=== PATIENT | female | born 1950 | race Caucasian/White ===

== ENCOUNTER 2021-10-22 14:13 | Outpatient (REF) | payer MEDICARE, BC, SELFPAY ==
[2021-10-22 14:47] LABS: Hematocrit 41.2 % (33.0-51.0); Hemoglobin* 13.6 gm/dL (12.0-16.0); Mean Corpuscular HGB Conc 33 gm/dL (32-36); Mean Corpuscular Hemoglobin 29 pg (26-34); Mean Corpuscular Volume 87 fL (80-100); Platelet Count* 246 K/uL (140-440); Red Blood Count 4.72 m/uL (4.00-5.20); White Blood Count* 5.62 K/uL (4.50-11.00)
[2021-10-22 15:07] LABS: Albumin* 4.1 g/dL (3.3-5.0)
[2021-10-22 15:09] LABS: Aspartate Amino Transferase* 73 U/L (12-35); Estimated Glomerular Filt Rate 61 ml/min
[2021-10-22 15:10] LABS: Alanine Aminotransferase* 54 U/L (4-35); Creatine Kinase* 1240 U/L (41-117)
[2021-10-22 15:27] LABS: Slide Review Reflex No
[2021-10-22 15:29] LABS: C Reactive Protein* < 0.5 mg/dL (0.5-1.0)
[2021-10-22 16:47] LABS: Erythrocyte SedimentationRate* 6 mm/hr (2-20)
== END 2021-10-22 14:14 | disposition home or self-care (01) ==
LOC: NPINS 14:13
PROVIDERS: PCP Family Medicine; Visit Provider Internal Medicine Rheumatology
DX: Z79.899 Other long term (current) drug therapy (principal)
CPT/HCPCS: 82040; 82550; 82565; 84450; 84460; 85027; 85651; 86140

== ENCOUNTER 2021-11-06 09:44 | Outpatient (CLI) | payer MEDICARE, BC, SELFPAY ==
[2021-11-06 14:42] LABS: Cholesterol* 163 mg/dL (90-199); HDL Cholesterol* 56 mg/dL (>=50); LDL Cholesterol Calculated 37 mg/dL (<100); Triglycerides* 351 mg/dL (40-149)
[2021-11-06 15:07] LABS: Vitamin D 25 Hydroxy* 86 ng/mL (30-80)
== END 2021-11-06 09:45 | disposition home or self-care (01) ==
PROVIDERS: PCP Family Medicine; Visit Provider Family Medicine
DX: E78.5 Hyperlipidemia, unspecified (principal); M85.80 Other specified disorders of bone density and structure, unspecified site; R79.89 Other specified abnormal findings of blood chemistry
CPT/HCPCS: 80061; 82306

== ENCOUNTER 2022-03-06 09:25 | Outpatient (CLI) | payer MEDICARE, BC, SELFPAY ==
[2022-03-06 15:05] LABS: Basophils Absolute Auto 0.01 K/uL (0.00-0.30); Basophils Percent Auto 0.2 % (0.0-3.0); Eosinophils Absolute Auto 0.08 K/uL (0.00-0.50); Eosinophils Percent Auto 1.3 % (0.0-7.0); Hemoglobin* 14.5 gm/dL (12.0-16.0); Immature Granulocytes Abs Auto 0.03 K/uL (0.00-0.30); Immature Granulocytes Pct Auto 0.5 %; Lymphocytes Percent Auto 46.3 % (20-44); Mean Corpuscular HGB Conc 33 gm/dL (32-36); Mean Corpuscular Hemoglobin 29 pg (26-34); Mean Corpuscular Volume 88 fL (80-100); Neutrophils Percent Auto 40.7 % (42.0-72.0); Platelet Count* 227 K/uL (140-440); RDW Coefficient of Variation % 12.3 % (11.5-15.5); Red Blood Count 5.01 m/uL (4.00-5.20); White Blood Count* 6.02 K/uL (4.50-11.00)
[2022-03-06 15:10] LABS: Slide Review Reflex No
[2022-03-06 15:11] LABS: Albumin* 4.7 g/dL (3.3-5.0); Chloride* 105 mmol/L (96-114)
[2022-03-06 15:12] LABS: Potassium* 4.4 mmol/L (3.6-5.1); Sodium* 140 mmol/L (135-149)
[2022-03-06 15:14] LABS: Aspartate Amino Transferase* 70 U/L (12-35); Bilirubin Direct* 0.6 mg/dL (0.0-0.5); Bilirubin Total* 0.6 mg/dL (0.1-1.5); Blood Urea Nitrogen* 20 mg/dL (7-30); Carbon Dioxide* 27 mmol/L (20-32); Estimated Glomerular Filt Rate 61 ml/min; Total Protein* 7.5 g/dL (6.0-8.3)
[2022-03-06 15:15] LABS: Alanine Aminotransferase* 68 U/L (4-35); Alkaline Phosphatase* 110 U/L (40-150); Calcium* 9.6 mg/dL (8.4-10.6); Glucose* 146 mg/dL (60-115)
== END 2022-03-06 09:26 | disposition home or self-care (01) ==
PROVIDERS: PCP Family Medicine; Visit Provider Family Medicine
DX: R79.89 Other specified abnormal findings of blood chemistry (principal); I10 Essential (primary) hypertension
CPT/HCPCS: 80048; 80076; 85025

== ENCOUNTER 2022-11-05 10:34 | Day surgery (SDC) | payer MEDICARE, BC, SELFPAY ==
[2022-11-05] VITALS (9 sets, daily range): BP systolic 126–150; BP diastolic 60–80; PULSE 65–79; RESP 16; TEMP 36.6–36.7; O2SAT 93–95; BMI 29.7
[2022-11-05] MEDS: BUPIVACAINE 0.5% 30 ML INJECTION ×2 (10:38→12:49)
[2022-11-05] MEDS: ETHYL CHLORIDE 1 APPLICATION 1 APPLIC TOPICAL (11:22)
--- NOTE | 2022-11-05 13:07 | PM.ORPRC ---
Procedure Note Date of procedure: 11/05/22 Procedure: PREOPERATIVE DIAGNOSIS: 1. Right thumb, index, and long finger flexor tenosynovitis - trigger finger POSTOPERATIVE DIAGNOSIS: 1. Right thumb, index, and long finger flexor tenosynovitis - trigger finger PROCEDURE: 1. Right Thumb, index, and long finger A1 jax release - trigger finger release SURGEON: Angel Ferrara MD. [employer] MANUFACTURING SUPERVISOR: Andressa Espinoza ANESTHESIA: Local anesthetic 8 mL via 50:50 mixture of 1% Lidocaine with epi and 0.5% marcaine plain EBL: 5mL IMPLANTS: None TOURNIQUET: none COMPLICATIONS: None evident INDICATIONS: The patient is a pleasant 72-year-old female who has experienced right thumb, index, and long finger catching/triggering for number of months. It has progressively gotten worse. Given the failure of nonoperative management, and how this affects daily life, surgery was recommended. DESCRIPTION OF PROCEDURE: Following a thorough discussion of risks, benefits, and alternatives consent was obtained and the operative digit(s) was marked. The patient was brought to the operating room and placed supine on the operating table. Local anesthesia induction was undertaken in preop holding. No antibiotics were administered as this was planned to be a local case only. Proper time-out was performed identifying proper patient, site, and procedure. The operative extremity was prepped and draped in the appropriate sterile fashion using ChloraPrep. A incision was made on the palmar surface of the hand overlying the MCP joint region of the appropriate digit(s) respecting the palmar creases being cautious not to cross these perpendicularly. Sharp incision through the skin, and blunt dissection through subcutaneous tissue allowing protection of crossing neurologic structures. The A1 jax was visualized directly. It was incised sharply with a 15 blade. It was released completely from its distal to proximal extent under direct visualization. The tendon was inspected and found to be mildly striated consistent with some friction. Otherwise, it was intact. The tendon was removed out of the wound, and further inspected. The patient was asked to manually flex and extend the digits and showed no further catching. The catching, which was visualized initially, was no longer evident with reproduction of a manual fist and relaxation. Closure was performed with 4-O nylon in interrupted fashion. Soft dressings were applied, and the patient was transferred to the recovery room in stable condition. PLAN: 1. Encourage elevation of the operative extremity. 2. Range of motion of the fingers and hand/wrist as tolerated. 3. Ibuprofen/acetaminophen and/or oxycodone as needed for pain control. 4. Follow up with PA visit in 12-16 days for wound check and suture removal.
== END 2022-11-05 13:44 | disposition home or self-care (01) ==
PROVIDERS: PCP Family Medicine; Visit Provider Orthopaedic Surgery Sports Medicine
PROC: (CPT 26055; principal; 2022-11-05 12:15)
DX: M65.311 Trigger thumb, right thumb (principal); M65.841 Other synovitis and tenosynovitis, right hand
CPT/HCPCS: 26055; J0665

== ENCOUNTER 2022-12-25 11:14 | Outpatient (CLI) | payer MEDICARE, BC, SELFPAY | END 2022-12-25 11:15 | disposition home or self-care (01) | PROVIDERS: PCP Family Medicine; Visit Provider Family Medicine | DX: Z00.00 Encounter for general adult medical examination without abnormal findings (principal); E11.9 Type 2 diabetes mellitus without complications; R79.89 Other specified abnormal findings of blood chemistry; E55.9 Vitamin D deficiency, unspecified; E78.5 Hyperlipidemia, unspecified; I10 Essential (primary) hypertension | CPT/HCPCS: 80048; 80061; 80076; 85025 ==

== ENCOUNTER 2023-09-14 11:22 | Outpatient (CLI) | payer MEDICARE, BC, SELFPAY ==
--- OUTSIDE RECORDS SUMMARY | 2023-09-14 11:27 | XMS_ITS | Continuity of Care Document ---
Author Organization [facility] Address [address] [place] [address] Phone Care Team Providers Care Production Intern Name Role Phone Leyla SRIVASTAVA, PhD, Javi Unavailable Unavai lable Allergies, Adverse Reactions, Alerts Substance Reaction Status Criticality tizanidine Active No Information gluten Active No Information Gyuixnv-REG-GpG Reductase Inhibitors Acti ve No Information POLYMYXIN B SULFATE Active No Infor mation neomycin Active No Information dexamethasone Active No Information Medications Medication Instructions Dosage Effective Dates (start - stop) Status Comments GLIMEPIRIDE (unknown strength) Not Available - Active OMEPRAZOLE (unknown strength) Not Available - Active ASPIRIN (unknown strength) Not Available - Active BUTALBITAL-ACETAMINO PHEN-CAFFE (unknown strength) Not Available - Active CALCIUM (unknown strength) Not Available - Active ZYRTEC (unknown strength) Not Available - Active CO Q-10 (unknown strength) Not Available - Active TRULICITY (unknown strength) Not Available - Active LEXAPRO (unknown strength) Not Available - Active FLONASE ALLERGY RELIEF (unknown strength) Not Available - Active GABAPENTIN (unknown strength) Not Available - Active KETOCONAZOLE (unknown strength) Not Available - Active LEVOTHYROXINE SODIUM (unknown strength) Not Available - Active LISINOPRIL (unknown strength) Not Available - Active SULFASALAZINE (unknown strength) Not Available - Active XELJANZ (unknown strength) Not Available - Active ZOLPIDEM TARTRATE (unknown strength) Not Available - Active VASCEPA (unknown strength) Not Available - No Longer Active THERACAL (unknown strength) Not Available - No Longer Active FOLIC ACID (unknown strength) Not Available - No Longer Active MAGNESIUM (unknown strength) Not Available - No Longer Active Procedures Procedure Date Office/Outpatient Visit,Est, Mod 2023 Office/Outpatient Visit,Est, Mod 2021 Postop Followup Visit Postop Followup Visit TLIF - Includes PSF at the same level - PA Lami, Facetectomy/Foraminotomy, Lumbar ( Stenosis) Lami, Facetectomy/Foraminotomy - Additio nal Level(s) - PA Posterior Instrumentation, Non-segmental - PA PEEK/ Cage/ Implant, For Interbody Fusio n - PA TLIF - Includes PSF at the same level Lami, Facetectomy/Foraminotomy, Lumbar ( Stenosis) Lami, Facetectomy/Foraminotomy - Additio nal Level(s) Posterior Instrumentation, Non-segmental PEEK/ Cage/ Implant, For Interbody Fusio n Office/Outpatient Visit,New, Mod 2019 Advance Directives Directive Yes / No Effective Date File Name No Information Encounters Encounter Description Practice Location Reason(s) For Visit Diagnoses Date Provider Providers Copied on Encounter Office/Outpat ient Visit,Est, Mod [facility], [address], [place], [id number], [place] tel:[phone] [facility] - [facility] Arthrodesis status Leyla Caldwell. [facility], [address], [place], [address], [place]. tel:[phone] Referring Provider: Glenn Francisco, [address], [address]. tel:[phone] Office/Outpat ient Visit,Est, Mod [facility], [address], [place], [id number], [place] tel:[phone] [facility] Arthrodesis status Leyla Caldwell. [facility], [address], [place], [address], [place]. [phone] Referring Provider: Glenn Francisco, [facility][Note 3] [address] [place], [address]. tel:[phone] [facility], [address], [place], [id number], [place] tel:[phone] [facility] Arthrodesis status Leyla Caldwell. [facility], [address], [place], [address], [place]. [phone] Referring Provider: Glenn Francisco, [facility][Note 3] [address] [place], [address]. tel:[phone] [facility], [address], [place], [id number], [place] tel:[phone] [facility] Arthrodesis status Leyla Caldwell. [facility], [address], [place], [address], [place]. [phone] Referring Provider: Glenn Francisco, [facility][Note 3] [address] [place], [address]. tel:[phone] [facility], [address], [place], [id number], [place] tel:[phone] [facility] No Information Chris Bailey. [facility], [address], [facility], [id number] , [place]. [phone] Referring Provider: Glenn Francisco, [facility][Note 3] [address] [place], [address]. tel:[phone] [facility], [address], [place], [id number], [place] tel:[phone] [facility] No Information Leyla Caldwell. [facility], [address], [place], [address], [place]. tel:[phone] [facility]: [facility] [address] [place], [address]. tel:[phone] Office/Outpat ient Visit,[facility], [facility], [address], [place], [place], [id number], [place] tel:[phone] [facility] [place] Spondylolisth esis, lumbar region Leyla Caldwell. [facility], [address], [place], [address], [place]. tel:[phone] Referring [facility]: [facility] [address] [place], [address]. tel:[phone] [facility], [address], [facility] [place], [id number], [place] tel:[phone] [facility] - [place] Low back pain Leyla Caldwell. [facility], [address], [place], [address], [place]. tel:[phone] Family History Family Member Type Diagnosis Age At Onset No Information Payers Payer name Insurance type Covered constitution party [place] [id number] Medicare [facility] [id number] Social History Type Description Quantity Date Captured Comments Alcohol Use Details Unknown Caffeine Use Details Unknown Tobacco Use Status Current non-smoker Smoking Status Former smoker Non-Smoking Tobacco Use Details : No Details Available : No Details Available Sex Female Vital Signs Date / Time: Height Weight BMI Pulse Rate Blood Pressure Temperature Respiratory Rate Body Surface Area Head Circumference Head Circ. Percentile Wt./Denys. Percentile BMI percentile Pulse Ox Inhaled Ox 1:51 PM 59.00 in 69.853 kg (154.00 lbs) 31.1 0 kg/m eter (2) Chief Complaint And Reason For Visit No Information Reason For Referral Reason For Referral No Information History Of Present Illness Encounter Date Complaint History Of Prese nt Illness No Information Functional Status Date Functional Assessmen t No Information Instructions Date Instruction Additional Infor mation No Information Assessments Type Assessment Date No Information Patient Care Teams Name Effective Dates (start - stop) Status Members No Information
--- OUTSIDE RECORDS SUMMARY | 2023-09-14 11:27 | XMS_ITS ---
Author Organization [facility] Address [address] [place] [address] Care Team Providers Care Return To Service Inspector Name Role Phone Unavailable Unavailable Unavailable Surgery Details Not on file Complications Check Surgery Details section. Procedure Estimated Blood Loss Check Surgery Details section. Procedure Findings Check Surgery Details section. Procedure Specimens Taken Check Surgery Details section.
--- OUTSIDE RECORDS SUMMARY | 2023-09-14 11:27 | XMS_ITS | Clinical Summary ---
Author Organization [facility] Address [address] [place] [address] Care Team Providers Care Swamper Name Role Phone Unavailable Primary Care Provider Unavailabl e Source Comments You are receiving this document as you are listed as the primary care provider,follow-up provider, or the patient has been referred to you for consultation.This is in compliance with the Medicare and[facility] Hospital[facility] EHR Incentive Program,which states Providers who transition their patient to another setting of careor provider of care or refers their patient to another provider of care shouldprovide summary care record for each transition of care or referral. [facility] Allergies Active Allergy Reactions Criticality Noted Date Comments Dexamethasone Edema,generalized,Ot her, see comments Low 11/22/2019 Periorbital edema Gluten Meal Diarrhea High 09/07/2015 Neomycin Edema,generalized,Ot her, see comments Low 11/22/2019 Periorbital edema Polymyxin B Edema,generalized,Ot her, see comments Low 11/22/2019 Periorbital edema Simvastatin Myalgias 09/07/2015 Leg cramps Tizanidine Hypotension 07/12/2020 Medications Medication Sig Dispensed Refills Start Date End Date Status nitroglycerin (NITROSTAT) 0.4 MG sublingual tablet Once 04/03/2021 Active lisinopril (ZESTRIL) 30 MG tablet Daily Active fluticasone propionate (FLONASE) 50 MCG/ACT nasal solution Daily Active alirocumab (PRALUENT) 150 MG/ML pen injector Inject 150 mg subcutaneously. 05/06/2021 Active aspirin 81 MG chewable tablet Daily Active Coenzyme Q10 100 MG Active sulfaSALAzine (AZULFIDINE) 500 MG tablet Take 500 mg by mouth daily. Active tofacitinib Citrate (XELJANZ) 5 MG TABS Take 5 mg by mouth two times a day. 08/15/2021 Active levothyroxine (SYNTHROID) 88 MCG tablet Take 1 Tablet (88 mcg) by mouth daily. 90 Tablet 3 08/15/2021 Active dulaglutide (TRULICITY) 1.5 MG/0.5ML injection pen Trulicity 1.5 mg/0.5 mL subcutaneous pen injector Active Cetirizine HCl 10 MG/ML SOLN Take 10 mg by mouth daily. 03/02/2014 Active gabapentin (NEURONTIN) 300 MG capsule Take 300 mg by mouth daily. 03/02/2015 Active Active Problems Problem Noted Date Diagnosed Date HESTER (nonalcoholic steatohepatitis) 10/10/2021 Allergic rhinitis 08/15/2021 Anxiety 08/15/2021 Depression 08/15/2021 DOWNING (dyspnea on exertion) 08/15/2021 History of cancer of vulva 08/15/2021 History of migraine 08/15/2021 History of non-ST elevation myocardial infarctio n (NSTEMI) 08/15/2021 History of total abdominal hysterectomy 08/16/19 History of vitamin D deficiency 08/15/2021 Insomnia 08/15/2021 Low back pain 08/15/2021 Osteoarthritis of knees, bilateral 08/15/2021 Osteopenia 08/15/2021 Sleep apnea 08/15/2021 Spondylolisthesis 03/22/2020 Spinal stenosis, lumbar veda on, with neurogenic claudication 03/22/2020 Essential hypertension 2018 Diabetes mellitus, type 2 07/06/2016 Hyperlipidemia 07/06/2016 ASCVD (arteriosclerotic cardiovascular disease) 09/23/2015 History of cardiac catheterization 09/07/2015 Hypothyroidism 07/29/2015 Subjective tinnitus 01/05/2012 Vitamin D deficiency 09/17/2010 Enthesopathy of ankle and tarsus 12/03/2006 Migraine headache 11/29/2006 Rheumatoid arthritis 07/27/2006 Overview: Arthritis, rheumatoid* History of tonsillectomy and adenoidectomy 08/13 Immunizations Name Administration Dates Next Due DTaP 07/27/2007 Flu Vac (3+ yrs) 11/30/2012, 2,11/27/2010,2009,02/02/2009,01/10/2008 Flu Vac Preserv Free (3+yrs) 02/02/2009 Flublok (RIV4) 01/10/2019 Influenza (Fluad) 01/07/2018 Influenza IIV4 (Quadrivalent ) 0.5mL (77091) 01/10/2019,01/07/2018,12/31/2016,2015,12/28/2014,11/30/2013 Influenza IIV4 (Quadrivalent ) Fluzone, 65+ Yrs 11/22/2020,01/19/2020 Influenza, Unspecified Formulation 02/02/2009, PCV13 (Prevnar) 01/07/2018 PPSV23 (Pneumovax) 02/13/2010 Pfizer Monovalent 12+ Purple Top 02/12/2021,04/0 04/2020,05/12/2020 Tdap 07/27/2007 Zoster RZV (Shingrix) 10/16/2019,03/10/2019 Social History Tobacco Use Types Packs/Day Years Used Date Smoking Tobacco: Former Cigarettes Smokeless Tobacco: Never Tobacco Cessation:Counseling Given: Not Answered Alcohol Use Standard Drinks/Week Comments Not Currently 0 (1 standard drink = 0.6 oz pur e alcohol) Sex and Gender Information Value Date Recorded Sex Assigned at Female 08/23/2021 4:53 PM CDT Gender Identity Female 08/23/2021 4:53 PM CDT Sexual Orientation Not on file Last Filed Vital Signs Vital Sign Reading Time Taken Comments Blood Pressure 93/52 08/21/2021 9:45 AM CDT Pulse 75 08/21/2021 9:45 AM CDT Temperature 36.9 ??C (98.4 ??F) 08/21/2021 7:16 AM CD T Respiratory Rate 16 08/21/2021 8:40 AM CDT Oxygen Saturation 96% 08/21/2021 9:45 AM CDT Inhaled Oxygen Concentration - - Weight 67.8 kg (149 lb 8 oz) 10/09/2021 1:03 PM CDT Height 152.4 cm (5') 10/09/2021 1:03 PM CDT pt r eported Body Mass Index 29.2 10/09/2021 1:03 PM CDT Plan of Treatment Health Maintenance Due Date Last Done Comments Colon Cancer Screening Plan Due 1952 Diabetes: Eye Exam 1952 Diabetes: Foot Exam 1950 Diabetes: Lipid Panel 1952 Diabetes: Urine Microalbumin 1950 Hep C Screening (Preventive Services) 1950 Medicare Welcome Visit 1950 Mammogram 1950 Dexa 01/24/2017 DTaP/Tdap/Td (3 - Tdap) 07/26/2017 07/27/2007, 07/26 Diabetes: HGBA1C 04/09/2018 01/07/2018, 03/2013, 06/08/2013 Pneumococcal 65+ Yrs (3 - PPSV23 or PCV20) 01/07/2019 01/07/2018, 02/13/2010 Diabetes: Creatinine 10/09/2022 10/09/2021 COVID-19 Vaccine ( season) 2022 02/12/2021, 06/02/2020, 05/12/2020 Influenza (#1) 2023 11/22/2020, 12/31, 01/10/2019, Additional history exists Zoster/Shingles Completed 10/16/2019, 03/10/2019 HepA Aged Out No longer eligi ble based on patient's age to complete this topic HepB Aged Out No longer eligi ble based on patient's age to complete this topic Hib Aged Out No longer eligi ble based on patient's age to complete this topic IPV (Polio) Aged Out No longer eligi ble based on patient's age to complete this topic MCV4 Aged Out No longer eligi ble based on patient's age to complete this topic Procedures Procedure Name Priority Date/Time Associated Diagnosis Comments CREATININE / GFR Routine 10/09/2021 1:50 PM CDT HESTER (nonalcoholic steatohepatitis) from Last 3 Months or Most Recently Relevant to Health Maintenance Results * Creatinine / GFR (10/09/2021 1:50 PM CDT) Creatinine 0.90 0.55 - 1.02 mg/dL 10/09/2021 3:25 PM CDT [facility] GFR, Estimated >60 >60 mL/min/1.7 3m2 10/09/2021 3:25 PM CDT [facility] Blood Venipuncture / Unknown 10/09/2021 1:50 PM CDT 10/09/2021 1:50 PM CDT Sushila Tapia APRN, [facility] [address] [place] [address], [facility] [phone] from Last 3 Months or Most Recently Relevant to Health Maintenance
--- OUTSIDE RECORDS SUMMARY | 2023-09-14 11:27 | XMS_ITS | Referral Summary ---
Author Organization [facility] Address [address] [place] [address] Care Team Providers Care Corporate Safety Director Name Role Phone Unavailable Primary Care Provider Unavailabl e Source Comments Patient records contain information from all sites at [facility]. For routine questions regarding patient records, call [phone] during business hours, M-F 8:00 AM - 5:00 PM Central Time. Record requests for emergency care only can be directed to [phone] at any time.[facility] Allergies Active Allergy Reactions Criticality Noted Date Comments Neomycin-Polymyxin B-Dexameth Edema (Reselect Reaction) 05/27/2022 Medications Medication Sig Dispensed Refills Start Date End Date Status cetirizine (ZyrTEC) 10 mg tablet Take 1 tablet by mouth daily. 07/07/2018 Active dulaglutide (Trulicity) 1.5 mg/0.5 mL pen injector injection Inject 1.5 mg under the skin over 168 hr. 06/05/2020 Active lisinopriL (PRINIVIL,ZESTRIL) 30 mg tablet Take 30 mg by mouth. 08/21/2020 Ac tive sulfaSALAzine (AZULFIDINE) 500 mg tablet Take 2 tablets by mouth 2 (two) times a day. 01/04/2015 Active sulfaSALAzine (AZULFIDINE) 500 mg tablet Take 500 mg by mouth daily. Active co-enzyme Q-10 (CO Q-10) 100 mg capsule Take 100 mg by mouth. Act simin tofacitinib (XELJANZ) 5 mg tablet Take 1 tablet by mouth 2 (two) times a day. 05/07/2015 Active prednisoLONE acetate (PRED FORTE) 1 % ophthalmic suspension prednisolone acetate 1 % eye drops,suspension Active omega-3 fatty acids-fish oil 684-1,200 mg capsule,delayed release(DR/EC) Take 2000 mg (of kothari ingredients EPA + DHA) 2 times per day 09/07/2015 Active omeprazole (PriLOSEC) [address] capsule Take 20 mg by mouth at bedtime as needed. 02/23/2020 Active nitroglycerin (NITROSTAT) 0.[address] 0.4 mg under the tongue every 2 (two) hours as needed. 04/03/2021 Active metroNIDAZOLE (METROCREAM) 0.75 % cream Apply topically. 02/02/2017 Active levothyroxine (SYNTHROID, LEVOTHROID) 88 mcg tablet Take 88 mcg by mouth daily. 04/10/2022 Active levothyroxine (SYNTHROID, LEVOTHROID) 88 mcg tablet Take 1 tablet by mouth daily. 02/06/2014 Active gabapentin (NEURONTIN) 300 mg capsule Take 300 mg by mouth daily. 03/02/2015 Active icosapent ethyL (VASCEPA) 1 gram capsule capsule Take 2 g by mouth. 04/03/2021 A ctive Active Problems Problem Noted Date Diagnosed Date Arthritis Rheumatoid 10/06/2012 Overview: Arthritis, rheumatoid* Immunizations Name Administration Dates Next Due DTaP (Infanrix, Tripedia) 07/27/2007 Influenza, Unspecified 02/02/2009,12/31/2007 Social History Tobacco Use Types Packs/Day Years Used Date Smoking Tobacco: Unknown Nutrition Answer Date Recorded Nutrition: EVOO Fat Source Unknown 05/05 Nutrition: Servings of Fruits/Vegetables per Day Not on file 05/05/2022 Dental Answer Date Recorded Dental: Regular Dentist Unknown 05/06/19 23 Sex and Gender Information Value Date Recorded Sex Assigned at Not on file Gender Identity Not on file Sexual Orientation Not on file Last Filed Vital Signs Vital Sign Reading Time Taken Comments Blood Pressure 130/72 05/27/2022 1:44 PM CDT Pulse 66 07/12/2015 2:56 PM CDT Temperature - - Respiratory Rate - - Oxygen Saturation - - Inhaled Oxygen Concentration - - Weight 68 kg (149 lb 14.6 oz) 05/27/2022 1:44 PM CDT Height 150 cm (4' 11.06) 10/11/2015 4:45 PM CDT Body Mass Index 30.22 10/11/2015 4:45 PM CDT Plan of Treatment Not on file Procedures Procedure Name Priority Date/Time Associated Diagnosis Comments EXTI BASIC METABOLIC PANEL, S/P Routine 03/25/2020 6:17 AM TURRET PRESS OPERATOR EXTI THYROID-STIMULATING HORMONE-SENSITIVE (S-TSH), S Routine 01/07/2018 8:35 AM TURRET PRESS OPERATOR from Last 3 Months or Most Recently Relevant to Health Maintenance Advance Directives For more information, please contact: [phone] Documents on File Type Date Recorded Patient Social Work Professor Expl 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
--- OUTSIDE RECORDS SUMMARY | 2023-09-14 11:27 | XMS_ITS | Clinical Summary ---
Author Organization [facility] Address [address] [place] [address] Care Team Providers Care Principal Android Developer Name Role Phone Unavailable Primary Care Provider Unavailabl e Source Comments Patient records contain information from all sites at [facility]. For routine questions regarding patient records, call [phone] during business hours, M-F 8:00 AM - 5:00 PM Central Time. Record requests for emergency care only can be directed to [phone] at any time.[facility] Allergies Active Allergy Reactions Criticality Noted Date [...] 10/11/2015 4:45 PM CDT Plan of Treatment Health Maintenance Due Date Last Done Comments Bone Density Scan (Osteoporosis Screen) 1952 CT Colonography 1950 Cologuard 1950 FIT 1950 Hepatitis C Screening 1950 Mammogram 1950 Pneumococcal vaccine (65+ years) (3 of 3 - PPSV23 or PCV20) 03/04/2018 01/07/2018, 02/13/2010 Thyroid Stimulating Hormone (TSH) test for thyroid function 01/07/2019 01/07/2018 Creatinine Level (Kidney Function Test) 03/25/2021 03/25/2020, 03/24/2020, 03/23/2020, Additional history exists Potassium Level 03/25/2021 03/25/2020, 03/03, 03/23/2020, Additional history exists Sodium Level 03/25/2021 03/25/2020, 03/03, 03/23/2020, Additional history exists Colonoscopy 11/30/2021 12/01/2011 Colorectal Cancer Screening 11/30/2021 COVID-19 Vaccine ( season) 2022 12/03/2021, 02/12/2021, 06/02/2020, Additional history exists Depression Screening (Annual PHQ-2) 03/02/2023 Fall Risk Screen (Annual) 03/02/2023 Fasting Glucose for Diabetes Screening 03/25/2023 03/25/2020, 03/24/2020, 03/23/2020, Additional history exists Influenza Vaccine (#1) 2023 , 12/03/2021, 11/22/2020, Additional history exists DTaP,Tdap,and Td Vaccines (3 - Td or Tdap) 07/29/2032 07/29/2022, 07/27/2007, 07/27/2007 Zoster Vaccines Completed 10/16/2019, 03/10/2019 HPV Vaccines Aged Out No longer eligi ble based on patient's age to complete this topic Procedures Procedure Name Priority Date/Time Associated Diagnosis Comments EXTI BASIC METABOLIC PANEL, S/P Routine 03/25/2020 6:17 AM RIM BUSTER EXTI THYROID-STIMULATING HORMONE-SENSITIVE (S-TSH), S Routine 01/07/2018 8:35 AM RIM BUSTER from Last 3 Months or Most Recently Relevant to Health Maintenance Advance Directives For more information, please contact: [phone] Documents on File Type Date Recorded 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
--- OUTSIDE RECORDS SUMMARY | 2023-09-14 11:27 | XMS_ITS | Clinical Summary ---
Author Organization [employer] [facility] Address [place], [place] [address] Care Team Providers Care Docketing Specialist Name Role Phone Glenn Francisco MD Primary Care Provider + Allergies Active Allergy Reactions Criticality Noted Date Comments Dexamethasone Edema 03/21/2020 Periorbital edema Gluten Diarrhea 09/07/2015 Neomycin-Polymyxin B-Dexameth Rash 2008 Periorbital edema Neomycin Edema 03/21/2020 Periorbital edema Polymyxin B Edema 03/21/2020 Periorbital edema Simvastatin Myalgia 09/07/2015 Leg cramps Qqcsvjk-Ooh-Bcq Reductase Inhibitors Myalgia 11/30/2013 Leg cramps Sunlight Rash 12/28/2006 Tizanidine Hypotension 07/12/2020 Medications Medication Sig Dispensed Refills Start Date End Date Status aspirin 81 mg tablet Take 1 tablet by mouth once daily with a meal. 0 10/15/2009 Active lancets (MICROLET LANCET) Test 3 times a day 300 Each 1 08/25/2011 Active blood sugar diagnostic (ASCENSIA CONTOUR) strip Test 3 times a day 300 Each 12 11/30/2012 Active tofacitinib (XELJANZ) 5 mg tabIndications:Rheum atoid arthritis, involving unspecified site, unspecified rheumatoid factor presence Take 1 tablet by mouth 2 times daily. 0 05/07/2015 Active sulfaSALAzine (SULFAZINE EC) 500 mg extended-release tablet Take 1 Tab by mouth 2 times daily. 0 06/12/2015 Active Fish Oil-Waller-3 Fatty Acids (OMEGA 3 FISH OIL) 684-1,200 mg capsuleIndications:D yslipidemia Take 2000 mg (of kothari ingredients EPA + DHA) 2 times per day 0 09/07/2015 Active wpnjvga-ftfsbrdq-vim albital, 325-40-50 mg, (FIORINAL) capsuleIndications:M igraine with aura and without status migrainosus, not intractable Take 1 capsule by mouth every 4 hours if needed for Migraine. Max 4 capsules per day. 30 capsule 02/02/2017 Active metroNIDAZOLE 0.75 % creamIndications:Ros acea Apply topically to affected area(s) 2 times daily. to face 45 g 2 02/02/2017 Active ketoconazole 2% topical (NIZORAL) cream Apply topically to affected area(s) 2 times daily. 60 g 01/07/2018 Active gabapentin (NEURONTIN) 300 mg capsuleIndications:M yalgia TAKE 2 CAPSULES BY MOUTH AT BEDTIME 180 capsule 2 04/01/2018 Active ketotifen (ZADITOR) 0.025 % (0.035 %) ophthalmic solutionIndications: Allergic conjunctivitis of both eyes Place 1 Drop into both eyes 2 times daily. 1 Bottle 2 04/09/2018 Active cetirizine (ZYRTEC) 10 mg tablet Take 1 tablet by mouth once daily. 0 07/07/2018 Active zolpidem (AMBIEN) 5 mg tablet TAKE 1 TABLET BY MOUTH EVERY DAY AT BEDTIME NEEDED FOR SLEEP 0 12/20/2018 Active escitalopram oxalate (LEXAPRO) 20 mg tabletIndications:De pression, unspecified depression type Take 1 tablet by mouth once daily. 90 tablet 2 08/23/2019 Active omeprazole (PRILOSEC) 20 mg Delayed-Release capsule Take 20 mg by mouth once daily if needed. 02/23/2020 Active levothyroxine (SYNTHROID) 88 mcg tablet Take 88 mcg by mouth once daily. 03/03/2020 Active fluticasone (50 mcg per actuation) nasal solution (FLONASE) Inhale 2 Sprays in the nostril(s) once daily. Active coenzyme q10 100 mg cap Take 100 mg by mouth once daily. Active magnesium citrate 100 mg tab Take 300 mg by mouth 2 times daily. In afternoon and again in the evening Active Trulicity 1.5 mg/0.5 mL injection Inject 1.5 mg subcutaneous once weekly. 06/05/2020 Active Ca Itv-C6-G-Mgox-stron- sod bor (TheraCal D2000) 250 mg calcium -500 unit tab Take 2 Tablets by mouth once daily. 0 07/12/2020 Active methotrexate (RHEUMATREX) 2.5 mg tabletIndications:rh eumatoid arthritis As directed 6 Tablets (15 mg) once weekly. Take 8 tablets weekly (20 mg) 0 07/12/2020 Active folic acid 1 mg tabletIndications:Rh eumatoid arthritis, seropositive (HC) Take 2 Tablets (2 mg) by mouth once daily. 90 tablet. 2 07/12/2020 Active lisinopriL (PRINIVIL; ZESTRIL) 30 mg tabletIndications:Hy pertension Take 1 Tablet (30 mg) by mouth once daily. Due for cardiology appointment, please call to schedule for further refills. 30 tablet. 08/21/2020 Active prednisoLONE acetate 1% ophthalmic (ECONOPRED PLUS, PRED FORTE, OMNIPRED) suspension prednisolone acetate 1 % eye drops,suspension Active icosapent ethyL (Vascepa) 1 gram capsuleIndications:A SCVD (arteriosclerotic cardiovascular disease) Take 2 g by mouth 2 times daily with meals. 60 Capsule 3 04/03/2021 Active nitroglycerin (NITROSTAT) 0.4 mg sublingual tabletIndications: CVD (arteriosclerotic cardiovascular disease) Place 1 Tablet (0.4 mg) under the tongue every 5 minutes if needed for Chest Pain. 25 Tablet 1 04/17/2023 Active evolocumab (Repjocelyne Quiroz) 140 mg/mL subcutaneous pen injectorIndications: Hyperlipidemia, unspecified hyperlipidemia type Inject 1 mL (140 mg) subcutaneous every 2 weeks. Inject into abdomen, thigh, or upper arm; rotate injection sites. 6 mL 2 07/17/2023 Active Active Problems Problem Noted Date Diagnosed Date Spondylolisthesis 03/22/2020 Spinal stenosis, lumbar veda on, with neurogenic claudication 03/22/2020 Essential hypertension 2018 Hyperlipidemia 07/06/2016 Controlled type 2 diabetes m ellitus without complication, without long-term current use of insulin 07/06/2016 ASCVD (arteriosclerotic cardiovascular disease) 09/23/2015 Hypothyroidism 07/29/2015 Subjective tinnitus 01/05/2012 Vitamin D deficiency 09/17/2010 Enthesopathy of ankle and tarsus, unspecified Migraine, unspecified, witho ut mention of intractable migraine without mention of status migrainosus 11/29/2006 Rheumatoid arthritis(714.0) 07/27/2006 DOWNING (dyspnea on exertion) Resolved Problems Problem Noted Date Diagnosed Date Resolved Date Hypertension 07/29/2015 2018 Vitamin D deficiency 01/18/2013 014 History of diabetes mellitus, type II 09/24/2009 07/06/2016 Overview: Much improved with weight loss and dietary changes. No longer on meds. Other and unspecified hyperlipidemia 11/29/2006 12/28/2014 Hypothyroidism 07/27/2006 12/28/2014 ATOPIC DERMATITIS 07/27/2006 09/23/2015 Unspecified essential hypertension 07/27/2006 12/28/2014 Abnormal cardiovascular stress test 09/23/2015 Dyslipidemia 07/06/2016 Chest pain 09/23/2015 S/P coronary angiogram 09/22 Encounters Date Type Department Care Team Description 07/17/2023 Refill [facility] [address] [place] [address] [place] Weaver MD Refill Request (John Quiroz) from Last 3 Months Immunizations Name Administration Dates Next Due COVID-19 vaccine (Travel Desiya-Bio NTech 30mcg/0.3mL) PFCHERYL 06/02/2020,05/12/2020 DTaP 07/27/2007 Influenza RIV4 (Age 18+ Year s) PRESERV FREE 01/10/2019 Influenza Virus, Unspecified 02/02/2009,12/31/19 08 Influenza, High-dose Quadriv alent Inactivated 01/19/2020 Influenza, IIV3 (Age >=3 years) 12/01/19 13,12/24/2011,11/27/2010,2009,02/02/2009,01/10/2008 Influenza, IIV4 12/31/2016, 6,12/28/2014,2013 Influenza, Inactivated IIV3 (Age 65+ Years) Preserv Free 01/07/2018 Pneumococcal Poly,23-Valent (Pneumovax) 02/13/2010 Pneumococcal conj 13-Valent (Prevnar 13) 01/07/2018 Tdap 07/27/2007 Tuberculin (PPD) 04/26/2008 Zoster (Shingrix-RZV, recombinant) 10/16/2019, Family History Medical History Relation Name Comments Hypertension Brother 1 Diabetes Brother 2 Alcohol/Drug Brother 3 EtOH Asthma Daughter Heart Disease Father Hypertension Father MA age 80 Diabetes Maternal Aunt Heart Disease Maternal Grandfather ? MA Stroke Maternal Grandfather ? Cancer-breast Maternal Grandmother age 75 Cancer-breast Maternal Uncle 1 Heart Disease Maternal Uncle 1 Thyroid Disease Maternal Uncle 2 Asthma Mother Cancer Mother lung with mets Heart Disease Mother CAGB x 3 Hypertension Mother Thyroid Disease Mother Thyroid Disease Other cousins Relation Name Status Comments Brother 1 Brother 2 Brother 3 Daughter Father Maternal Aunt Maternal Grandfather Maternal Grandmother Maternal Uncle 1 Maternal Uncle 2 Mother Other Social History Tobacco Use Types Packs/Day Years Used Date Smoking Tobacco: Former Cigarettes Q uit: 03/02/1987 Smokeless Tobacco: Never Tobacco Cessation:Counseling Given: Yes Comments:smoked 10-15 years 1 ppd quit 1987 Alcohol Use Standard Drinks/Week Comments No 0 (1 standard drink = 0.6 oz pur e alcohol) rare PHQ-2 Answer Date Recorded PHQ-2 Score 2 05/01/2018 Social Connections Answer Date Recorded Frequency of Communication with Friends and Fami ly Not on file 03/02/2021 Financial Resource Strain Answer Date R ecorded Difficulty of Paying Living Expenses Not on file 03/02/2021 Difficulty of Paying Living Expenses Not on file 03/02/2021 Sex and Gender Information Value Date Recorded Sex Assigned at Not on file Gender Identity Not on file Sexual Orientation Not on file Obstetrics History Para Term AB IAB SAB Ectopic Multiple Livin g Live Births 7 4 4 0 0 0 0 1 4 4 Date Outcome GA Total Labor Labor/2nd/3rd Weight Sex Type Anes PTL Margaret A1 A5 Name Clin Term Term Term Term 1975 40w 0d 2.32 kg (5 lb 2 oz) F Vag Livin g Jennif er 1975 40w 0d 6 kg (13 lb 3.6 oz) F Vag Livin g 9 9 Crow Melgar Delivery Location:[facility] 1980 40w 0d 2.66 kg (5 lb 14 oz) M Vag Livin g 8 9 Carter Delivery Location:[facility] 1980 40w 0d VAGINA L FORC Livin g 4 5 Carter Delivery Location:[facility] Last Filed Vital Signs Vital Sign Reading Time Taken Comments Blood Pressure 112/70 04/11/2022 10:07 AM CHIEF MEDICAL TECHNOLOGIST Pulse 66 04/11/2022 10:07 AM CHIEF MEDICAL TECHNOLOGIST Temperature 37.2 ??C (99 ??F) 07/18/2020 8:30 AM CDT Respiratory Rate 16 04/11/2022 10:0 7 AM CHIEF MEDICAL TECHNOLOGIST Oxygen Saturation 97% 04/11/2022 10: 07 AM CHIEF MEDICAL TECHNOLOGIST Inhaled Oxygen Concentration - - Weight 68.9 kg (151 lb 14.4 oz) 023 10:07 AM CHIEF MEDICAL TECHNOLOGIST Height 151.3 cm (4' 11.55) 04/11/2022 10:07 AM CHIEF MEDICAL TECHNOLOGIST Body Mass Index 30.12 04/11/2022 10:07 AM CHIEF MEDICAL TECHNOLOGIST Plan of Treatment Health Maintenance Due Date Last Done Comments Tetanus booster 07/26/2017 07/27/2007 Depression screening for age 12+ 01/07/2019 01/07/2018, 01/07/2018, 01/07/2017, Additional history exists Pneumococcal series for age 65+ (3 of 3 - PPSV23 or PCV20) 01/07/2019 01/07/2018, 02/13/2010 Medicare Wellness for age 65+ 01/08/2019 01/07/2018 Colonoscopy through age 75 01/08/202201/08, 12/28/2006, 12/28/2006 COVID-19 vaccine series ( season) 2022 12/03/2021, 02/12/2021, 06/02/2020, Additional history exists Lipids for age 45-75 01/07/2023 01/07/2018, 05/13/2017, 12/05/2016, Additional history exists BMI (ht and wt on same day) for age 18+ 04/11/2023 04/11/2022, 04/03/2021, 07/18/2020, Additional history exists Influenza for age 65+ 11/01/2023 01/19/2020 , 01/10/2019, 01/07/2018, Additional history exists Mammogram for age 45-75 03/04/2024 03/04/19 24, 01/27/2022, 2021, Additional history exists Tdap Completed 07/27/2007 Hepatitis C screening for ag e 18-79 Completed 08/17/2014 Zoster (shingles) series for age 50+ Completed 10/16/2019, 03/10/2019 DEXA/DXA scan for age 65+ Completed 2019 (Completed outside of [facility]), 06/30/2016, 06/30/2016, Additional history exists Medical Devices Implanted Type Area Remedial Reading Teacher Device Identifier Shelf Expiration Date Model / Serial / Lot Bone 1-4mm 60cc Medtronic Fine Canclls Freeze Dried - [id number] Implanted:Qty : 1 on 03/22/2020 by Javi Mayer MD at [facility] Spine Medtronic Spine/Ortho 08/12/2024 [id number] / [id number] / [id number] Globus 6.5 X 40mm Creo Threaded Implanted:Qty : 4 on 03/22/2020 by Javi Mayer MD at [facility] Bilateral: Spine [employer] [id number] / / Threaded Locking Cap Implanted:Qty : 4 on 03/22/2020 by Javi Mayer MD at [facility] Spine [employer] [id number] / / 40 Mm Kenny Curved Implanted:Qty : 2 on 03/22/2020 by Javi Mayer MD at [facility] Lumbar Vertebrae [employer] [id number] / / 9mm Sustain Arch- Peek Implanted:Qty : 1 on 03/22/2020 by Javi Mayer MD at [facility] Lumbar Vertebrae [employer] [id number] / / Procedures Procedure Name Priority Date/Time Associated Diagnosis Comments XR MAMMO BERNADETTE BILAT SCREEN Routine 03/04/2023 9:26 AM CHIEF MEDICAL TECHNOLOGIST Encounter for other screening for malignant neoplasm of breast LIPID PANEL W REFLEX MEASURED LDL Routine 01/07/2018 8:35 AM CHIEF MEDICAL TECHNOLOGIST Hyperlipidemia, unspecified hyperlipidemia type SCAN-BONE DENSITOMETRY DEXA 06/30/2016 12:00 AM CDT ANTI HCV Routine 08/17/2014 11:11 AM CDT Rheumatoid arthritis(714.0) (HC) Encounter for long-term (current) use of other medications COLONOSCOPY SCREENING Routine 01/09/2012 Special screening for malignant neoplasms, colon from Last 3 Months or Most Recently Relevant to Health Maintenance Results * XR MAMMO BERNADETTE BILAT SCREEN (03/04/2023 9:26 AM CHIEF MEDICAL TECHNOLOGIST) Anatomical Region Laterality Modality BREASTS, Breast Left, Breast Right Bilateral Mammography Impressions 03/04/2023 9:55 AM CHIEF MEDICAL TECHNOLOGIST ??There is no radiographic evidence for malignancy. ??Recommend annual mammograms. MAMMOGRAM ASSESSMENT: ??ACR 1 Negative PATIENTS: You will also receive a letter with your examination results in an easy to read format. ??If you have questions about your results, please contact your referring provider. Narrative 03/04/2023 9:55 AM CHIEF MEDICAL TECHNOLOGIST For Patients: As a result of the Cures Act, medical imaging exams and procedure reports are released immediately into your electronic medical record. You may view this report before your referring provider. If you have questions, please contact your health care provider. XR MAMMO BERNADETTE BILAT SCREEN [[id number]] CLINICAL HISTORY: ??This is an asymptomatic 73 y.o. patient. INDICATION FOR EXAM: Mammogram Screening. TECHNIQUE: CC & MLO views were obtained. ??This study was evaluated with the assistance of Computer-Aided Detection. Breast Tomosynthesis was used in interpretation. COMPARISON FILM: Yes 01/27/22 ? FINDINGS: ??The breasts have scattered areas of fibroglandular density. There are no dominant masses, suspicious micro calcifications or areas of architectural distortion. Glenn Francisco MD MAMMO * (ABNORMAL) LIPID PANEL W REFLEX MEASURED LDL (01/07/2018 8:35 AM CHIEF MEDICAL TECHNOLOGIST) CHOLESTEROL,TOTAL 174 100 - 199 mg/dL 01/07/2018 9:17 AM CHIEF MEDICAL TECHNOLOGIST [facility] TRIGLYCERIDES 246(H) <150 mg/dL 01/07/2018 9:17 AM CHIEF MEDICAL TECHNOLOGIST [facility] HDL CHOLESTEROL 65 >40 mg/dL 8 9:17 AM CHIEF MEDICAL TECHNOLOGIST [facility] NON-HDL CHOLESTEROL 109 <145 mg/dl 01/07/2018 9:17 AM CHIEF MEDICAL TECHNOLOGIST [facility] CHOL/HDL RATIO 2.68 <4.50 01/07/2018 9:17 AM CHIEF MEDICAL TECHNOLOGIST [facility] LDL CHOLESTEROL 60 <=130 mg/dL 01/07/2018 9:17 AM CHIEF MEDICAL TECHNOLOGIST [facility] PROVIDER ORDERED STATUS RANDOM 01/07/2018 9:17 AM CHIEF MEDICAL TECHNOLOGIST [facility] Blood BLOOD SPECIMEN / Unknown Venipuncture / Unknown 01/07/2018 8:35 AM CHIEF MEDICAL TECHNOLOGIST 01/07/2018 8:35 AM CHIEF MEDICAL TECHNOLOGIST Glenn Francisco MD CHEMISTRY Performing Organization Address [facility] Co de Phone Number [facility] [address] [place] [address] * SCAN-BONE DENSITOMETRY DEXA (06/30/2016 12:00 AM CDT) Anatomical Region Laterality Modality Other Scanner OTHER * ANTI HCV (08/17/2014 11:11 AM CDT) HEPATITIS C ANTIBODY Non-Reacti ve Non-Reacti ve 08/17/2014 8:27 PM CDT [facility] Blood specimen (specimen) BLOOD SPECIMEN / Unknown Venipuncture / Unknown 08/17/2014 11:11 AM CDT 08/17/2014 11:11 AM CDT Narrative [facility] - 08/17/2014 8:27 PM CDT Antibodies to HCV not detected; does not exclude the possibility of exposure to HCV. Glenn Francisco MD SEND OUTS [facility] [address] [place] [address], * COLONOSCOPY SCREENING (01/09/2012) Glenn Francisco MD GI PROCEDURE ORD from Last 3 Months or Most Recently Relevant to Health Maintenance Advance Directives Documents on File Type Date Recorded Patient Manager Validation Expl anation Healthcare Directive 03/09/2020 021 * Full Code (Latest Code Status on File) Date Activated Date Inactivated Comments 03/22/2020 4:30 PM 03/26/2020 1:09 PM Question Answer Comments Code Status Discussion: Per Existing Order * Full Code Date Activated Date Inactivated Comments 09/07/2015 6:50 AM 09/08/2015 3:55 PM * Full Code Date Activated Date Inactivated Comments 04/21/2014 7:42 AM 04/21/2014 12:02 PM Care Teams Docketing Specialist Relationship Specialty Start Date End Date Glenn Francisco MD [address] [place] [address] PCP - General Family Practice 07/07/18
--- OUTSIDE RECORDS SUMMARY | 2023-09-14 11:27 | XMS_ITS | Continuity of Care Document ---
Author Organization [facility] Address [address] [place] [address] Phone Care Team Providers Care Plastic And Reconstructive Surgeon Name Role Phone Kb SRIVASTAVA, Mario Unavailable Unavailable Allergies, Adverse Reactions, Alerts Substance Reaction Status Criticality POLYMYXIN B SULFATE Active No Infor mation neomycin Active No Information dexamethasone Active No Information Medications Medication Instructions Dosage Effective Dates (start - stop) Status Comments sulfasalazine 500 mg tablet take 1 Tablet by oral route every day after meals 500 MG - Active Dose decrease. Xeljanz 5 mg tablet Take 1 tablet by mouth twice a day - Active 1 month supply only-will fill 3 month supply at upcoming appt REPATHA SURECLICK (unknown strength) inject 1 milliliter by subcutaneous route every 2 weeks in the abdomen, thigh, or outer area of upper arm (rotate sites) Not Available - Active CO Q-10 (unknown strength) take 1 Capsule by Oral route every day Not Available - Active glimepiride 1 mg tablet take 1 tablet by oral route every day 1 MG - Active VITAMIN B-12 (unknown strength) take 1 Tablet by Oral route every day Not Available - Active aspirin 81 mg tablet,delayed release take 1 tablet by oral route every day 81 MG - Active BUTALBITAL-ASPIRIN -CAFFEINE (unknown strength) as needed Not Available - Active ketoconazole 2 % topical cream apply by topical route 2 times every day to the affected area(s) 0.00 - Active levothyroxine 88 mcg tablet take 1 tablet by oral route every day 88 MCG - Active Trulicity 0.75 mg/0.5 mL subcutaneous pen injector inject (0.75MG) by subcutaneous route every week 0.75 MG - Active TheraCal D4000 250 mg calcium-1,000 unit tablet 2 tabs twice a day - Active lisinopril 30 mg tablet take 1 tablet by oral route every day 30 MG - Active Flonase Allergy Relief 50 mcg/actuation nasal spray,suspension inhale 1 - 2 spray by intranasal route every day in each nostril 50 MCG - Active Nitrostat 0.[address] 1 tablet by sublingual route at the 1st sign of attack; may repeat every 5 min until relief; if pain persists after 3 tablets in 15 min, prompt medical attention is recommended 0.4 MG - Active Zyrtec 10 mg tablet take 1 Tablet by oral route every day 10 MG - Active Xeljanz 5 mg tablet Take 1 tablet by mouth twice a day - No Longer Active 1 month supply only-will fill 3 month supply at upcoming appt sulfasalazine 500 mg tablet take 1 Tablet by oral route every day after meals 500 MG - No Longer Active Dose decrease. MILK THISTLE (unknown strength) Not Available - No Longer Active gabapentin 300 mg capsule take 1 capsule by oral route every evening - No Longer Active Procedures Procedure Date Office/Outpatient Visit, Est Routine Venipuncture Rbc Sed Rate, Automated Assay Of Serum Albumin Assay Of Creatinine Transferase (Ast) (Sgot) Alanine Amino (Alt) (Sgpt) Assay Of Ck (Cpk) CReactive Protein Complete Cbc WAuto Diff Wbc Office/Outpatient Visit, Est Routine Venipuncture Rbc Sed Rate, Automated Assay Of Serum Albumin Assay Of Creatinine Transferase (Ast) (Sgot) Alanine Amino (Alt) (Sgpt) Assay Of Ck (Cpk) CReactive Protein Complete Cbc, Automated Office/Outpatient Visit, Est Routine Venipuncture Rbc Sed Rate, Automated Assay Of Serum Albumin Assay Of Creatinine Transferase (Ast) (Sgot) Alanine Amino (Alt) (Sgpt) Assay Of Ck (Cpk) CReactive Protein Complete Cbc, Automated Office/Outpatient Visit, Est Routine Venipuncture Rbc Sed Rate, Automated Assay Of Serum Albumin Assay Of Creatinine Transferase (Ast) (Sgot) Alanine Amino (Alt) (Sgpt) Assay Of Ck (Cpk) CReactive Protein Complete Cbc, Automated Office/Outpatient Visit, Est Routine Venipuncture Specimen Handling Rbc Sed Rate, Nonautomated Assay Of Ck (Cpk) CReactive Protein Tb Test, Cell Immun Measure Office/Outpatient Visit, Est Office/Outpatient Visit, Est Routine Venipuncture Rbc Sed Rate, Nonautomated Assay Of Serum Albumin Assay Of Creatinine Transferase (Ast) (Sgot) Alanine Amino (Alt) (Sgpt) Assay Of Ck (Cpk) CReactive Protein Complete Cbc, Automated Office/Outpatient Visit, Est Routine Venipuncture Rbc Sed Rate, Nonautomated Assay Of Serum Albumin Assay Of Creatinine Transferase (Ast) (Sgot) Alanine Amino (Alt) (Sgpt) Assay Of Ck (Cpk) CReactive Protein Complete Cbc, Automated Office/Outpatient Visit, Est Routine Venipuncture Rbc Sed Rate, Nonautomated Assay Of Serum Albumin Assay Of Creatinine Transferase (Ast) (Sgot) Alanine Amino (Alt) (Sgpt) Assay Of Ck (Cpk) CReactive Protein Complete Cbc, Automated Office/Outpatient Visit, Est Routine Venipuncture Rbc Sed Rate, Nonautomated Assay Of Serum Albumin Assay Of Creatinine Transferase (Ast) (Sgot) Alanine Amino (Alt) (Sgpt) Assay Of Ck (Cpk) CReactive Protein Complete Cbc, Automated Office/Outpatient Visit, Est Routine Venipuncture Rbc Sed Rate, Nonautomated Assay Of Serum Albumin Assay Of Creatinine Transferase (Ast) (Sgot) Alanine Amino (Alt) (Sgpt) Assay Of Ck (Cpk) CReactive Protein Complete Cbc, Automated Office/Outpatient Visit, Est Routine Venipuncture Rbc Sed Rate, Nonautomated Assay Of Serum Albumin Assay Of Creatinine Transferase (Ast) (Sgot) Alanine Amino (Alt) (Sgpt) Assay Of Ck (Cpk) CReactive Protein Complete Cbc WAuto Diff Wbc Office/Outpatient Visit, Est Routine Venipuncture Rbc Sed Rate, Nonautomated Assay Of Serum Albumin Assay Of Creatinine Transferase (Ast) (Sgot) Alanine Amino (Alt) (Sgpt) Assay Of Ck (Cpk) CReactive Protein Complete Cbc, Automated Office/Outpatient Visit, Est Routine Venipuncture Rbc Sed Rate, Nonautomated Assay Of Serum Albumin Assay Of Creatinine Transferase (Ast) (Sgot) Alanine Amino (Alt) (Sgpt) Assay Of Ck (Cpk) CReactive Protein Complete Cbc, Automated Office/Outpatient Visit, Est Routine Venipuncture Assay Of Serum Albumin Assay Of Creatinine Transferase (Ast) (Sgot) Alanine Amino (Alt) (Sgpt) Assay Of Ck (Cpk) Complete Cbc, Automated Office/Outpatient Visit, Est Routine Venipuncture Rbc Sed Rate, Nonautomated Assay Of Serum Albumin Assay Of Creatinine Transferase (Ast) (Sgot) Alanine Amino (Alt) (Sgpt) Assay Of Ck (Cpk) CReactive Protein Complete Cbc, Automated Office/Outpatient Visit, Est Routine Venipuncture Specimen Handling Rbc Sed Rate, Nonautomated Assay Of Serum Albumin Assay Of Creatinine Transferase (Ast) (Sgot) Alanine Amino (Alt) (Sgpt) CReactive Protein Tb Test, Cell Immun Measure Complete Cbc, Automated Office/Outpatient Visit, Est Routine Venipuncture Rbc Sed Rate, Nonautomated Assay Of Serum Albumin Assay Of Creatinine Transferase (Ast) (Sgot) Alanine Amino (Alt) (Sgpt) Assay Of Ck (Cpk) CReactive Protein Complete Cbc, Automated Office/Outpatient Visit, Est Routine Venipuncture Rbc Sed Rate, Nonautomated Assay Of Serum Albumin Assay Of Creatinine Transferase (Ast) (Sgot) Alanine Amino (Alt) (Sgpt) Assay Of Ck (Cpk) CReactive Protein Complete Cbc, Automated Office/Outpatient Visit, Est Routine Venipuncture Rbc Sed Rate, Nonautomated Assay Of Serum Albumin Assay Of Creatinine Transferase (Ast) (Sgot) Alanine Amino (Alt) (Sgpt) Assay Of Ck (Cpk) CReactive Protein Complete Cbc, Automated Office/Outpatient Visit, Est Routine Venipuncture Assay Of Serum Albumin Assay Of Creatinine Transferase (Ast) (Sgot) Alanine Amino (Alt) (Sgpt) Assay Of Ck (Cpk) Complete Cbc, Automated Vitamin D 25 Hydroxy Office/Outpatient Visit, Est Routine Venipuncture Rbc Sed Rate, Nonautomated Assay Of Serum Albumin Assay Of Creatinine Transferase (Ast) (Sgot) Alanine Amino (Alt) (Sgpt) Assay Of Ck (Cpk) CReactive Protein Complete Cbc, Automated Office/Outpatient Visit, Est Routine Venipuncture Rbc Sed Rate, Nonautomated Assay Of Serum Albumin Assay Of Creatinine Transferase (Ast) (Sgot) Alanine Amino (Alt) (Sgpt) Assay Of Ck (Cpk) CReactive Protein Complete Cbc, Automated Office/Outpatient Visit, Est Routine Venipuncture Rbc Sed Rate, Nonautomated Assay Of Serum Albumin Assay Of Creatinine Transferase (Ast) (Sgot) Alanine Amino (Alt) (Sgpt) Assay Of Ck (Cpk) CReactive Protein Complete Cbc, Automated Dxa Bone Density, Axial Office/Outpatient Visit, Est Routine Venipuncture Rbc Sed Rate, Nonautomated Assay Of Serum Albumin Assay Of Creatinine Transferase (Ast) (Sgot) Alanine Amino (Alt) (Sgpt) Assay Of Ck (Cpk) CReactive Protein Complete Cbc, Automated Office/Outpatient Visit, Est Routine Venipuncture Rbc Sed Rate, Nonautomated Assay Of Serum Albumin Assay Of Creatinine Transferase (Ast) (Sgot) Alanine Amino (Alt) (Sgpt) Assay Of Ck (Cpk) CReactive Protein Complete Cbc, Automated Office/Outpatient Visit, Est Routine Venipuncture Complete Cbc WAuto Diff Wbc Rbc Sed Rate, Nonautomated Assay Of Serum Albumin Assay Of Creatinine Transferase (Ast) (Sgot) Alanine Amino (Alt) (Sgpt) Assay Of Ck (Cpk) CReactive Protein Office/Outpatient Visit, Est Routine Venipuncture Complete Cbc WAuto Diff Wbc Rbc Sed Rate, Nonautomated Assay Of Serum Albumin Assay Of Creatinine Transferase (Ast) (Sgot) Alanine Amino (Alt) (Sgpt) Assay Of Ck (Cpk) CReactive Protein Office/Outpatient Visit, Est Routine Venipuncture Specimen Handling Complete Cbc WAuto Diff Wbc Rbc Sed Rate, Nonautomated Assay Of Serum Albumin Assay Of Creatinine Transferase (Ast) (Sgot) Alanine Amino (Alt) (Sgpt) Assay Of Ck (Cpk) CReactive Protein Rituxan Rituximab Chemo, Iv Infusion, 1 Hr Chemo, Iv Infusion, Addl Hr Normal Saline Solution Infus Solumedrol Up To 125mg Tx/Proph/Dg Addl Seq Iv Inf Rituxan Rituximab Chemo, Iv Infusion, 1 Hr Chemo, Iv Infusion, Addl Hr Normal Saline Solution Infus Solumedrol Up To 125mg Tx/Proph/Dg Addl Seq Iv Inf Office/Outpatient Visit, Est Routine Venipuncture Complete Cbc WAuto Diff Wbc Assay Of Ck (Cpk) Assay Of Serum Albumin Assay Of Creatinine Transferase (Ast) (Sgot) Alanine Amino (Alt) (Sgpt) Office/Outpatient Visit, Est Routine Venipuncture Specimen Handling Complete Cbc WAuto Diff Wbc Rbc Sed Rate, Nonautomated Assay Of Serum Albumin Assay Of Creatinine Transferase (Ast) (Sgot) Alanine Amino (Alt) (Sgpt) Assay Of Ck (Cpk) CReactive Protein Rituxan Rituximab Chemo, Iv Infusion, 1 Hr Chemo, Iv Infusion, Addl Hr Normal Saline Solution Infus Solumedrol Up To 125mg Tx/Proph/Dg Addl Seq Iv Inf Rituxan Rituximab Chemo, Iv Infusion, 1 Hr Chemo, Iv Infusion, Addl Hr Normal Saline Solution Infus Solumedrol Up To 125mg Tx/Proph/Dg Addl Seq Iv Inf Office/Outpatient Visit, Est Routine Venipuncture Specimen Handling Complete Cbc WAuto Diff Wbc Rbc Sed Rate, Nonautomated Assay Of Serum Albumin Assay Of Creatinine Transferase (Ast) (Sgot) Alanine Amino (Alt) (Sgpt) Assay Of Ck (Cpk) CReactive Protein Remicade Infliximab Chemo, Iv Infusion, 1 Hr Chemo, Iv Infusion, Addl Hr Normal Saline Solution Infus Office/Outpatient Visit, Est Routine Venipuncture Complete Cbc WAuto Diff Wbc Assay Of Ck (Cpk) CReactive Protein Assay Of Serum Albumin Assay Of Creatinine Transferase (Ast) (Sgot) Alanine Amino (Alt) (Sgpt) Remicade Infliximab Chemo, Iv Infusion, 1 Hr Chemo, Iv Infusion, Addl Hr Normal Saline Solution Infus Remicade Infliximab Chemo, Iv Infusion, 1 Hr Chemo, Iv Infusion, Addl Hr Normal Saline Solution Infus Office/Outpatient Visit, Est Routine Venipuncture Specimen Handling Complete Cbc WAuto Diff Wbc Assay Of Ck (Cpk) Assay Of Serum Albumin Assay Of Creatinine Transferase (Ast) (Sgot) Alanine Amino (Alt) (Sgpt) Remicade Infliximab Chemo, Iv Infusion, 1 Hr Chemo, Iv Infusion, Addl Hr Normal Saline Solution Infus Office/Outpatient Visit, Est Routine Venipuncture Specimen Handling Complete Cbc WAuto Diff Wbc Assay Of Ck (Cpk) CReactive Protein Assay Of Serum Albumin Assay Of Creatinine Transferase (Ast) (Sgot) Alanine Amino (Alt) (Sgpt) Remicade Infliximab Chemo, Iv Infusion, 1 Hr Chemo, Iv Infusion, Addl Hr Normal Saline Solution Infus Remicade Infliximab Chemo, Iv Infusion, 1 Hr Chemo, Iv Infusion, Addl Hr Normal Saline Solution Infus Office/Outpatient Visit, Est Routine Venipuncture Specimen Handling Complete Cbc WAuto Diff Wbc Assay Of Ck (Cpk) CReactive Protein Assay Of Serum Albumin Assay Of Creatinine Transferase (Ast) (Sgot) Alanine Amino (Alt) (Sgpt) Dxa Bone Density, Axial Remicade Infliximab Chemo, Iv Infusion, 1 Hr Chemo, Iv Infusion, Addl Hr Normal Saline Solution Infus Office/Outpatient Visit, Est Routine Venipuncture Complete Cbc WAuto Diff Wbc Assay Of Ck (Cpk) CReactive Protein Assay Of Serum Albumin Assay Of Creatinine Transferase (Ast) (Sgot) Alanine Amino (Alt) (Sgpt) Remicade Infliximab Chemo, Iv Infusion, 1 Hr Chemo, Iv Infusion, Addl Hr Normal Saline Solution Infus Remicade Infliximab Chemo, Iv Infusion, 1 Hr Chemo, Iv Infusion, Addl Hr Normal Saline Solution Infus Office/Outpatient Visit, Est Routine Venipuncture Complete Cbc WAuto Diff Wbc Transferase Ast Sgot Assay Of Ck (Cpk) CReactive Protein Remicade Infliximab Chemo, Iv Infusion, 1 Hr Chemo, Iv Infusion, Addl Hr Normal Saline Solution Infus Remicade Infliximab Chemo, Iv Infusion, 1 Hr Chemo, Iv Infusion, Addl Hr Normal Saline Solution Infus Office/Outpatient Visit, Est Routine Venipuncture CReactive Protein Complete Cbc WAuto Diff Wbc Assay Of Serum Albumin Assay Of Creatinine Transferase Ast Sgot Alanine Amino Alt Sgpt Remicade Infliximab Chemo, Iv Infusion, 1 Hr Chemo, Iv Infusion, Addl Hr Normal Saline Solution Infus Remicade Infliximab Chemo, Iv Infusion, 1 Hr Chemo, Iv Infusion, Addl Hr Normal Saline Solution Infus Office/Outpatient Visit, Est Routine Venipuncture CReactive Protein Complete Cbc WAuto Diff Wbc Assay Of Ck (Cpk) Assay Of Serum Albumin Assay Of Creatinine Transferase Ast Sgot Alanine Amino Alt Sgpt Remicade Infliximab Chemo, Iv Infusion, 1 Hr Chemo, Iv Infusion, Addl Hr Normal Saline Solution Infus Routine Venipuncture Assay Of Ck (Cpk) Assay Of Serum Albumin Assay Of Creatinine Transferase Ast Sgot Alanine Amino Alt Sgpt Remicade Infliximab Chemo, Iv Infusion, 1 Hr Chemo, Iv Infusion, Addl Hr Normal Saline Solution Infus Office/Outpatient Visit, Est Routine Venipuncture Complete Cbc WAuto Diff Wbc Assay Of Ck (Cpk) Rbc Sed Rate, Nonautomated Assay Of Serum Albumin Assay Of Creatinine Transferase Ast Sgot Alanine Amino Alt Sgpt Remicade Infliximab Chemo, Iv Infusion, 1 Hr Chemo, Iv Infusion, Addl Hr Normal Saline Solution Infus Remicade Infliximab Chemo, Iv Infusion, 1 Hr Chemo, Iv Infusion, Addl Hr Normal Saline Solution Infus Office/Outpatient Visit, Est Routine Venipuncture CReactive Protein Complete Cbc WAuto Diff Wbc Assay Of Ck (Cpk) Assay Of Serum Albumin Assay Of Creatinine Transferase Ast Sgot Alanine Amino Alt Sgpt Results Test Name Date and Time Measure Units Reference Range Abnormal Flag Status Comments Panel Description: CBC 5 part diff Final Neutrophils# 4 10:37:00 2.24 K/uL 2.00-7.50 Final Neutrophil % 4 10:37:00 42.20 % 0.00-99.00 Final Eosinophil # 4 10:37:00 0.09 K/uL 0.00-0.50 Final Eosinophil % 4 10:37:00 1.60 % 0.00-7.00 Final Basophil # 4 10:37:00 0.03 K/uL 0.00-0.20 Final Basophil % 4 10:37:00 0.60 % 0.00-99.00 Final WBC 4 10:37:00 5.3 K/uL 4.0-10.0 Final RBC 4 10:37:00 4.53 M/uL 3.80-5.80 Final Hemoglobin 4 10:37:00 13.7 g/dL 11.5-16.0 Final Hematocrit 4 10:37:00 41.7 % 37.0-47.0 Final MCV 4 10:37:00 92 fL 80-100 Final MCH 4 10:37:00 30.3 pg 27.0-32.0 Final MCHC 4 10:37:00 32.9 g/dL 32.0-36.0 Final RDW 4 10:37:00 11.9 % 11.0-16.0 Final Platelet Count 4 10:37:00 196 K/uL 150-500 Final MPV 4 10:37:00 7.3 fL 6.0-11.0 Final Lymphocyte% 4 10:37:00 46.00 % 25.00-50.00 Final Lymphocyte # 4 10:37:00 2.5 K/uL 1.0-4.0 Final Monocytes # 4 10:37:00 0.51 K/uL 0.20-1.00 Final Monocytes % 4 10:37:00 9.60 % 2.00-10.00 Final Panel Description: ESR Final ESR 4 10:38:00 4 mm/hr 0-25 Final Panel Description: DMARD Final AST 4 11:11:00 76 U/L 5-34 H Final ALT 4 11:11:00 60 IU/L 5-35 H Final Creatinine 4 11:11:00 1.040 mg/dL 0.500-1.300 Final ALB 4 11:11:00 4.3 g/dL 3.5-5.3 Final GFR 4 11:11:00 55.5 mL/min/1.7 3 m2 Final Panel Description: CPK Final CK 4 11:11:00 441 U/L 26-140 H Final Panel Description: CRP Final CRP 4 11:11:00 0.09 MG/DL 0.00-0.60 Final Advance Directives Directive Yes / No Effective Date File Name No Information Encounters Encounter Description Practice Location Reason(s) For Visit Diagnoses Date Provider Providers Copied on Encounter Office/Outpa tient Visit, Est [facility] , [address], [place], [address], [place] tel:[phone] [facility] , Rheumatoid arthritis (chief complaint) CounselingHi gh risk medication monitoringVi tamin D deficiencySe ropositive RAMyositisOs teopeniaFatt y (change of) liver, not elsewhere classifiedPa in 4 Kb Martin. [facility] [address], [place], [address], [place]. tel:[phone] Referring Provider: Mario Leary, [facility] [address], [place], [address]. tel:[phone] [facility] , [address], [place], [address], [place] tel:[phone] [facility] , No Information 4 Kb Martin. [facility] [address], [place], [address], [place]. tel:[phone] Office/Outpa tient Visit, Est [facility] , [address], [place], [address], [place] tel:[phone] [facility] , Rheumatoid arthritis (chief complaint) CounselingHi gh risk medication monitoringVi tamin D deficiencySe ropositive RAMyositisOs teopeniaFatt y (change of) liver, not elsewhere classified 3 Kb Martin. [facility] [address], [place], [address], [place]. tel:[phone] Referring Provider: Mario Leary, [facility] [address], [place], [address]. tel:[phone] Office/Outpa tient Visit, Est [facility] , [address], [place], [address], [place] tel:[phone] [facility] , Rheumatoid arthritis (chief complaint) CounselingHi gh risk medication monitoringVi tamin D deficiencySe ropositive RAMyositisOs teopeniaFatt y (change of) liver, not elsewhere classified 3 Kb Martin. [facility] [address], [place], [address], [place]. tel:[phone] Referring Provider: Mario Leary, [facility] [address], [place], [address]. tel:[phone] Office/Outpa tient Visit, Est [facility] , [address], [place], [address], [place] tel:[phone] [facility] , Rheumatoid arthritis (chief complaint) CounselingHi gh risk medication monitoringVi tamin D deficiencySe ropositive RAMyositisOs teopeniaFatt y (change of) liver, not elsewhere classified 3 Kb Martin. [facility] [address], [place], [address], [place]. tel:[phone] Referring Provider: Mario Leary, [facility] [address], [place], [address]. tel:[phone] Office/Outpa tient Visit, Est [facility] , [address], [place], [address], [place] tel:[phone] [facility] , Rheumatoid arthritis (chief complaint) Vitamin D deficiencySe ropositive RAMyositisOs teopeniaCoun selingHigh risk medication monitoringFa tty (change of) liver, not elsewhere classified 3 Kb Martin. [facility] [address], [place], [address], [place]. tel:[phone] Referring Provider: Mario Leary, [facility] [address], [place], [address]. tel:[phone] Office/Outpa tient Visit, Est [facility] , [address], [place], [address], [place] tel:[phone] [facility] , Rheumatoid arthritis (chief complaint) Vitamin D deficiencySe ropositive RAMyositisOs teopeniaCoun selingHigh risk medication monitoringFa tty (change of) liver, not elsewhere classifiedOt her low back pain 2 Kb Martin. [facility] [address], [place], [address], [place]. tel:[phone] Referring Provider: Mario Leary [facility] [address], [place], [address]. tel:[phone] Office/Outpa tient Visit, Est [facility] , [address], [place], [address], [place] tel:[phone] [facility] , Rheumatoid arthritis (chief complaint) Vitamin D deficiencySe ropositive RAMyositisOs teopeniaCoun selingHigh risk medication monitoringFa tty (change of) liver, not elsewhere classified 2 Kb Martin. [facility] [address], [place], [address], [place]. tel:[phone] Referring Provider: Mario Leary, [facility] [address], [place], [address]. tel:[phone] Office/Outpa tient Visit, Est [facility] , [address], [place], [address], [place] tel:[phone] [facility] , Rheumatoid arthritis (chief complaint) Vitamin D deficiencySe ropositive RAMyositisOs teopeniaElev ated liver enzymesCouns elingHigh risk medication monitoring 2 Kb Martin. [facility] [address], [place], [address], [place]. tel:[phone] Referring Provider: Mario Leary, [facility] [address], [place], [address]. tel:[phone] Office/Outpa tient Visit, Est [facility] , [address], [place], [address], [place] tel:[phone] [facility] , Rheumatoid arthritis (chief complaint) Vitamin D deficiencySe ropositive RAOA of 1st [facility] jointMyositi sOsteopeniaE levated liver enzymesCouns elingHigh risk medication monitoring 1 Kb Martin. [facility] [address], [place], [address], [place]. tel:[phone] Referring Provider: Mario Leary, [facility] [address], [place], [address]. tel:[phone] Office/Outpa tient Visit, Est [facility] , [address], [place], [address], [place] tel:[phone] [facility] , Rheumatoid arthritis (chief complaint) Vitamin D deficiencySe ropositive RAOA of 1st [facility] jointMyositi sOsteopeniaE levated liver enzymesHigh risk medication monitoringCo unseling Aug- 1 Kb Martin. [facility] [address], [place], [address], [place]. tel:[phone] Referring Provider: Mario Leary, [facility] [address], [place], [address]. tel:[phone] Office/Outpa tient Visit, Est [facility] , [address], [place], [address], [place] tel:[phone] [facility] , Rheumatoid arthritis (chief complaint) Vitamin D deficiencySe ropositive RAOA of 1st [facility] jointMyositi sOsteopeniaE levated liver enzymesHigh risk medication monitoringCo unseling 1 Kb Martin. [facility] [address], [place], [address], [place]. tel:[phone] Referring Provider: Mario Leary, [facility] [address], [place], [address]. tel:[phone] Office/Outpa tient Visit, Est [facility] , [address], [place], [address], [place] tel:[phone] [facility] , Rheumatoid arthritis (chief complaint) Vitamin D deficiencySe ropositive RAOA of 1st [facility] jointMyositi sOsteopeniaE levated liver enzymesHigh risk medication monitoringCo unselingBack pain 0 Kb Martin. [facility] [address], [place], [address], [place]. tel:[phone] Referring Provider: Mario Leary [facility] [address], [place], [address]. tel:[phone] Office/Outpa tient Visit, Est [facility] , [address], [place], [address], [place] tel:[phone] [facility] , Rheumatoid arthritis (chief complaint) Vitamin D deficiencySe ropositive RABilateral knee OAOA of 1st [facility] jointMyositi sOsteopeniaE levated liver enzymesHigh risk medication monitoring Aug-0 0 Kb Martin. [facility] [address], [place], [address], [place]. tel:[phone] Referring Provider: Mario Leary, [facility] [address], [place], [address]. tel:[phone] Office/Outpa tient Visit, Est [facility] , [address], [place], [address], [place] tel:[phone] [facility] , Rheumatoid arthritis (chief complaint) Vitamin D deficiencySe ropositive RABilateral knee OAOA of 1st [facility] jointMyositi sOsteopeniaE levated liver enzymesHigh risk medication monitoringPl jorge fasciitis Apr-0 0 Kb Martin. [facility] [address], [place], [address], [place]. tel:[phone] Referring Provider: Mario Leary, [facility] [address], [place], [address]. tel:[phone] Office/Outpa tient Visit, Est [facility] , [address], [place], [address], [place] tel:[phone] [facility] , Rheumatoid arthritis (chief complaint) OsteopeniaEl evated liver enzymesHigh risk medication monitoringOA of 1st [facility] jointVitamin D deficiencySe ropositive RABilateral knee OAMyositis Jan- 9 Kb Martin. [facility] [address], [place], [address], [place]. tel:[phone] Referring Provider: Mario Leary, [facility] [address], [place], [address]. tel:[phone] Office/Outpa tient Visit, Est [facility] , [address], [place], [address], [place] tel:[phone] [facility] , Rheumatoid arthritis (chief complaint) Vitamin D deficiencySe ropositive RABilateral knee OAMyositisOs teopeniaElev ated liver enzymesHigh risk medication monitoringOA of 1st [facility] joint 9 Kb Martin. [facility] [address], [place], [address], [place]. tel:[phone] Referring Provider: Mario Leary, [facility] [address], [place], [address]. tel:[phone] Office/Outpa tient Visit, Est [facility] , [address], [place], [address], [place] tel:[phone] [facility] , Rheumatoid arthritis (chief complaint) Vitamin D deficiencySe ropositive RABilateral knee OAMyositisOs teopeniaElev ated liver enzymesHigh risk medication monitoring May- 9 Kb Martin. [facility] [address], [place], [address], [place]. tel:[phone] Referring Provider: Mario Leary, [facility] [address], [place], [address]. tel:[phone] Office/Outpa tient Visit, Est [facility] , [address], [place], [address], [place] tel:[phone] [facility] , Rheumatoid arthritis (chief complaint) Vitamin D deficiencySe ropositive RABilateral knee OAMyositisOs teopeniaElev ated liver enzymesHigh risk medication monitoringFa tigueLateral epicondyliti s, unspecified elbow 8 [facility] Mario. [facility] [address], [place], [address], [place]. tel:[phone] Referring Provider: Mario Leary, [facility] [address], [place], [address]. [phone] Office/Outpa tient Visit, Est [facility] , [address], [place], [address], [place] tel:[phone] [facility] , Rheumatoid arthritis (chief complaint) Vitamin D deficiencySe ropositive RABilateral knee OAMyositisOs teopeniaHigh risk medication monitoringEl evated liver enzymes 8 Kb Martin. [facility] [address], [place], [address], [place]. tel:[phone] Referring Provider: Mario Leary, [facility] [address], [place], [address]. [phone] Office/Outpa tient Visit, Est [facility] , [address], [place], [address], [place] tel:[phone] [facility] , Rheumatoid arthritis (chief complaint) Seropositive RABilateral knee OAMyositisOs teopeniaHigh risk medication monitoringVi tamin D deficiency 8 Kbovidio Martin. [facility] [address], [place], [address], [place]. tel:[phone] Referring Provider: Mario Leary, [facility] [address], [place], [address]. tel:[phone] Office/Outpa tient Visit, Est [facility] , [address], [place], [address], [place] tel:[phone] [facility] , Rheumatoid arthritis (chief complaint) Seropositive RABilateral knee OAMyositisOs teopeniaHigh risk medication monitoring Kbovidio Martin. [facility] [address], [place], [address], [place]. tel:[phone] Referring Provider: Mario Leary, [facility] [address], [place], [address]. tel:[phone] Office/Outpa tient Visit, Est [facility] , [address], [place], [address], [place] tel:[phone] [facility] , Rheumatoid arthritis (chief complaint) Seropositive RABilateral knee OAMyositisOs teopeniaHigh risk medication monitoring Kbovidio Martin. [facility] [address], [place], [address], [place]. tel:[phone] Referring Provider: Mario Leary, [facility] [address], [place], [address]. tel:[phone] Office/Outpa tient Visit, Est [facility] , [address], [place], [address], [place] tel:[phone] [facility] , Rheumatoid arthritis (chief complaint) Seropositive RABilateral knee OAMyositisOs teopeniaHigh risk medication monitoring Kb Martin. [facility] [address], [place], [address], [place]. tel:[phone] Referring Provider: Mario Leary, [facility] [address], [place], [address]. tel:[phone] Office/Outpa tient Visit, Est [facility] , [address], [place], [address], [place] tel:[phone] [facility] , Rheumatoid arthritis (chief complaint) Seropositive RABilateral knee OAMyositisOs teopeniaHigh risk medication monitoring Kb Martin. [facility] [address], [place], [address], [place]. tel:[phone] Referring Provider: Mario Leary, [facility] [address], [place], [address]. tel:[phone] [facility] , [address], [place], [address], [place] tel:[phone] [facility] , Osteopenia Kb Martin. [facility] [address], [place], [address], [place]. tel:[phone] Referring Provider: Mario Leary, [facility] [address], [place], [address]. tel:[phone] Office/Outpa tient Visit, Est [facility] , [address], [place], [address], [place] tel:[phone] [facility] , Rheumatoid arthritis (chief complaint) Seropositive RABilateral knee OAMyositisOs teopeniaHigh risk medication monitoring 7 Kb Martin. [facility] [address], [place], [address], [place]. tel:[phone] Referring Provider: Mario Leary, [facility] [address], [place], [address]. tel:[phone] Office/Outpa tient Visit, Est [facility] , [address], [place], [address], [place] tel:[phone] [facility] , Rheumatoid arthritis (chief complaint) Seropositive RABilateral knee OAMyositisOs teopeniaHigh risk medication monitoring Kb Martin. [facility] [address], [place], [address], [place]. tel:[phone] Referring Provider: Mario Leary, [facility] [address], [place], [address]. tel:[phone] Office/Outpa tient Visit, Est [facility] , [address], [place], [address], [place] tel:[phone] [facility] , Rheumatoid arthritis (chief complaint) Seropositive RAOsteopenia MyositisHigh risk medication monitoringBi lateral knee OABursitis of unspecified shoulderTroc hanteric bursitis of left hip 6 Kb Martin. [facility] [address], [place], [address], [place]. tel:[phone] Referring Provider: Mario Leary, [facility] [address], [place], [address]. tel:[phone] Office/Outpa tient Visit, Est [facility] , [address], [place], [address], [place] tel:[phone] [facility] , Rheumatoid arthritis (chief complaint) Seropositive RAOsteopenia MyositisHigh risk medication monitoringBi lateral knee OA 6 [facility] Mario. [facility] [address], [place], [address], [place]. tel:[phone] Referring Provider: Mario Leary, [facility] [address], [place], [address]. tel:[phone] Office/Outpa tient Visit, Est [facility] , [address], [place], [address], [place] tel:[phone] [facility] , Rheumatoid arthritis (chief complaint) Seropositive RAOsteopenia MyositisHigh risk medication monitoringBi lateral knee OA 6 [facility] Mario. [facility] [address], [place], [address], [place]. tel:[phone] Referring Provider: Mario Leary, [facility] [address], [place], [address]. tel:[phone] [facility] , [address], [place], [address], [place] tel:[phone] [facility] , Seropositive RA 6 [facility] Mario. [facility] [address], [place], [address], [place]. tel:[phone] Referring Provider: Mario Leary, [facility] [address], [place], [address]. tel:[phone] [facility] , [address], [place], [address], [place] tel:[phone] [facility] , Seropositive RA [facility] Mario. [facility] [address], [place], [address], [place]. tel:[phone] Referring Provider: Mario Leary, [facility] [address], [place], [address]. tel:[phone] Office/Outpa tient Visit, Est [facility] , [address], [place], [address], [place] tel:[phone] [facility] , Rheumatoid arthritis (chief complaint) Seropositive RAOsteopenia MyositisHigh risk medication monitoringBi lateral knee OA [facility] Mario. [facility] [address], [place], [address], [place]. tel:[phone] Referring Provider: Mario Leary, [facility] [address], [place], [address]. tel:[phone] Office/Outpa tient Visit, Est [facility] , [address], [place], [address], [place] tel:[phone] [facility] , Rheumatoid arthritis (chief complaint) Rheumatoid ArthritisOst eoarthrosis, generalized, involving unspecified siteMyalgia and myositis, unspecifiedO steopeniaThe rapeutic Drug Monitoring Kb Mario. [facility] [address], [place], [address], [place]. tel:[phone] Referring Provider: Mario Leary, [facility] [address], [place], [address]. [phone] [facility] , [address], [place], [address], [place] tel:[phone] [facility] , Rheumatoid Arthritis Kb Mario. [facility] [address], [place], [address], [place]. tel:[phone] Referring Provider: Mario Leary, [facility] [address], [place], [address]. tel:[phone] [facility] , [address], [place], [address], [place] tel:[phone] [facility] , Rheumatoid Arthritis Diana Lopez. [facility] [address], [place], [address], [place]. tel:[phone] Referring Provider: John Gutierrez, [facility] [address], [place], [address]. tel:[phone] Office/Outpa tient Visit, Est [facility] , [address], [place], [address], [place] tel:[phone] [facility] , Rheumatoid arthritis (chief complaint) Rheumatoid ArthritisOst eoarthrosis, generalized, involving unspecified siteMyalgia and myositis, unspecifiedO steopeniaThe rapeutic Drug Monitoring [facility] Mario. [facility] [address], [place], [address], [place]. tel:[phone] Referring Provider: Mario Leary, [facility] [address], [place], [address]. tel:[phone] [facility] , [address], [place], [address], [place] tel:[phone] [facility] , Rheumatoid Arthritis [facility] Mario. [facility] [address], [place], [address], [place]. tel:[phone] Referring Provider: Mario Leary, [facility] [address], [place], [address]. tel:[phone] [facility] , [address], [place], [address], [place] tel:[phone] [facility] , Rheumatoid Arthritis [facility] Mario. [facility] [address], [place], [address], [place]. tel:[phone] Office/Outpa tient Visit, Est [facility] , [address], [place], [address], [place] tel:[phone] [facility] , Rheumatoid arthritis (chief complaint) Rheumatoid ArthritisOst eoarthrosis, generalized, involving unspecified siteOsteopen iaMyalgia and myositis, unspecifiedT herapeutic Drug Monitoring [facility] Mario. [facility] [address], [place], [address], [place]. tel:[phone] Referring Provider: Mario Leary, [facility] [address], [place], [address]. tel:[phone] [facility] , [address], [place], [address], [place] tel:[phone] [facility] , Rheumatoid Arthritis 0 5 Kb Martin. [facility] [address], [place], [address], [place]. tel:[phone] Referring Provider: Mario Leary, [facility] [address], [place], [address]. tel:[phone] [facility] , [address], [place], [address], [place] tel:[phone] [facility] , Rheumatoid Arthritis 4 Kb Martin. [facility] [address], [place], [address], [place]. tel:[phone] [facility] , [address], [place], [address], [place] tel:[phone] [facility] , Rheumatoid Arthritis 0 4 Kb Martin. [facility] [address], [place], [address], [place]. tel:[phone] Referring Provider: Mario Leary, [facility] [address], [place], [address]. tel:[phone] [facility] , [address], [place], [address], [place] tel:[phone] [facility] , Rheumatoid Arthritis 4 Kb Martin. [facility] [address], [place], [address], [place]. tel:[phone] Office/Outpa tient Visit, Est [facility] , [address], [place], [address], [place] tel:[phone] [facility] , Rheumatoid Arthritis (chief complaint) Rheumatoid ArthritisMya lgia and myositis, unspecifiedD isorder of bone and cartilage, unspecifiedT herapeutic Drug MonitoringAb normal Liver Enzymes 4 Kb Martin. [facility] [address], [place], [address], [place]. tel:[phone] Referring Provider: Mario Leary, [facility] [address], [place], [address]. tel:[phone] [facility] , [address], [place], [address], [place] tel:[phone] [facility] , Rheumatoid Arthritis Oct- 4 Kb Martin. [facility] [address], [place], [address], [place]. tel:[phone] Referring Provider: Mario Leary, [facility] [address], [place], [address]. tel:[phone] [facility] , [address], [place], [address], [place] tel:[phone] [facility] , Rheumatoid Arthritis 4 Kb Martin. [facility] [address], [place], [address], [place]. tel:[phone] Office/Outpa tient Visit, Est [facility] , [address], [place], [address], [place] tel:[phone] [facility] , Rheumatoid Arthritis (chief complaint) Rheumatoid ArthritisMya lgia and myositis, unspecifiedD isorder of bone and cartilage, unspecifiedA bnormal Liver EnzymesThera peutic Drug Monitoring 4 Kb Martin. [facility] [address], [place], [address], [place]. tel:[phone] Referring Provider: Mario Leary, [facility] [address], [place], [address]. tel:[phone] [facility] , [address], [place], [address], [place] tel:[phone] [facility] , Rheumatoid Arthritis 4 Kb Martin. [facility] [address], [place], [address], [place]. tel:[phone] Referring Provider: Mario Leary, [facility] [address], [place], [address]. [phone] [facility] , [address], [place], [address], [place] tel:[phone] [facility] , Rheumatoid Arthritis 4 Kb Martin. [facility] [address], [place], [address], [place]. tel:[phone] Referring Provider: Mario Leary, [facility] [address], [place], [address]. tel:[phone] [facility] , [address], [place], [address], [place] [phone] [facility] , Rheumatoid Arthritis Apr-3 4 Kbovidio Martin. [facility] [address], [place], [address], [place]. tel:[phone] Office/Outpa tient Visit, Est [facility] , [address], [place], [address], [place] tel:[phone] [facility] , Rheumatoid Arthritis (chief complaint) Rheumatoid ArthritisMya lgia and myositis, unspecifiedT herapeutic Drug MonitoringDi sorder of bone and cartilage, unspecifiedA bnormal Liver Enzymes May- 4 Kb Martin. [facility] [address], [place], [address], [place]. tel:[phone] Referring Provider: Mario Leary, [facility] [address], [place], [address]. tel:[phone] [facility] , [address], [place], [address], [place] tel:[phone] [facility] , No Information May- 4 Kb Martin. [facility] [address], [place], [address], [place]. tel:[phone] Referring Provider: Mario Leary, [facility] [address], [place], [address]. tel:[phone] [facility] , [address], [place], [address], [place] tel:[phone] [facility] , Rheumatoid Arthritis 4 Kb Martin. [facility] [address], [place], [address], [place]. tel:[phone] Referring Provider: Mario Leary, [facility] [address], [place], [address]. tel:[phone] [facility] , [address], [place], [address], [place] tel:[phone] [facility] , Rheumatoid Arthritis Apr- 4 Kb Martin. [facility] [address], [place], [address], [place]. tel:[phone] Office/Outpa tient Visit, Est [facility] , [address], [place], [address], [place] tel:[phone] [facility] , Rheumatoid Arthritis (chief complaint) Rheumatoid ArthritisUns pecified disorder of synovium, tendon, and bursaTherape [facility] Drug MonitoringOt her specified counselingMy algia and myositis, unspecified 4 Kb Martin. [facility] [address], [place], [address], [place]. tel:[phone] Referring Provider: Mario Leary, [facility] [address], [place], [address]. tel:[phone] [facility] , [address], [place], [address], [place] tel:[phone] [facility] , Rheumatoid Arthritis 4 Kbovidio Martin. [facility] [address], [place], [address], [place]. tel:[phone] Referring Provider: Mario Leary, [facility] [address], [place], [address]. tel:[phone] [facility] , [address], [place], [address], [place] tel:[phone] [facility] , Rheumatoid Arthritis 4 Kbovidio Martin. [facility] [address], [place], [address], [place]. tel:[phone] [facility] , [address], [place], [address], [place] tel:[phone] [facility] , Rheumatoid Arthritis 0 3 Kb Martin. [facility] [address], [place], [address], [place]. tel:[phone] Referring Provider: Mario Leary, [facility] [address], [place], [address]. tel:[phone] [facility] , [address], [place], [address], [place] tel:[phone] [facility] , Rheumatoid Arthritis 4201 3 Kbovidio Martin. [facility] [address], [place], [address], [place]. tel:[phone] Office/Outpa tient Visit, Est [facility] , [address], [place], [address], [place] tel:[phone] [facility] , Rheumatoid Arthritis (chief complaint) Rheumatoid ArthritisOth er specified counselingTh erapeutic Drug MonitoringMy algia and myositis, unspecified 3 Kb Martin. [facility] [address], [place], [address], [place]. tel:[phone] Referring Provider: Mario Leary, [facility] [address], [place], [address]. tel:[phone] [facility] , [address], [place], [address], [place] tel:[phone] [facility] , Rheumatoid Arthritis 3 Kb Martin. [facility] [address], [place], [address], [place]. tel:[phone] Referring Provider: Mario Leary, [facility] [address], [place], [address]. tel:[phone] [facility] , [address], [place], [address], [place] tel:[phone] [facility] , Rheumatoid Arthritis 3 Kb Martin. [facility] [address], [place], [address], [place]. tel:[phone] [facility] , [address], [place], [address], [place] tel:[phone] [facility] , Rheumatoid Arthritis Kb Martin. [facility] [address], [place], [address], [place]. tel:[phone] [facility] , [address], [place], [address], [place] tel:[phone] [facility] , Rheumatoid Arthritis denisa Martin. [facility] [address], [place], [address], [place]. tel:[phone] Referring Provider: Mario Leary, [facility] [address], [place], [address]. tel:[phone] [facility] , [address], [place], [address], [place] tel:[phone] [facility] , Rheumatoid Arthritis Kb Martin. [facility] [address], [place], [address], [place]. tel:[phone] Office/Outpa tient Visit, Est [facility] , [address], [place], [address], [place] tel:[phone] [facility] , Rheumatoid Arthritis (chief complaint) Rheumatoid ArthritisOth er specified counselingTh erapeutic Drug MonitoringMy algia and myositis, unspecified Kb Martin. [facility] [address], [place], [address], [place]. tel:[phone] Referring Provider: Mario Leary, [facility] [address], [place], [address]. tel:[phone] [facility] , [address], [place], [address], [place] tel:[phone] [facility] , Rheumatoid Arthritis 3 [facility] Mario. [facility] [address], [place], [address], [place]. tel:[phone] Referring Provider: Mario Leary, [facility] [address], [place], [address]. tel:[phone] [facility] , [address], [place], [address], [place] tel:[phone] [facility] , Rheumatoid Arthritis 3 [facility] Mario. [facility] [address], [place], [address], [place]. tel:[phone] [facility] , [address], [place], [address], [place] tel:[phone] [facility] , No Information May-0 [facility] Mario. [facility] [address], [place], [address], [place]. tel:[phone] Referring Provider: Mario Leary, [facility] [address], [place], [address]. tel:[phone] [facility] , [address], [place], [address], [place] tel:[phone] [facility] , Rheumatoid Arthritis 3 Kb Martin. [facility] [address], [place], [address], [place]. tel:[phone] Office/Outpa tient Visit, Est [facility] , [address], [place], [address], [place] tel:[phone] [facility] , Rheumatoid Arthritis (chief complaint) Rheumatoid ArthritisOth er specified [facility] erapeutic Drug MonitoringOs teoarthrosis , generalized, involving unspecified siteMyalgia and myositis, unspecified 3 Kb Martin. [facility] [address], [place], [address], [place]. tel:[phone] Referring Provider: Mario Leary, [facility] [address], [place], [address]. tel:[phone] [facility] , [address], [place], [address], [place] tel:[phone] [facility] , Rheumatoid Arthritis 3 Kb Martin. [facility] [address], [place], [address], [place]. tel:[phone] Referring Provider: Mario Leary, [facility] [address], [place], [address]. tel:[phone] [facility] , [address], [place], [address], [place] tel:[phone] [facility] , Rheumatoid Arthritis 3 Kb Martin. [facility] [address], [place], [address], [place]. tel:[phone] [facility] , [address], [place], [address], [place] tel:[phone] [facility] , Monitor chronic high risk medications (chief complaint) No Information 3 Kb Martin. [facility] [address], [place], [address], [place]. tel:[phone] Referring Provider: Mario Leary, [facility] [address], [place], [address]. tel:[phone] [facility] , [address], [place], [address], [place] tel:[phone] [facility] , Rheumatoid Arthritis 2 Priscila Munguia. [address], [place], [place], [address], [place]. tel:[phone] Referring Provider: Ezra Davies, [address], [place], [address]. tel:[phone] [facility] , [address], [place], [address], [place] tel: [phone] [facility] , Rheumatoid Arthritis 2 Kb Martin. [facility] [address], [place], [address], [place]. tel:[phone] [facility] , [address], [place], [address], [place] tel:[phone] [facility] , Rheumatoid Arthritis 2 Kb Martin. [facility] [address], [place], [address], [place]. tel:[phone] Office/Outpa tient Visit, Est [facility] , [address], [place], [address], [place] tel:[phone] [facility] , Rheumatoid Arthritis (chief complaint) Rheumatoid ArthritisOth er specified counselingTh erapeutic Drug MonitoringOs teoarthrosis , generalized, involving unspecified siteMyalgia and myositis, unspecified 2 Kb Martin. [facility] [address], [place], [address], [place]. tel:[phone] Referring Provider: Mario Leary, [facility] [address], [place], [address]. tel:[phone] [facility] , [address], [place], [address], [place] tel:[phone] [facility] , No Information 2 Kb Martin. [facility] [address], [place], [address], [place]. tel:[phone] Referring Provider: Mario Leary, [facility] [address], [place], [address]. tel:[phone] [facility] , [address], [place], [address], [place] tel:[phone] [facility] , No Information 2 Kb Martin. [facility] [address], [place], [address], [place]. tel:[phone] Referring Provider: Mario Leary, [facility] [address], [place], [address]. tel:[phone] [facility] , [address], [place], [address], [place] tel:[phone] [facility] , Rheumatoid Arthritis 2 Kb Martin. [facility] [address], [place], [address], [place]. tel:[phone] Office/Outpa tient Visit, Est [facility] , [address], [place], [address], [place] tel:[phone] [facility] , Rheumatoid Arthritis (chief complaint) Rheumatoid ArthritisThe rapeutic Drug MonitoringOt her specified counselingOs teoarthrosis , generalized, involving unspecified siteMyalgia and myositis, unspecifiedG ERD 2 Kb Martin. [facility] [address], [place], [address], [place]. tel:[phone] Referring Provider: Glenn Cleaning [address], [address]. tel:[phone] Family History Family Member Type Diagnosis Age At Onset Problem (finding) No family hist ory of Rheumatoid arthritis Immunizations Vaccine Date Status Comments COVID-19 Pfizer administered Note: 2020 ; Source: Other Provider Payers Payer name Insurance type Covered democrat ID Authoriza tion(s) [employer] Medicare Advantage/[employer] [place] [id number] Social History Type Description Quantity Date Captured Comments Alcohol Use Details No Caffeine Use Details coffee 1-2 cups per day Tobacco Use Status Ex-cigarette smoker 024 Smoking Status Former smoker Smoking Tobacco Use Details Cigarette: No Details Available Cigarette: No Details Available Sex Female Vital Signs Date / Time: Height Weight BMI Pulse Rate Blood Pressure Temperature Respiratory Rate Body Surface Area Head Circumference Head Circ. Percentile Wt./Denys. Percentile BMI percentile Pulse Ox Inhaled Ox 8:53 AM 60.00 in 68.946 kg (152.00 lbs) 29.6 9 kg/m eter (2) 147/70 mm[Hg] 97.00 F Chief Complaint And Reason For Visit From encounter dated '07/13/2023 08:45'. Rheumatoid arthritis (chief complaint) Reason For Referral Reason For Referral No Information Plan Of Treatment Date Type Action Status Appointment Octavia Pinon BOOKED History Of Present Illness Encounter Date Complaint History Of Prese nt Illness Rheumatoid arthritis Rheumatoid arthritis Rheumatoid arthritis Rheumatoid arthritis Rheumatoid arthritis Rheumatoid arthritis Rheumatoid arthritis Rheumatoid arthritis Rheumatoid arthritis Rheumatoid arthritis Rheumatoid arthritis Rheumatoid arthritis Rheumatoid arthritis Rheumatoid arthritis Rheumatoid arthritis Rheumatoid arthritis Rheumatoid arthritis Rheumatoid arthritis Rheumatoid arthritis Rheumatoid arthritis Rheumatoid arthritis Rheumatoid arthritis Rheumatoid arthritis Rheumatoid arthritis Rheumatoid arthritis Rheumatoid arthritis Rheumatoid arthritis Rheumatoid arthritis Rheumatoid arthritis Rheumatoid arthritis Rheumatoid arthritis Rheumatoid arthritis Rheumatoid arthritis Functional Status Date Functional Assessmen t Pain Score 5/10 Instructions Date Instruction Additional Infor mation No Information Assessments Type Assessment Date assessment Counseling assessment High risk medication monitoring assessment Vitamin D deficiency assessment Seropositive RA assessment Myositis assessment Osteopenia assessment Fatty (change of) liver, not els ewhere classified assessment Pain Patient Care Teams Name Effective Dates (start - stop) Status Members No Information
== END 2023-09-14 11:23 | disposition home or self-care (01) ==
PROVIDERS: PCP Family Medicine; Visit Provider Family Medicine
DX: E11.9 Type 2 diabetes mellitus without complications (principal); I10 Essential (primary) hypertension; E03.9 Hypothyroidism, unspecified; R53.83 Other fatigue; E55.9 Vitamin D deficiency, unspecified; R79.89 Other specified abnormal findings of blood chemistry; E78.5 Hyperlipidemia, unspecified
CPT/HCPCS: 80048; 80061; 82306; 84443

== ENCOUNTER 2023-10-15 13:49 | Outpatient (CLI) | payer MEDICARE, BC, SELFPAY ==
--- OUTSIDE RECORDS SUMMARY | 2023-10-15 13:52 | XMS_ITS | Continuity of Care Document ---
Author Organization [facility] Address [address] [place] [address] Phone Care Team Providers Care Pallet Assembler Name Role Phone Leyla SRIVASTAVA, PhD, Javi Unavailable Unavai lable Allergies, Adverse Reactions, Alerts Substance Reaction Status Criticality tizanidine Active No Information gluten Active No Information Fsdwgvc-PIB-YfG Reductase Inhibitors Acti ve No Information POLYMYXIN [...] C, [address], [place], [id number], [place] tel:[phone] [facility] [place] Arthrodesis status Leyla Caldwell. [facility], [address], [place], [address], [place]. tel:[phone] Referring Provider: Glenn Francisco, [address], [address]. tel:[phone] Office/Outpat ient Visit,Est, Mod [facility], [address], [place], [id number], [place] tel:[phone] [facility] Arthrodesis status Leyla Caldwell. [facility] [place], [address], [place], [address], [place]. [phone] Referring Provider: Glenn Francisco, [facility] [address] [place], [address]. tel:[phone] [facility], [address], [place], [id number], [place] tel:[phone] [facility] Arthrodesis status Leyla Caldwell. [facility] [place], [address], [place], [address], [place]. [phone] Referring Provider: Glenn Francisco, [facility] [address] [place], [address]. tel:[phone] [facility], [address], [place], [place], [id number], [place] tel:[phone] [facility] Arthrodesis status Leyla Caldwell. [facility] [place], [address], [place], [address], [place]. [phone] Referring Provider: Glenn Francisco, [facility] [address] [place], [address]. tel:[phone] [facility], [address], [place], [id number], [place] tel:[phone] [facility] No Information Chris Bailey. [facility] [place], [address], [facility] [place], [id number] , [place]. [phone] Referring Provider: Glenn Francisco, [facility] [address] [place], [address]. tel:[phone] [facility], [address], [place], [id number], [place] tel:[phone] [facility] No Information Leyla Caldwell. [facility], [address], [place], [address], [place]. tel:[phone] Referring [facility]: [facility] [address] [place], [address]. tel:[phone] Office/Outpat ient Visit,[facility], [facility], [address], [place], [place], [id number], [place] tel:[phone] [facility] - [place] Spondylolisth esis, lumbar region Leyla Caldwell. [facility], [address], [place], [address], [place]. tel:[phone] Referring Provider: [facility] [address] [place], [address]. tel:[phone] [facility], [address], [facility] [place], [id number], [place] tel:[phone] [facility] - [place] Low back pain Leyla Caldwell. [facility], [address], [place], [address], [place]. tel:[phone] Family History Family Member Type Diagnosis Age At Onset No Information Payers Payer name Insurance type Covered alliance party [place] long[place]) [place] [id number] Medicare [facility] [id number] Social History Type Description Quantity Date [...]
--- OUTSIDE RECORDS SUMMARY | 2023-10-15 13:53 | XMS_ITS | Clinical Summary ---
Author Organization [facility] Address [address] [place] [address] Care Team Providers Care Sulfonation Equipment Operator Name Role Phone Unavailable Primary Care Provider Unavailabl e Source Comments Patient records contain information from all sites at [facility]. For routine questions regarding patient records, call [phone] during business hours, M-F 8:00 AM - 5:00 PM Central Time. Record requests for emergency care only can be directed to [phone] at [address] time[address] Allergies Active Allergy Reactions Criticality Noted Date [...] Noted Date Diagnosed Date Arthritis Rheumatoid 10/06/2012 Overview (07/22/2016): Arthritis, rheumatoid* Immunizations Name Administration Dates Next Due DTaP (Infanrix, [employer]) 07/27/2007 Influenza, Unspecified 02/02/2009,12/31/2007 Social History Tobacco Use Types Packs/Day Years Used Date Smoking Tobacco: Unknown Nutrition Answer Date Recorded Nutrition: EVOO Fat Source Unknown 05/05 Nutrition: Servings of Fruits/Vegetables per Day Not on file 05/05/2022 Dental Answer Date Recorded Dental: Regular Dentist Unknown 05/06/19 Sex and Gender Information Value Date Recorded [...] 03/10/2019 HPV Vaccines Aged Out No longer anurag parra based on patient's age to complete this topic Advance Directives For more information, please contact: [phone] Documents on File Type Date 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
--- OUTSIDE RECORDS SUMMARY | 2023-10-15 13:53 | XMS_ITS | Referral Summary ---
Author Organization [facility] Address [address] [place] [address] Care Team Providers Care Machine Tool Technician Instructor Name Role Phone Unavailable Primary Care Provider Unavailabl e Source Comments Patient records contain information from all sites at [facility]. For routine questions regarding patient records, call [phone] during business hours, M-F 8:00 AM - 5:00 PM Central Time. 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
--- OUTSIDE RECORDS SUMMARY | 2023-10-15 13:53 | XMS_ITS | Continuity of Care Document ---
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 VITAMIN B-12 (unknown strength) take 1 Tablet by Oral route every day Not Available - Active glimepiride 1 mg tablet take 1 tablet by oral route every day 1 MG - Active CO Q-10 (unknown strength) take 1 Capsule by Oral route every day Not Available - Active REPATHA SURECLICK (unknown strength) inject 1 milliliter by subcutaneous route every 2 weeks in the abdomen, thigh, or outer area of upper arm (rotate sites) Not Available - Active Trulicity 0.75 mg/0.5 mL subcutaneous pen injector inject (0.75MG) by subcutaneous route every week 0.75 MG - Active levothyroxine 88 mcg tablet take 1 tablet by oral route every day 88 MCG - Active ketoconazole 2 % topical cream apply by topical route 2 times every day to the affected area(s) 0.00 - Active BUTALBITAL-ASPIRIN -CAFFEINE (unknown strength) as needed Not Available - Active aspirin 81 mg tablet,delayed release take 1 tablet by oral route every day 81 MG - Active TheraCal D4000 250 mg [...] fill 3 month supply at upcoming appt Procedures Procedure Date Office/Outpatient Visit, Est Routine [...] Transferase Ast Sgot Alanine Amino Alt Sgpt Advance Directives Directive Yes / No Effective Date File Name No Information Encounters Encounter Description Practice Location Reason(s) For Visit Diagnoses Date Provider Providers Copied on Encounter [facility] , [address], [place], [address], [place] tel:[phone] [facility] No Information 4 Kb Martin. [facility] [address], [place], [address], [place]. tel:[phone] Office/Outpa tient Visit, Est [facility] , [address], [place], [address], [place] tel:[phone] [facility] , Rheumatoid arthritis (chief complaint) CounselingHi gh risk medication monitoringVi tamin D deficiencySe ropositive RAMyositisOs teopeniaFatt y (change of) liver, not elsewhere classifiedPa in 4 Kb Martin. [facility] [address], [place], [address], [place]. tel:[phone] Referring Provider: Mario Leary, [facility] [address], [place], [place], [address]. tel:[phone] Office/Outpa tient Visit, Est [facility] , [address], [place], [address], [place] tel:[phone] [facility] , Rheumatoid arthritis (chief complaint) CounselingHi gh risk medication monitoringVi tamin D deficiencySe ropositive RAMyositisOs teopeniaFatt y (change of) liver, not elsewhere classified 3 Kb Martin. [facility] [address], [place], [address], [place]. tel:[phone] Referring Provider: Mario Leary, [facility] [address], [place], [address]. tel:[phone] Office/Outpa tient Visit, Est [facility] , [address], [place], [address], [place] tel:[phone] [facility] , Rheumatoid arthritis (chief complaint) CounselingHi gh risk medication monitoringVi tamin D deficiencySe ropositive RAMyositisOs teopeniaFatt y (change of) liver, not elsewhere classified 3 Kb Martin. [facility] [address], [place], [address], [place]. tel:[phone] Referring Provider: Mraio Leary [facility] [address], [place], [address]. tel:[phone] Office/Outpa tient Visit, Est [facility] , [address], [place], [address], [place] tel:[phone] [facility] , Rheumatoid arthritis (chief complaint) CounselingHi gh risk medication monitoringVi tamin D deficiencySe ropositive RAMyositisOs teopeniaFatt y (change of) liver, not elsewhere classified 3 Kb Martin. [facility] [address], [place], [address], [place]. tel:[phone] Referring Provider: Mario Leary, [facility] [address], [place], [address]. tel:[phone] Office/Outpa tient Visit, Est [facility] , [address], [place], [address], [place] tel:[phone] [facility] , Rheumatoid arthritis (chief complaint) Vitamin D deficiencySe ropositive RAMyositisOs teopeniaCoun selingHigh risk medication monitoringFa tty (change of) liver, not elsewhere classified 3 Kb Martin. [facility] [address], [place], [address], [place]. tel:[phone] Referring Provider: Mario Leary, [facility] [address], [place], [address]. tel:[phone] Office/Outpa tient Visit, Est [facility] , [address], [place], [address], [place] tel:[phone] [facility] , Rheumatoid arthritis (chief complaint) Vitamin D deficiencySe ropositive RAMyositisOs teopeniaCoun selingHigh risk medication monitoringFa tty (change of) liver, not elsewhere classifiedOt her low back pain Oct- 2 Kb Martin. [facility] [address], [place], [address], [place]. tel:[phone] Referring Provider: Mario Leary, [facility] [address], [place], [address]. tel:[phone] Office/Outpa tient Visit, Est [facility] , [address], [place], [address], [place] tel:[phone] [facility] , Rheumatoid arthritis (chief complaint) Vitamin D deficiencySe ropositive RAMyositisOs teopeniaCoun selingHigh risk medication monitoringFa tty (change of) liver, not elsewhere classified 2 Kb Martin. [facility] [address], [place], [address], [place]. tel:[phone] Referring Provider: Mario Leary, [facility] [address], [place], [address]. tel:[phone] Office/Outpa tient Visit, Est [facility] , [address], [place], [address], [place] tel:[phone] [facility] , Rheumatoid arthritis (chief complaint) Vitamin D deficiencySe ropositive RAMyositisOs teopeniaElev ated liver enzymesCouns elingHigh risk medication monitoring 2 Kb Martin. [facility] [address], [place], [address], [place]. tel:[phone] Referring Provider: Mario Leary [facility] [address], [place], [address]. tel:[phone] Office/Outpa tient Visit, Est [facility] , [address], [place], [address], [place] tel:[phone] [facility] , Rheumatoid arthritis (chief complaint) Vitamin D deficiencySe ropositive RAOA of 1st [facility] jointMyositi sOsteopeniaE levated liver enzymesCouns elingHigh risk medication monitoring 1 Kb Martin. [facility] [address], [place], [address], [place]. tel:[phone] Referring Provider: Mario Leary, [facility] [address], [place], [address]. tel:[phone] Office/Outpa tient Visit, Est [facility] , [address], [place], [address], [place] tel:[phone] [facility] , Rheumatoid arthritis (chief complaint) Vitamin D deficiencySe ropositive RAOA of 1st [facility] jointMyositi sOsteopeniaE levated liver enzymesHigh risk medication monitoringCo unseling 1 Kb Martin. [facility] [address], [place], [address], [place]. tel:[phone] Referring Provider: Mario Leary, [facility] [address], [place], [address]. tel:[phone] Office/Outpa tient Visit, Est [facility] , [address], [place], [address], [place] tel:[phone] [facility] , Rheumatoid arthritis (chief complaint) Vitamin D deficiencySe ropositive RAOA of 1st [facility] jointMyositi sOsteopeniaE levated liver enzymesHigh risk medication monitoringCo unseling 1 Kb Martin. [facility] [address], [place], [address], [place]. tel:[phone] Referring Provider: Mario Leary, [facility] [address], [place], [address]. tel:[phone] Office/Outpa tient Visit, Est [facility] , [address], [place], [address], [place] tel:[phone] [facility] , Rheumatoid arthritis (chief complaint) Vitamin D deficiencySe ropositive RAOA of 1st [facility] jointMyositi sOsteopeniaE levated liver enzymesHigh risk medication monitoringCo unselingBack pain 0 Kb Martin. [facility] [address], [place], [address], [place]. tel:[phone] Referring Provider: Mario Leary, [facility] [address], [place], [address]. tel:[phone] Office/Outpa tient Visit, Est [facility] , [address], [place], [address], [place] tel:[phone] [facility] , Rheumatoid arthritis (chief complaint) Vitamin D deficiencySe ropositive RABilateral knee OAOA of 1st [facility] jointMyositi sOsteopeniaE levated liver enzymesHigh risk medication monitoring 0 Kb Martin. [facility] [address], [place], [address], [place]. tel:[phone] Referring Provider: Mario Leary, [facility] [address], [place], [address]. tel:[phone] Office/Outpa tient Visit, Est [facility] , [address], [place], [address], [place] tel:[phone] [facility] , Rheumatoid arthritis (chief complaint) Vitamin D deficiencySe ropositive RABilateral knee OAOA of 1st [facility] jointMyositi sOsteopeniaE levated liver enzymesHigh risk medication monitoringPl jorge fasciitis Apr- 0 Kb Martin. [facility] [address], [place], [address], [place]. tel:[phone] Referring Provider: Mario Leary, [facility] [address], [place], [address]. tel:[phone] Office/Outpa tient Visit, Est [facility] , [address], [place], [address], [place] tel:[phone] [facility] , Rheumatoid arthritis (chief complaint) OsteopeniaEl evated liver enzymesHigh risk medication monitoringOA of 1st [facility] jointVitamin D deficiencySe ropositive RABilateral knee OAMyositis [facility] Mario. [facility] [address], [place], [address], [place]. tel:[phone] Referring Provider: Mario Leary, [facility] [address], [place], [address]. tel:[phone] Office/Outpa tient Visit, Est [facility] , [address], [place], [address], [place] tel:[phone] [facility] , Rheumatoid arthritis (chief complaint) Vitamin D deficiencySe ropositive RABilateral knee OAMyositisOs teopeniaElev ated liver enzymesHigh risk medication monitoringOA of 1st [facility] Mario. [facility] [address], [place], [address], [place]. tel:[phone] Referring Provider: Mario Leary, [facility] [address], [place], [address]. tel:[phone] Office/Outpa tient Visit, Est [facility] , [address], [place], [address], [place] tel:[phone] [facility] , Rheumatoid arthritis (chief complaint) Vitamin D deficiencySe ropositive RABilateral knee OAMyositisOs teopeniaElev ated liver enzymesHigh risk medication monitoring 9 Kb Martin. [facility] [address], [place], [address], [place]. tel:[phone] Referring Provider: Mario Leary, [facility] [address], [place], [address]. tel:[phone] Office/Outpa tient Visit, Est [facility] , [address], [place], [address], [place] tel:[phone] [facility] , Rheumatoid arthritis (chief complaint) Vitamin D deficiencySe ropositive RABilateral knee OAMyositisOs teopeniaElev ated liver enzymesHigh risk medication monitoringFa tigueLateral epicondyliti s, unspecified elbow 8 Kb Martin. [facility] [address], [place], [address], [place]. tel:[phone] Referring Provider: Mario Leary, [facility] [address], [place], [address]. tel:[phone] Office/Outpa tient Visit, Est [facility] , [address], [place], [address], [place] tel:[phone] [facility] , Rheumatoid arthritis (chief complaint) Vitamin D deficiencySe ropositive RABilateral knee OAMyositisOs teopeniaHigh risk medication monitoringEl evated liver enzymes 8 Kb Martin. [facility] [address], [place], [address], [place]. tel:[phone] Referring Provider: Mario Leary, [facility] [address], [place], [address]. tel:[phone] Office/Outpa tient Visit, Est [facility] , [address], [place], [address], [place] tel:[phone] [facility] , Rheumatoid arthritis (chief complaint) Seropositive RABilateral knee OAMyositisOs teopeniaHigh risk medication monitoringVi tamin D deficiency Kb Martin. [facility] [address], [place], [address], [place]. tel:[phone] Referring Provider: Mario Leary, [facility] [address], [place], [address]. tel:[phone] Office/Outpa tient Visit, Est [facility] , [address], [place], [address], [place] tel:[phone] [facility] , Rheumatoid arthritis (chief complaint) Seropositive RABilateral knee OAMyositisOs teopeniaHigh risk medication monitoring Kb Martin. [facility] [address], [place], [address], [place]. tel:[phone] Referring Provider: Mario Leary, [facility] [address], [place], [address]. tel:[phone] Office/Outpa tient Visit, Est [facility] , [address], [place], [address], [place] tel:[phone] [facility] , Rheumatoid arthritis (chief complaint) Seropositive RABilateral knee OAMyositisOs teopeniaHigh risk medication monitoring Kb Martin. [facility] [address], [place], [address], [place]. [phone] Referring Provider: Mario Leary, [facility] [address], [place], [address]. tel:[phone] Office/Outpa tient Visit, Est [facility] , [address], [place], [address], [place] tel:[phone] [facility] , Rheumatoid arthritis (chief complaint) Seropositive RABilateral knee OAMyositisOs teopeniaHigh risk medication monitoring Kb Martin. [facility] [address], [place], [address], [place]. tel:[phone] Referring Provider: Mario Leary, [facility] [address], [place], [address]. tel:[phone] Office/Outpa tient Visit, Est [facility] , [address], [place], [address], [place] tel:[phone] [facility] , Rheumatoid arthritis (chief complaint) Seropositive RABilateral knee OAMyositisOs teopeniaHigh risk medication monitoring Kb Martin. [facility] [address], [place], [address], [place]. tel:[phone] Referring Provider: Mario Leary, [facility] [address], [place], [address]. tel:[phone] [facility] , [address], [place], [address], [place] tel:[phone] [facility] , Osteopenia 7 Kb Martin. [facility] [address], [place], [address], [place]. tel:[phone] Referring Provider: Mario Leary, [facility] [address], [place], [address]. tel:[phone] Office/Outpa tient Visit, Est [facility] , [address], [place], [address], [place] tel:[phone] [facility] , Rheumatoid arthritis (chief complaint) Seropositive RABilateral knee OAMyositisOs teopeniaHigh risk medication monitoring Kb Martin. [facility] [address], [place], [address], [place]. tel:[phone] Referring Provider: Mario Leary, [facility] [address], [place], [address]. tel:[phone] Office/Outpa tient Visit, Est [facility] , [address], [place], [address], [place] tel:[phone] [facility] , Rheumatoid arthritis (chief complaint) Seropositive RABilateral knee OAMyositisOs teopeniaHigh risk medication monitoring 6 Kb Martin. [facility] [address], [place], [address], [place]. tel:[phone] Referring Provider: Mario Leayr, [facility] [address], [place], [address]. tel:[phone] Office/Outpa tient Visit, Est [facility] , [address], [place], [address], [place] tel:[phone] [facility] , Rheumatoid arthritis (chief complaint) Seropositive RAOsteopenia MyositisHigh risk medication monitoringBi lateral knee OABursitis of unspecified shoulderTroc hanteric bursitis of left hip 6 [facility]. [facility] [address], [place], [address], [place]. tel:[phone] Referring Provider: Mario Leary, [facility] [address], [place], [address]. tel:[phone] Office/Outpa tient Visit, Est [facility] , [address], [place], [address], [place] tel:[phone] [facility] , Rheumatoid arthritis (chief complaint) Seropositive RAOsteopenia MyositisHigh risk medication monitoringBi lateral knee OA 6 [facility] Mario. [facility] [address], [place], [address], [place]. tel:[phone] Referring Provider: Mario Leary, [facility] [address], [place], [address]. tel:[phone] Office/Outpa tient Visit, Est [facility] , [address], [place], [address], [place] tel:[phone] [facility] , Rheumatoid arthritis (chief complaint) Seropositive RAOsteopenia MyositisHigh risk medication monitoringBi lateral knee OA 2-201 6 [facility] [address], [place], [address], [place]. tel:[phone] Referring Provider: Mario Leary, [facility] [address], [place], [address]. tel:[phone] [facility] , [address], [place], [address], [place] tel:[phone] [facility] , Seropositive RA 6 [facility] Mario. [facility] [address], [place], [address], [place]. tel:[phone] Referring Provider: Mario Leary, [facility] [address], [place], [address]. tel:[phone] [facility] , [address], [place], [address], [place] tel:[phone] [facility] , Seropositive RA 6 Kbovidio Martin. [facility] [address], [place], [address], [place]. tel:[phone] Referring Provider: Mario Leary, [facility] [address], [place], [address]. tel:[phone] Office/Outpa tient Visit, Est [facility] , [address], [place], [address], [place] tel:[phone] [facility] , Rheumatoid arthritis (chief complaint) Seropositive RAOsteopenia MyositisHigh risk medication monitoringBi lateral knee OA 5 Kbovidio Martin. [facility] [address], [place], [address], [place]. tel:[phone] Referring Provider: Mario Leary, [facility] [address], [place], [address]. tel:[phone] Office/Outpa tient Visit, Est [facility] , [address], [place], [address], [place] [phone] [facility] , Rheumatoid arthritis (chief complaint) Rheumatoid ArthritisOst eoarthrosis, generalized, involving unspecified siteMyalgia and myositis, unspecifiedO steopeniaThe rapeutic Drug Monitoring 5 Kb Martin. [facility] [address], [place], [address], [place]. tel:[phone] Referring Provider: Mario Leary, [facility] [address], [place], [address]. [phone] [facility] , [address], [place], [address], [place] tel:[phone] [facility] , Rheumatoid Arthritis Kb Martin. [facility] [address], [place], [address], [place]. tel:[phone] Referring Provider: Mario Leary, [facility] [address], [place], [address]. tel:[phone] [facility] , [address], [place], [address], [place] tel:[phone] [facility] , Rheumatoid Arthritis 5 Diana Lopez. [facility] [address], [place], [address], [place]. tel:[phone] Referring Provider: John Gutierrez, [facility] [address], [place], [address]. tel:[phone] Office/Outpa tient Visit, Est [facility] , [address], [place], [address], [place] tel:[phone] [facility] , Rheumatoid arthritis (chief complaint) Rheumatoid ArthritisOst eoarthrosis, generalized, involving unspecified siteMyalgia and myositis, unspecifiedO steopeniaThe rapeutic Drug Monitoring Kb Martin. [facility] [address], [place], [address], [place]. tel:[phone] Referring Provider: Mario Leary, [facility] [address], [place], [address]. tel:[phone] [facility] , [address], [place], [address], [place] tel:[phone] [facility] , Rheumatoid Arthritis Kb Martin. [facility] [address], [place], [address], [place]. tel:[phone] Referring Provider: Mario Leary, [facility] [address], [place], [address]. tel:[phone] [facility] , [address], [place], [address], [place] tel:[phone] [facility] , Rheumatoid Arthritis Kb Nielsenad. [facility] [address], [place], [address], [place]. tel:[phone] Office/Outpa tient Visit, Est [facility] , [address], [place], [address], [place] tel:[phone] [facility] , Rheumatoid arthritis (chief complaint) Rheumatoid ArthritisOst eoarthrosis, generalized, involving unspecified siteOsteopen iaMyalgia and myositis, unspecifiedT herapeutic Drug Monitoring Kbovidio Martin. [facility] [address], [place], [address], [place]. tel:[phone] Referring Provider: Mario Leary, [facility] [address], [place], [address]. tel:[phone] [facility] , [address], [place], [address], [place] tel:[phone] [facility] , Rheumatoid Arthritis [facility] Mario. [facility] [address], [place], [address], [place]. tel:[phone] Referring Provider: Mario Laery, [facility] [address], [place], [address]. tel:[phone] [facility] , [address], [place], [address], [place] tel:[phone] [facility] , Rheumatoid Arthritis [facility] Mario. [facility] [address], [place], [address], [place]. tel:[phone] [facility] , [address], [place], [address], [place] tel:[phone] [facility] , Rheumatoid Arthritis 4 [facility] Mario. [facility] [address], [place], [address], [place]. tel:[phone] Referring Provider: Mario Leary, [facility] [address], [place], [address]. tel:[phone] [facility] , [address], [place], [address], [place] tel:[phone] [facility] , Rheumatoid Arthritis 4 [facility] Mario. [facility] [address], [place], [address], [place]. tel:[phone] Office/Outpa tient Visit, Est [facility] , [address], [place], [address], [place] tel:[phone] [facility] , Rheumatoid Arthritis (chief complaint) Rheumatoid ArthritisMya lgia and myositis, unspecifiedD isorder of bone and cartilage, unspecifiedT herapeutic Drug MonitoringAb normal Liver Enzymes 4 [facility] Mario. [facility] [address], [place], [address], [place]. tel:[phone] Referring Provider: Mario Leary, [facility] [address], [place], [address]. tel:[phone] [facility] , [address], [place], [address], [place] tel:[phone] [facility] , Rheumatoid Arthritis 4 Kb Martin. [facility] [address], [place], [address], [place]. tel:[phone] Referring Provider: Mario Leary, [facility] [address], [place], [address]. tel:[phone] [facility] , [address], [place], [address], [place] tel:[phone] [facility] , Rheumatoid Arthritis 4 Kbovidio Martin. [facility] [address], [place], [address], [place]. tel:[phone] Office/Outpa tient Visit, Est [facility] , [address], [place], [address], [place] tel:[phone] [facility] , Rheumatoid Arthritis (chief complaint) Rheumatoid ArthritisMya lgia and myositis, unspecifiedD isorder of bone and cartilage, unspecifiedA bnormal Liver EnzymesThera peutic Drug Monitoring 4 Kb Martin. [facility] [address], [place], [address], [place]. tel:[phone] Referring Provider: Mario Leary, [facility] [address], [place], [address]. tel:[phone] [facility] , [address], [place], [address], [place] tel:[phone] [facility] , Rheumatoid Arthritis 4 Kb Martin. [facility] [address], [place], [address], [place]. tel:[phone] Referring Provider: Mario Leary, [facility] [address], [place], [address]. tel:[phone] [facility] , [address], [place], [address], [place] tel:[phone] [facility] , Rheumatoid Arthritis May-0 7 4 [facility] Mario. [facility] [address], [place], [address], [place]. tel:[phone] Referring Provider: Mario Leary, [facility] [address], [place], [address]. tel:[phone] [facility] , [address], [place], [address], [place] tel:[phone] [facility] , Rheumatoid Arthritis Apr-3 0201 4 [facility] Mario. [facility] [address], [place], [address], [place]. tel:[phone] Office/Outpa tient Visit, Est [facility] , [address], [place], [address], [place] tel:[phone] [facility] , Rheumatoid Arthritis (chief complaint) Rheumatoid ArthritisMya lgia and myositis, unspecifiedT herapeutic Drug MonitoringDi sorder of bone and cartilage, unspecifiedA bnormal Liver Enzymes Apr-2 1201 4 [facility] Mario. [facility] [address], [place], [address], [place]. tel:[phone] Referring Provider: Mario Leary, [facility] [address], [place], [address]. tel:[phone] [facility] , [address], [place], [address], [place] tel:[phone] [facility] , No Information May- 4 Kb Martin. [facility] [address], [place], [address], [place]. tel:[phone] Referring Provider: Mario Leary, [facility] [address], [place], [address]. tel:[phone] [facility] , [address], [place], [address], [place] tel:[phone] [facility] , Rheumatoid Arthritis Apr- 4 Kb Martin. [facility] [address], [place], [address], [place]. tel:[phone] Referring Provider: Mario Leary, [facility] [address], [place], [address]. tel:[phone] [facility] , [address], [place], [address], [place] tel:[phone] [facility] , Rheumatoid Arthritis Apr-0 4 Kb Martin. [facility] [address], [place], [address], [place]. tel:[phone] Office/Outpa tient Visit, Est [facility] , [address], [place], [address], [place] tel:[phone] [facility] , Rheumatoid Arthritis (chief complaint) Rheumatoid ArthritisUns pecified disorder of synovium, tendon, and bursaTherape [facility] Drug MonitoringOt her specified counselingMy algia and myositis, unspecified 4 Kb Martin. [facility] , [facility] [address], [place], [address], [place]. tel:[phone] Referring Provider: Mario Leary, [facility] , [facility] [address], [place], [address]. tel:[phone] [facility] , [address], [place], [address], [place] tel:[phone] [facility] , Rheumatoid Arthritis 4 Kb Martin. [facility] [address], [place], [address], [place]. tel:[phone] Referring Provider: Mario Leary, [facility] [address], [place], [address]. tel:[phone] [facility] , [address], [place], [address], [place] tel:[phone] [facility] , Rheumatoid Arthritis 4 Kb Martin. [facility] [address], [place], [address], [place]. tel:[phone] [facility] , [address], [place], [address], [place] tel:[phone] [facility] , Rheumatoid Arthritis 3 Kb Martin. [facility] [address], [place], [address], [place]. tel:[phone] Referring Provider: Mario Leary, [facility] [address], [place], [address]. tel:[phone] [facility] , [address], [place], [address], [place] tel:[phone] [facility] , Rheumatoid Arthritis 3 Kb Martin. [facility] [address], [place], [address], [place]. tel:[phone] Office/Outpa tient Visit, Est [facility] , [address], [place], [address], [place] tel:[phone] [facility] , Rheumatoid Arthritis (chief complaint) Rheumatoid ArthritisOth er specified counselingTh erapeutic Drug MonitoringMy algia and myositis, unspecified 3 Kb Martin. [facility] , [facility] [address], [place], [address], [place]. tel:[phone] Referring Provider: Mario Leary, [facility] , [facility] [address], [place], [address]. tel:[phone] [facility] , [address], [place], [address], [place] tel:[phone] [facility] , Rheumatoid Arthritis 3 Kb Martin. [facility] [address], [place], [address], [place]. tel:[phone] Referring Provider: Mario Leary, [facility] [address], [place], [address]. tel:[phone] [facility] , [address], [place], [address], [place] tel:[phone] [facility] , Rheumatoid Arthritis Kb Martin. [facility] [address], [place], [address], [place]. tel:[phone] [facility] , [address], [place], [address], [place] tel:[phone] [facility] , Rheumatoid Arthritis Kb Martin. [facility] , [facility] [address], [place], [address], [place]. tel:[phone] [facility] , [address], [place], [address], [place] tel:[phone] [facility] , Rheumatoid Arthritis Kbovidio Martin. [facility] , [facility] [address], [place], [address], [place]. tel:[phone] Referring Provider: Mario Leary, [facility] [address], [place], [address]. tel:[phone] [facility] , [address], [place], [address], [place] tel:[phone] [facility] , Rheumatoid Arthritis 3 Kb Martin. [facility] , [facility] [address], [place], [address], [place]. tel:[phone] Office/Outpa tient Visit, Est [facility] , [address], [place], [address], [place] tel:[phone] [facility] , Rheumatoid Arthritis (chief complaint) Rheumatoid ArthritisOth er specified counselingTh erapeutic Drug MonitoringMy algia and myositis, unspecified 0 3 Kb Martin. [facility] , [facility] [address], [place], [address], [place]. tel:[phone] Referring Provider: Mario Leary, [facility] [address], [place], [address]. tel:[phone] [facility] , [address], [place], [address], [place] tel:[phone] [facility] , Rheumatoid Arthritis 3 Kb Martin. [facility] [address], [place], [address], [place]. tel:[phone] Referring Provider: Mario Leary, [facility] [address], [place], [address]. tel:[phone] [facility] , [address], [place], [address], [place] tel:[phone] [facility] , Rheumatoid Arthritis 3 Kb Martin. [facility] [address], [place], [address], [place]. tel:[phone] [facility] , [address], [place], [address], [place] tel:[phone] [facility] , No Information 0 3 Kb Martin. [facility] [address], [place], [address], [place]. tel:[phone] Referring Provider: Mario Leary, [facility] [address], [place], [address]. tel:[phone] [facility] , [address], [place], [address], [place] tel:[phone] [facility] , Rheumatoid Arthritis 3 Kb Martin. [facility] [address], [place], [address], [place]. tel:[phone] Office/Outpa tient Visit, Est [facility] , [address], [place], [address], [place] tel:[phone] [facility] , Rheumatoid Arthritis (chief complaint) Rheumatoid ArthritisOth er specified counselingTh erapeutic Drug MonitoringOs teoarthrosis , generalized, involving unspecified siteMyalgia and myositis, unspecified 3 Kb Martin. [facility] , [facility] [address], [place], [address], [place]. tel:[phone] Referring Provider: Mario Leary, [facility] [address], [place], [address]. tel:[phone] [facility] , [address], [place], [address], [place] tel:[phone] [facility] , Rheumatoid Arthritis 3 Kb Martin. [facility] [address], [place], [address], [place]. tel:[phone] Referring Provider: Mario Leary, [facility] [address], [place], [address]. [phone] [facility] , [address], [place], [address], [place] [phone] [facility] , Rheumatoid Arthritis 3 Kb Martin. [facility] [address], [place], [address], [place]. tel:[phone] [facility] , [address], [place], [address], [place] tel:[phone] [facility] , Monitor chronic high risk medications (chief complaint) No Information Kb Martin. [facility] [address], [place], [address], [place]. tel:[phone] Referring Provider: Mario Leary, [facility] [address], [place], [address]. [phone] [facility] , [address], [place], [address], [place] [phone] [facility] , Rheumatoid Arthritis 2 Priscila Munguia. [address], [place], [place], [address], [place]. tel:[phone] Referring Provider: Ezra Davies, [address], [place], [address]. tel:[phone] [facility] , [address], [place], [address], [place] tel:[phone] [facility] , Rheumatoid Arthritis 2 Kb Martin. [facility] [address], [place], [address], [place]. tel:[phone] [facility] , [address], [place], [address], [place] tel:[phone] [facility] , Rheumatoid Arthritis 2 Kb Martin. [facility] , [facility] [address], [place], [address], [place]. tel:[phone] Office/Outpa tient Visit, Est [facility] , [address], [place], [address], [place] tel:[phone] [facility] , Rheumatoid Arthritis (chief complaint) Rheumatoid ArthritisOth er specified counselingTh erapeutic Drug MonitoringOs teoarthrosis , generalized, involving unspecified siteMyalgia and myositis, unspecified 2 Kb Martin. [facility] [address], [place], [address], [place]. tel:[phone] Referring Provider: Mario Leary, [facility] [address], [place], [address]. tel:[phone] [facility] , [address], [place], [address], [place] tel:[phone] [facility] , No Information 2 Kb Martin. [facility] , [facility] [address], [place], [address], [place]. tel:[phone] Referring Provider: Mario Leary, [facility] [address], [place], [address]. tel:[phone] [facility] , [address], [place], [address], [place] tel:[phone] [facility] , No Information Kb Martin. [facility] [address], [place], [address], [place]. tel:[phone] Referring Provider: Mario Leary, [facility] [address], [place], [address]. tel:[phone] [facility] , [address], [place], [address], [place] tel:[phone] [facility] , Rheumatoid Arthritis Kb Martin. [facility] [address], [place], [address], [place]. tel:[phone] Office/Outpa tient Visit, Est [facility] , [address], [place], [address], [place] tel:[phone] [facility] , Rheumatoid Arthritis (chief complaint) Rheumatoid ArthritisThe rapeutic Drug MonitoringOt her specified counselingOs teoarthrosis , generalized, involving unspecified siteMyalgia and myositis, unspecifiedG ERD Kb Martin. [facility] [address], [place], [address], [place]. tel:[phone] Referring Provider: Kelvin Javier [address] [place], [address]. tel:[phone] Family History Family Member Type Diagnosis Age At Onset Problem (finding) No family hist ory of Rheumatoid arthritis Immunizations Vaccine Date Status Comments COVID-19 Pfizer administered Note: 2020 ; Source: Other Provider Payers Payer name Insurance type Covered green party ID Authoriza tion(s) [employer] Advantage/[employer] [id number] Social History Type Description Quantity Date Captured Comments Sex Female Smoking Status No Information Chief Complaint And Reason For Visit No [...] arthritis Functional Status Date Functional Assessmen t No Information Instructions Date Instruction Additional Infor mation No Information Assessments Type Assessment Date No Information Patient Care Teams Name Effective Dates (start - stop) Status Members No Information
--- OUTSIDE RECORDS SUMMARY | 2023-10-15 13:53 | XMS_ITS | Clinical Summary ---
[facility] Organization [facility] Address [address] [place] [address] Care Team Providers Care Peanut Cleaner Name Role Phone Unavailable Primary Care Provider Unavailabl e Source Comments You are receiving this document as you are listed as the primary care provider,follow-up provider, or the patient has been referred to you for consultation.This is in compliance with the Medicare and[facility] EHR Incentive Program,which states Providers who transition their patient to another setting of careor provider of care or refers their patient to another provider of care shouldprovide summary care record for each transition of care or referral. [facility] Allergies Active Allergy Reactions Criticality Noted Date [...] 12/03/2006 Migraine headache 11/29/2006 Rheumatoid arthritis 07/27/2006 Overview (08/15/2021): Arthritis, rheumatoid* History of tonsillectomy and adenoidectomy 08/13 Immunizations Name Administration Dates Next Due DTaP 07/27/2007 Flu Vac (3+ yrs) 11/30/2012, 2,11/27/2010,2009,02/02/2009,01/10/2008 Flu Vac Preserv Free (3+yrs) 02/02/2009 Flublok (RIV4) 01/10/2019 Influenza (Fluad) 01/07/2018 Influenza IIV4 (Quadrivalent ) 0.5mL (13717) 01/10/2019,01/07/2018,12/31/2016,2015,12/28/2014,11/30/2013 Influenza IIV4 (Quadrivalent ) Fluzone, 65+ [...] - 1.02 mg/dL 10/09/2021 3:25 PM CDT [facility] GFR, Estimated >60 >60 mL/min/1.7 3m2 10/09/2021 3:25 PM CDT [facility] Blood Venipuncture / Unknown 10/09/2021 1:50 PM CDT 10/09/2021 1:50 PM CDT Sushila Tapia APRN, [facility] [address] [place] [address], [facility] [phone] from Last 3 Months or Most Recently Relevant to Health Maintenance
--- OUTSIDE RECORDS SUMMARY | 2023-10-15 13:53 | XMS_ITS ---
Author Organization [facility] Address [address] [place] [address] Care Team Providers Care Electrical Machine Builder Name Role Phone Unavailable Unavailable Unavailable Surgery Details Not on file Complications Check Surgery Details section. Procedure Estimated Blood Loss Check Surgery Details section. Procedure Findings Check Surgery Details section. Procedure Specimens Taken Check Surgery Details section.
--- NOTE | 2023-10-15 14:00 | CRLHL7_ITS ---
For Patients: As a result of the Century Cures Act, medical imaging exams and procedure reports are released immediately into your electronic medical record. You may view this report before your referring provider. If you have questions, please contact your health care provider. DXA BONE MINERAL DENSITY STUDY Reason for exam: Osteopenia. Current height (in): 59. Weight (lb): 151. Menopause age: 47. Ethnicity: White. 1. Have you had a previous hip or vertebral fracture? No. 2. Have you had any fractures during your adult life which did not result from significant trauma (e.g., auto accident)? No. 3. Did either of your parents have a hip fracture? No. 4. Do you smoke? No. 5. Have you ever taken Glucocorticoids? Yes. 6. Do you have rheumatoid arthritis? Yes. 7. Do you have secondary osteoporosis? No. 8. Do you drink 3 or more alcoholic drinks per day? No. 9. Are you being treated for osteoporosis? No. 10. Have you ever taken any of the following medications: Actonel, Evista, Fosamax, Miacalcin, Reclast, Boniva, Forteo, HRT (i.e. estrogen/hormone therapy), Protelos, Prolia, Vitamin D, Calcium, other ??? please specify. ANSWER: Yes, vitamin D and calcium. 11. Do you have any of the following medical conditions: Anorexia or bulimia, asthma or emphysema, end stage renal disease, hyperparathyroidism, any seizure disorders, cancer, inflammatory bowel diseases, hysterectomy, other ??? please specify. ANSWER: Yes, hysterectomy. 12. What was your maximum height (inches)? 60. 13. Do you perform weight bearing exercise regularly? No. 14. Do you regularly consume dairy products? Yes. 15. Do you drink caffeinated beverages? Yes. 16. At what age did your period start? 15. 17. Are you premenopausal? No. 18. How many full term pregnancies have you had? 3. 19. Have you ever missed your period for more than 6 months in a row (not including or menopause)? No. TECHNIQUE: Bone mineral density study was performed using the [employer]. FINDINGS: The results of the study expressed as bone mineral density (BMD) are as follows: Lumbar spine L1 to L4: BMD: 1.075 g/cm2. T-score: 0.3. Z-score: 2.2. Neck Left: BMD: 0.670 g/cm2. T-score: -1.6. Z-score: 0.1. Right: BMD: 0.704 g/cm2. T-score: -1.3. Z-score: 0.4. Total Left: BMD: 0.912 g/cm2. T-score: -0.2. Z-score: 1.1. Right: BMD: 0.943 g/cm2. T-score: 0.0. Z-score: 1.4. IMPRESSION: Osteopenia. FRAX 10-year Fracture Risk Major Osteoporotic Fracture: 19 percent Hip Fracture: 3.2 percent Reported Risk Factors: [place] () Neck BMD=0.670, BMI=30.5. glucocorticoids, rheumatoid arthritis Glenn Dupree M.D. Diagnostic Radiologist [email or web address] MJ/huseyin / bM/Dictated by: Glenn Dupree MD @ 10/16/2023 10:09:00 AM (Electronically Signed)
== END 2023-10-15 13:50 | disposition home or self-care (01) ==
LOC: RAD 13:50
PROVIDERS: PCP Family Medicine; Visit Provider Family Medicine
DX: M85.80 Other specified disorders of bone density and structure, unspecified site (principal); M85.89 Other specified disorders of bone density and structure, multiple sites; Z78.0 Asymptomatic menopausal state
CPT/HCPCS: 77080

== ENCOUNTER 2024-05-03 07:48 | Outpatient (CLI) | payer MEDICARE, BC, SELFPAY ==
[2024-05-03] MEDS: SODIUM CHLORIDE 0.9 % (FLUSH) 10 ML SYRINGE IVF (09:50)
[2024-05-03] MEDS: REGADENOSON 0.4 MG/5 ML SYRINGE IVP (09:50)
--- NOTE | 2024-05-03 11:24 | W.PM.STED ---
Stress Test Note Date Date Seen: 05/03/24 Date of test: 05/03/24 Providers Referring provider: Enzo Gavin Primary care provider: Glenn Francisco Stress test physician: Lizbeth West Stress Test Note Stress test ordered: Lexiscan Indication for test: Chest pain with CAD, 2 stents placed in 2016 (NSTEMI) Stress test medicine: Lexiscmilan Results discussion: Resting EKG: Sinus rhythm, 65 beats per minute. Flipped T-waves lead 3 and potentially V1 without any definitive ST segment change, nonspecific or flattened T-waves in V6 without ST segment change. Resting blood pressure: 134/77 Stress test: Patient has consented on numb walking Lexiscan in agrees to proceed. With administration of the regadenoson, patient experienced flushing/diaphoresis, head pressure which turned into headache, chest pain, right greater than left jaw and ear pain. Her right jaw symptoms, chest pain and headache did continue and patient was ultimately advised to be seen in the ED. she had no concerning blood pressure changes, no arrhythmia she had nondiagnostic changes of inferior and lateral precordial T-wave changes without definitive ST segment changes. We did have patient get her post stress imaging. Impression: Patient with positive symptoms of jaw pain, ongoing chest pain with stress test, EKG not diagnostic for ischemia. Follow up suggested: With ongoing chest pain, patient has been advised to proceed to the ED where she can be on cardiac monitoring and have troponins evaluated. We will await the nuclear images to be read on this test.
== END 2024-05-03 07:49 | disposition home or self-care (01) ==
LOC: STRESS 07:49
PROVIDERS: PCP Family Medicine; Visit Provider Internal Medicine
DX: R07.89 Other chest pain (principal); I25.10 Atherosclerotic heart disease of native coronary artery without angina pectoris; I20.9 Angina pectoris, unspecified
CPT/HCPCS: 78452; 93016; 93017; A9500; J2785

== ENCOUNTER 2024-05-03 10:41 | Emergency (ER) | payer MEDICARE, BC, SELFPAY ==
[2024-05-03] VITALS (22 sets, daily range): BP systolic 136–172; BP diastolic 55–106; PULSE 58–71; RESP 0–26; TEMP 36.5; O2SAT 93–98; BMI 28.4
--- OUTSIDE RECORDS SUMMARY | 2024-05-03 10:45 | XMS_ITS | Clinical Summary ---
Author Organization [facility] Address [address] [place] [address] Care Team Providers Care Baked And Graphite Inspector Name Role Phone Unavailable Primary Care Provider Unavailabl e Source Comments You are receiving this document as you are listed as the primary care provider,follow-up provider, or the patient has been referred to you for consultation.This is in compliance with the Medicare and[facility] Hospital[facility] EHR Incentive Program,which states Providers who transition their patient to another setting of careor provider of care or refers their patient to another provider of care shouldprovide summary care record for each transition of care or referral. [facility] Allergies Active Allergy Reactions Criticality Noted Date Comments Dexamethasone Edema,generalized,Ot her, see comments Low 11/22/2019 Periorbital edema Gluten Meal Diarrhea High 09/07/2015 Neomycin Edema,generalized,Ot her, see comments Low 11/22/2019 Periorbital edema Polymyxin B Edema,generalized,Ot her, see comments Low 11/22/2019 Periorbital edema Simvastatin Myalgias 09/07/2015 Leg cramps Tizanidine Hypotension 07/12/2020 Medications nitroglycerin (NITROSTAT) 0.4 MG sublingual tablet Once 2 Active lisinopril (ZESTRIL) 30 MG tablet Daily Active fluticasone propionate (FLONASE) 50 MCG/ACT nasal solution Daily Active alirocumab (PRALUENT) 150 MG/ML pen injector Inject 150 mg subcutaneously. 2 Active aspirin 81 MG chewable tablet Daily Acti ve Coenzyme Q10 100 MG Active sulfaSALAzine (AZULFIDINE) 500 MG tablet Take 500 mg by mouth daily. Active tofacitinib Citrate (XELJANZ) 5 MG TABS Take 5 mg by mouth two times a day. 2 Active levothyroxine (SYNTHROID) 88 MCG tablet Take 1 Tablet (88 mcg) by mouth daily. 90 Tablet 3 2 Active dulaglutide (TRULICITY) 1.5 MG/0.5ML injection pen Trulicity 1.5 mg/0.5 mL subcutaneous pen injector Active Cetirizine HCl 10 MG/ML SOLN Take 10 mg by mouth daily. 5 Active gabapentin (NEURONTIN) 300 MG capsule Take 300 mg by mouth daily. 6 Active Active Problems Problem Noted Date Diagnosed Date HESTER (nonalcoholic steatohepatitis) 10/10/2021 Allergic rhinitis 08/15/2021 Anxiety 08/15/2021 Depression 08/15/2021 DOWNING (dyspnea on exertion) 08/15/2021 History of cancer of vulva 08/15/2021 History of migraine 08/15/2021 History of non-ST elevation myocardial infarctio n (NSTEMI) 08/15/2021 History of total abdominal hysterectomy 08/16/19 22 History of vitamin D deficiency 08/15/2021 Insomnia [...] History of tonsillectomy and adenoidectomy 08/13 Immunizations Immunization Administration Dates Next Due DTaP 07/27/2007 Flu Vac (3+ yrs) 11/30/2012, 2,11/27/2010,2009,02/02/2009,01/10/2008 Flu Vac Preserv Free (3+yrs) 02/02/2009 Flublok (RIV4) 01/10/2019 Influenza IIV4 (Quadrivalent ) 0.5mL (22375) 01/10/2019,01/07/2018,12/31/2016,2015,12/28/2014,11/30/2013 Influenza IIV4 (Quadrivalent ) Fluzone, 65+ Yrs 11/22/2020,01/19/2020 Influenza aIIV3 65+ Years (Fluad) 01/07/2018 Influenza, Unspecified Formulation 02/02/2009, PCV13 (Prevnar) 01/07/2018 PPSV23 (Pneumovax) 02/13/2010 Pfizer Monovalent 12+ Purple Top 02/12/2021,04/0 04/2020,05/12/2020 Tdap 07/27/2007 Zoster RZV (Shingrix) 10/16/2019,03/10/2019 Social History Tobacco Use Types Packs/Day Years Used Date Smoking Tobacco: Former Cigarettes Smokeless Tobacco: Never Tobacco Cessation:Counseling Given: Not Answered Alcohol Use Standard Drinks/Week Comments Not Currently 0 (1 standard drink = 0.6 oz pur e alcohol) Comments Unknown Sex and Gender Information Value Date Recorded Sex Assigned at Female 08/23/2021 4:53 PM CDT Legal Sex Female 1:14 PM CDT Gender Identity Female 08/23/2021 4:53 PM CDT Sexual Orientation Not on file Last Filed Vital Signs Vital Sign Reading Time Taken Comments Blood Pressure 93/52 08/21/2021 9:45 AM CDT Pulse 75 08/21/2021 9:45 AM CDT Temperature 36.9 C (98.4 F) 08/21/2021 7:16 AM CDT Respiratory Rate 16 08/21/2021 8:40 AM CDT [...] - Tdap) 07/26/2017 07/27/2007, 07/26 Diabetes: HGBA1C 07/07/2018 01/07/2018, 03/2013, 06/08/2013 Diabetes: Creatinine 10/09/2022 10/09/2021 Pneumococcal 50+ Yrs (3 of 3 - PCV) 01/07/2023 01/07/2018, 02/13/2010 COVID-19 Vaccine (4 - season) 2023 02/12/2021, 06/02/2020, 05/12/2020 Influenza (#1) 2023 11/22/2020, 12/31, 01/10/2019, Additional history exists RSV (1 - 1-dose 75+ series) 01/24/2027 Zoster/Shingles Completed 10/16/2019, 03/10/2019 HepA Aged Out [...] on patient's age to complete this topic Meningococcal B Aged Out No longer el igible based on patient's age to complete this topic Procedures Procedure Name Priority Date/Time Associated Diagnosis Comments CREATININE / GFR Routine 10/09/2021 1:50 PM CDT HESTER (nonalcoholic steatohepatitis) from Last 3 Months or Most Recently Relevant to Health Maintenance Results * Creatinine / GFR (10/09/2021 1:50 PM CDT) Creatinine 0.90 0.55 - 1.02 mg/dL 10/09/2021 3:25 PM CDT [facility] GFR, Estimated >60 >60 mL/min/1.7 3m2 10/09/2021 3:25 PM CDT [facility] Blood Venipuncture / Unknown 10/09/2021 1:50 PM CDT 10/09/2021 1:50 PM CDT us Sushila Tapia APRN, [facility] Final Result [facility] [address] [place] [address], [facility] [phone] from Last 3 Months or Most Recently Relevant to Health Maintenance Insurance [facility] [address] [address] MEDICARE MANAGED CARE [facility]
--- OUTSIDE RECORDS SUMMARY | 2024-05-03 10:45 | XMS_ITS | Clinical Summary ---
Author Organization [facility] Address [address] [place] [address] Care Team Providers Care Hand Paint Mixer Name Role Phone Unavailable Primary Care Provider Unavailabl e Source Comments Patient records contain information from all sites at [facility]. For routine questions regarding patient records, call [phone] during business hours, M-F 8:00 AM - 5:00 PM Central Time. Record requests for emergency care only can be directed to [phone] at any time.[facility] Allergies Active Allergy Reactions Criticality Noted Date Comments Neomycin-Polymyxin B-Dexameth Edema (Reselect Reaction) 05/27/2022 Medications cetirizine (ZyrTEC) 10 mg tablet Take 1 tablet by mouth daily. 9 Active dulaglutide (Trulicity) 1.5 mg/0.5 mL pen injector injection Inject 1.5 mg under the skin over 168 hr. 1 Active lisinopriL (PRINIVIL,ZESTR IL) 30 mg tablet Take 30 mg by mouth. 1 Active sulfaSALAzine (AZULFIDINE) 500 mg tablet Take 2 tablets by mouth 2 (two) times a day. 5 Active sulfaSALAzine (AZULFIDINE) 500 mg tablet Take 500 mg by mouth daily. Active co-enzyme Q-10 (CO Q-10) 100 mg capsule Take 100 mg by mouth. Active tofacitinib (XELJANZ) 5 mg tablet Take 1 tablet by mouth 2 (two) times a day. 6 Active prednisoLONE acetate (PRED FORTE) 1 % ophthalmic suspension prednisolone acetate 1 % eye drops,suspension Active omega-3 fatty acids-fish oil 684-1,200 mg capsule,delayed release(DR/EC) Take 2000 mg (of kothari ingredients EPA + DHA) 2 times per day 6 Active omeprazole (PriLOSEC) [address] capsule Take 20 mg by mouth at bedtime as needed. 0 Active nitroglycerin (NITROSTAT) 0.[address] 0.4 mg under the tongue every 2 (two) hours as needed. 2 Active metroNIDAZOLE (METROCREAM) 0.75 % cream Apply topically. 7 Active levothyroxine (SYNTHROID, LEVOTHROID) 88 mcg tablet Take 88 mcg by mouth daily. 3 Active levothyroxine (SYNTHROID, LEVOTHROID) 88 mcg tablet Take 1 tablet by mouth daily. 4 Active gabapentin (NEURONTIN) 300 mg capsule Take 300 mg by mouth daily. 6 Active icosapent ethyL (VASCEPA) 1 gram capsule capsule Take 2 g by mouth. 2 Active Active Problems Problem Noted Date Diagnosed Date Arthritis Rheumatoid 10/06/2012 Overview (07/22/2016): Arthritis, rheumatoid* Immunizations Immunization Administration Dates Next Due DTaP (Infanrix, Tripedia) 07/27/2007 Influenza, Unspecified 02/02/2009,12/31/2007 Social History Tobacco Use Types Packs/Day Years Used Date Smoking Tobacco: Unknown Nutrition Answer Date Recorded Nutrition: EVOO Fat Source Unknown 05/05 Nutrition: Servings of Fruits/Vegetables per Day Not on file 05/05/2022 Dental Answer Date Recorded Dental: Regular Dentist Unknown 05/06/19 23 Comments Unknown Sex and Gender Information Value Date Recorded Sex Assigned at Not on file Legal Sex Female 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 Gender Identity Not on file Sexual Orientation [...] Colonography 1950 Cologuard 1950 FIT 1950 Hepatitis B Screening 1950 Hepatitis C Screening 1950 Mammogram 1950 Pneumococcal vaccine (50+ years) (3 of 3 - PPSV23, PCV20 or PCV21) 03/04/2018 01/07/2018, 02/13/2010 Thyroid Stimulating Hormone (TSH) test for thyroid function 01/07/2019 01/07/2018 Creatinine Level (Kidney Function Test) 03/25/2021 03/25/2020, 03/24/2020, 03/23/2020, Additional history exists Potassium Level 03/25/2021 03/25/2020, 03/03, 03/23/2020, Additional history exists Sodium Level 03/25/2021 03/25/2020, 03/03, 03/23/2020, Additional history exists Colonoscopy 11/30/2021 12/01/2011 Colorectal Cancer Screening 11/30/2021 Fasting Glucose for Diabetes Screening 03/25/2023 03/25/2020, 03/24/2020, 03/23/2020, Additional history exists COVID-19 Vaccine ( season) 2023 12/03/2021, 02/12/2021, 06/02/2020, Additional history exists Influenza Vaccine (#1) 2023 , 12/03/2021, 11/22/2020, Additional history exists Depression Screening (Annual PHQ-2) 03/02/2024 Fall Risk Screen (Annual) 03/02/2024 DTaP,Tdap,and Td Vaccines (3 - Td or Tdap) 07/29/2032 07/29/2022, 07/27/2007, 07/27/2007 Zoster Vaccines Completed 10/16/2019, 03/10/2019 HPV Vaccines Aged Out No longer eligi ble based on patient's age to complete this topic IPV Vaccines Aged Out No longer eligi ble based on patient's age to complete this topic Insurance [facility] MEDICARE Advance Directives For more information, please contact: [phone] Documents on File Type Date Recorded Patient Project Superintendent Expl 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
--- OUTSIDE RECORDS SUMMARY | 2024-05-03 10:45 | XMS_ITS | Continuity of Care Document ---
Author Organization [facility] Address [address] [place] [address] Phone Care Team Providers Care Armor Reconnaissance Specialist Name Role Phone Leyla SRIVASTVAA, PhD, Javi Unavailable Unavai lable Allergies, Adverse Reactions, Alerts Substance Reaction Status Criticality tizanidine Active No Information gluten Active No Information Lnbknwo-TGJ-YsB Reductase Inhibitors Acti ve No Information POLYMYXIN [...] C, [address], [place], [id number], [place] tel:[phone] [facility] [place] Arthrodesis status Leyla Caldwell. [facility], [address], [place], [address], [place]. tel:[phone] Referring Provider: Glenn Francisco, [address], [address]. tel:[phone] Office/Outpat ient Visit,Est, Mod [facility] C, [address], [place], [id number], [place] tel:[phone] [facility] Arthrodesis status Leyla Caldwell. [facility] [place], [address], [place], [address], [place]. [phone] Referring Provider: Glenn Francisco, [facility] [address] [place], [address]. tel:[phone] [facility], [address], [place], [place], [id number], [place] tel:[phone] [facility] Arthrodesis status Leyla Caldwell. [facility] [place], [address], [place], [address], [place]. [phone] Referring Provider: Glenn Francisco, [facility] [address] [place], [address]. tel:[phone] [facility], [address], [place], [id number], [place] tel:[phone] [facility] Arthrodesis status Leyla Caldwell. [facility] [place], [address], [place], [address], [place]. [phone] Referring Provider: Glenn Francisco, [facility] [address] [place], [address]. tel:[phone] [facility], [address], [place], [id number], [place] tel:[phone] [facility] No Information Chris Bailey. [facility] [place], [address], [facility] [place], [id number] , [place]. [phone] Referring Provider: Glenn Francisco, [facility] [address] [place], [address]. tel:[phone] [facility], [address], [place], [id number], [place] tel:[phone] [facility] No Information Leyla Caldwell. [facility], [address], [place], [address], [place]. tel:[phone] Referring Provider: [facility] [address] [place], [address]. tel:[phone] Office/Outpat ient Visit,[facility], [facility], [address], [place], [place], [id number], [place] tel:[phone] [facility] - [place] Spondylolisth esis, lumbar region Leyla Caldwell. [facility], [address], [place], [address], [place]. tel:[phone] Referring Provider: [facility] [address] [place], [address]. tel:[phone] [facility], [address], [facility] [place], [place], [id number], [place] tel:[phone] [facility] - [place] Low back pain Leyla Caldwell. [facility], [address], [place], [address], [place]. tel:[phone] Family History Family Member Type Diagnosis Age At Onset No Information Payers Payer name Insurance type Covered [place] L[place] long[place]) [place] [id number] Medicare [facility] [id number] Social History Type Description Quantity Date [...]
--- OUTSIDE RECORDS SUMMARY | 2024-05-03 10:45 | XMS_ITS | Clinical Summary ---
Author Organization [employer] Address [address] [place] [id number] Care Team Providers Care Food Demonstrator Name Role Phone Glenn Francisco MD Primary Care Provider + Allergies Active Allergy Reactions Criticality Noted Date Comments Dexamethasone Edema 03/21/2020 Periorbital edema Gluten Diarrhea 09/07/2015 Neomycin-Polymyxin B-Dexameth Rash 2008 Periorbital edema Neomycin Edema 03/21/2020 Periorbital edema Polymyxin B Edema 03/21/2020 Periorbital edema Simvastatin Myalgia 09/07/2015 Leg cramps Gtwkvrf-Mdv-Opi Reductase Inhibitors Myalgia 11/30/2013 Leg cramps Sunlight Rash 12/28/2006 Tizanidine Hypotension 07/12/2020 Icosapent Ethyl Nausea Only 04/28/2024 Medications aspirin 81 mg tablet Take 1 tablet by mouth once daily with a meal. 0 10/16/19 10 Active lancets (MICROLET LANCET) Test 3 times a day 300 Each 1 08/25/19 12 Active blood sugar diagnostic (ASCENSIA CONTOUR) strip Test 3 times a day 300 Each 12 12/01/19 13 Active tofacitinib (XELJANZ) 5 mg tabIndications:Rhe umatoid arthritis, involving unspecified site, unspecified rheumatoid factor presence Take 1 tablet by mouth 2 times daily. 0 05/07/19 16 Active sulfaSALAzine (SULFAZINE EC) 500 mg extended-release tablet Take 1 Tab by mouth 2 times daily. 0 06/12/19 16 Active eratmzi-zqujiawk-p utalbital, 325-40-50 mg, (FIORINAL) capsuleIndications :Migraine with aura and without status migrainosus, not intractable Take 1 capsule by mouth every 4 hours if needed for Migraine. Max 4 capsules per day. 30 capsule 02/03/20 17 Active metroNIDAZOLE 0.75 % creamIndications:R osacea Apply topically to affected area(s) 2 times daily. to face 45 g 2 02/03/20 17 Active ketoconazole 2% topical (NIZORAL) cream Apply topically to affected area(s) 2 times daily. 60 g 01/08/20 18 Active gabapentin (NEURONTIN) 300 mg capsuleIndications :Myalgia TAKE 2 CAPSULES BY MOUTH AT BEDTIME 180 capsule 2 04/01/19 19 Active ketotifen (ZADITOR) 0.025 % (0.035 %) ophthalmic solutionIndication s:Allergic conjunctivitis of both eyes Place 1 Drop into both eyes 2 times daily. 1 Bottle 2 04/09/19 19 Active cetirizine (ZYRTEC) 10 mg tablet Take 1 tablet by mouth once daily. 0 07/08/19 19 Active zolpidem (AMBIEN) 5 mg tablet TAKE 1 TABLET BY MOUTH EVERY DAY AT BEDTIME NEEDED FOR SLEEP 0 12/21/19 19 Active escitalopram oxalate (LEXAPRO) 20 mg tabletIndications: Depression, unspecified depression type Take 1 tablet by mouth once daily. 90 tablet 2 08/23/19 20 Active omeprazole (PRILOSEC) 20 mg Delayed-Release capsule Take 20 mg by mouth once daily if needed. 02/23/20 20 Active levothyroxine (SYNTHROID) 88 mcg tablet Take 88 mcg by mouth once daily. 03/03/19 21 Active fluticasone (50 mcg per actuation) nasal solution (FLONASE) Inhale 2 Sprays in the nostril(s) once daily. Active coenzyme q10 100 mg cap Take 100 mg by mouth once daily. Active magnesium citrate 100 mg tab Take 300 mg by mouth 2 times daily. In afternoon and again in the evening Active Trulicity 1.5 mg/0.5 mL injection Inject 1.5 mg subcutaneous once weekly. 06/06/19 21 Active Ca Msh-L5-R-Mgox-stro n-sod bor (TheraCal D2000) 250 mg calcium -500 unit tab Take 2 Tablets by mouth once daily. 0 07/13/19 21 Active methotrexate (RHEUMATREX) 2.5 mg tabletIndications: rheumatoid arthritis As directed 6 Tablets (15 mg) once weekly. Take 8 tablets weekly (20 mg) 0 07/13/19 21 Active folic acid 1 mg tabletIndications: Rheumatoid arthritis, seropositive (HC) Take 2 Tablets (2 mg) by mouth once daily. 90 tablet. 2 07/13/19 21 Active lisinopriL (PRINIVIL; ZESTRIL) 30 mg tabletIndications: Hypertension Take 1 Tablet (30 mg) by mouth once daily. Due for cardiology appointment, please call to schedule for further refills. 30 tablet. 08/22/19 21 Active prednisoLONE acetate 1% ophthalmic (ECONOPRED PLUS, PRED FORTE, OMNIPRED) suspension prednisolone acetate 1 % eye drops,suspensio n Active nitroglycerin (NITROSTAT) 0.4 mg sublingual tabletIndications: ASCVD (arteriosclerotic cardiovascular disease) Place 1 Tablet (0.4 mg) under the tongue every 5 minutes if needed for Chest Pain. 25 Tablet 1 04/17/19 24 Active evolocumab (Repatha Sherman) 140 mg/mL subcutaneous pen injectorIndication s:Hyperlipidemia, unspecified hyperlipidemia type Inject 1 mL (140 mg) subcutaneous every 2 weeks. Inject into abdomen, thigh, or upper arm; rotate injection sites. 6 mL 2 5 11:47 AM DIRECTOR OF ANNUAL GIVING 07/17/19 24 Active isosorbide mononitrate (IMDUR) 30 mg extended release tablet 24 HourIndications:St able angina Take 1 Tablet (30 mg) by mouth once daily. 90 Tablet 3 04/28/19 25 Active Fish Oil-[place]-3 Fatty Acids (OMEGA 3 FISH OIL) 684-1,200 mg capsuleIndications :Dyslipidemia Take 2000 mg (of kothari ingredients EPA + DHA) 2 times per day 0 09/07/19 16 025 Discontin ued(*Med complete/ Regimen complete/ Level of care change) icosapent ethyL (Vascepa) 1 gram capsuleIndications :ASCVD (arteriosclerotic cardiovascular disease) Take 2 g by mouth 2 times daily with meals. 60 Capsule 3 04/03/19 22 025 Discontin ued(*Med complete/ Regimen complete/ Level of care change) Active Problems Problem Noted Date Diagnosed Date [...] of diabetes mellitus, type II 09/24/2009 07/06/2016 Overview (04/26/2014): Much improved with weight loss and dietary changes. No longer on meds. Other and unspecified hyperlipidemia 11/29/2006 12/28/2014 Hypothyroidism 07/27/2006 12/28/2014 ATOPIC DERMATITIS 07/27/2006 09/23/2015 Unspecified essential hypertension 07/27/2006 12/28/2014 Abnormal cardiovascular stress test 09/23/2015 Dyslipidemia 07/06/2016 Chest pain 09/23/2015 S/P coronary angiogram 09/22 Encounters Date Type Department Care Team Description 04/28/2024 9:30 AM DIRECTOR OF ANNUAL GIVING Office Visit [facility] [address] [place] [address] Enzo Gavin MD Arrived 04/27/2024 Travel from Last 3 Months Immunizations Name Administration Dates Next Due COVID-19 vaccine ([employer] 30mcg/0.3mL) CHERYL MOSS 06/02/2020,05/12/2020 DTaP 07/27/2007 Influenza RIV4 (Age 18+ [...] Asthma Daughter Heart Disease Father Hypertension Father PR age 80 Diabetes Maternal Aunt Heart Disease Maternal Grandfather ? PR Stroke Maternal Grandfather ? Cancer-breast Maternal Grandmother [...] Paying Living Expenses Not on file 03/02/2021 Comments No Sex and Gender Information Value Date Recorded Sex Assigned at Not on file Legal Sex Female 5:20 AM DIRECTOR OF ANNUAL GIVING Gender Identity Not on file Sexual Orientation Not on file Occupation Industry Job Start Date Job End Date Kenny Not on file Not on file Not on file Obstetrics History Para Term [...] F Vag Livin g 9 9 [employer] Good Delivery Location:[facility] 1980 40w 0d 2.66 kg (5 lb 14 oz) M Vag Livin g 8 9 [place] Delivery Location:[facility] 1980 40w 0d VAGINA L FORC Livin g 4 5 [place] Delivery Location:[facility] Last Filed Vital Signs Vital Sign Reading Time Taken Comments Blood Pressure 112/70 04/11/2022 10:07 AM DIRECTOR OF ANNUAL GIVING Pulse 66 04/11/2022 10:07 AM DIRECTOR OF ANNUAL GIVING Temperature 37.2 C (99 F) 07/18/2020 8:30 AM CDT Respiratory Rate 16 04/11/2022 10:0 7 AM DIRECTOR OF ANNUAL GIVING Oxygen Saturation 97% 04/11/2022 10: 07 AM DIRECTOR OF ANNUAL GIVING Inhaled Oxygen Concentration - - Weight 68.9 kg (151 lb 14.4 oz) 023 10:07 AM DIRECTOR OF ANNUAL GIVING Height 151.3 cm (4' 11.55) 04/11/2022 10:07 AM DIRECTOR OF ANNUAL GIVING Body Mass Index 30.12 04/11/2022 10:07 AM DIRECTOR OF ANNUAL GIVING Plan of Treatment Health Maintenance Due Date Last Done Comments RSV vaccine for adults or (1 - Risk 60-74 years 1-dose series) 2012 Tetanus booster 07/26/2017 07/27/2007 Depression screening for age 12+ 01/07/2019 01/07/2018, 01/07/2018, 01/07/2017, Additional history exists Medicare Wellness for age 65+ 01/08/2019 01/07/2018 Colonoscopy through age 75 01/08/202201/08, 12/28/2006, 12/28/2006 Lipids for age 45-75 01/07/2023 01/07/2018, 05/13/2017, 12/05/2016, Additional history exists Pneumococcal series for age 50+ (3 of 3 - PCV20 or PCV21) 01/07/2023 01/07/2018, 02/13/2010 BMI (ht and wt on same day) for age 18+ 04/11/2023 04/11/2022, 04/03/2021, 07/18/2020, Additional history exists COVID-19 vaccine series ( season) 2023 12/03/2021, 02/12/2021, 06/02/2020, Additional history exists Influenza for age 65+ 11/01/2023 01/19/2020 , 01/10/2019, 01/07/2018, Additional history exists Mammogram for age 45-75 03/04/2024 03/04/19 24, 01/27/2022, 2021, Additional history exists Tdap Completed 07/27/2007 Hepatitis C screening for ag e 18-79 Completed 08/17/2014 Zoster (shingles) series for age 50+ Completed 10/16/2019, 03/10/2019 DEXA/DXA scan for age 65+ Completed 2019 (Completed outside of [facility]), 06/30/2016, 06/30/2016, Additional history exists Medical Devices Implanted Type Area Karate Instructor Device Identifier Shelf Expiration Date Model / Serial / Lot Bone 1-4mm 60cc Medtronic Fine Canclls Freeze Dried - [id number] Implanted:Qty : 1 on 03/22/2020 by Javi Mayer MD at [facility] Spine Medtronic Spine/Ortho 08/12/2024 [id number] / [id number] / [id number] Globus 6.5 X 40mm Creo Threaded Implanted:Qty : 4 on 03/22/2020 by Javi Mayer MD at [facility] Bilateral: Spine [employer] [id number] / / Threaded Locking Cap Implanted:Qty : 4 on 03/22/2020 by Javi Mayer MD at [facility] Spine [employer] [id number] / / 40 Mm Kenny Curved Implanted:Qty : 2 on 03/22/2020 by Javi Mayer MD at [facility] Lumbar [employer] [id number] / / 9mm Sustain Arch- Peek Implanted:Qty : 1 on 03/22/2020 by Jaiv Mayer MD at [facility] Lumbar [employer] [id number] / / Procedures Procedure Name Priority Date/Time Associated Diagnosis Comments XR MAMMO BERNADETTE BILAT SCREEN Routine 03/04/2023 9:26 AM DIRECTOR OF ANNUAL GIVING Encounter for other screening for malignant neoplasm of breast LIPID PANEL W REFLEX MEASURED LDL Routine 01/07/2018 8:35 AM DIRECTOR OF ANNUAL GIVING Hyperlipidemia, unspecified hyperlipidemia type SCAN-BONE DENSITOMETRY DEXA 06/30/2016 12:00 AM CDT ANTI HCV Routine 08/17/2014 11:11 AM CDT Rheumatoid arthritis(714.0) (HC) Encounter for long-term (current) use of other medications COLONOSCOPY SCREENING Routine 01/09/2012 Special screening for malignant neoplasms, colon from Last 3 Months or Most Recently Relevant to Health Maintenance Results * XR MAMMO BERNADETTE BILAT SCREEN (03/04/2023 9:26 AM DIRECTOR OF ANNUAL GIVING) Anatomical Region Laterality Modality BREASTS, Breast Left, Breast Right Bilateral Mammography Impressions 03/04/2023 9:55 AM DIRECTOR OF ANNUAL GIVING There is no radiographic evidence for malignancy. Recommend annual mammograms. MAMMOGRAM ASSESSMENT: ACR 1 Negative PATIENTS: You will also receive a letter with your examination results in an easy to read format. If you have questions about your results, please contact your referring provider. Narrative 03/04/2023 9:55 AM DIRECTOR OF ANNUAL GIVING For Patients: As a result of the 21st Century Cures Act, medical imaging exams and procedure reports are released immediately into your electronic medical record. You may view this report before your referring provider. If you have questions, please contact your health care provider. XR MAMMO BERNADETTE BILAT SCREEN [[id number]] CLINICAL HISTORY: This is an asymptomatic 73 y.o. patient. INDICATION FOR EXAM: Mammogram Screening. TECHNIQUE: CC & MLO views were obtained. This study was evaluated with the assistance of Computer-Aided Detection. Breast Tomosynthesis was used in interpretation. COMPARISON FILM: Yes 01/27/22 FINDINGS: The breasts have scattered areas of fibroglandular density. There are no dominant masses, suspicious micro calcifications or areas of architectural distortion. us Glenn Francisco MD MAMMO Final Re sult * (ABNORMAL) LIPID PANEL W REFLEX MEASURED LDL (01/07/2018 8:35 AM DIRECTOR OF ANNUAL GIVING) CHOLESTEROL,TOTAL 174 100 - 199 mg/dL 01/07/2018 9:17 AM DIRECTOR OF ANNUAL GIVING [facility] TRIGLYCERIDES 246(H) <150 mg/dL 01/07/2018 9:17 AM DIRECTOR OF ANNUAL GIVING [facility] HDL CHOLESTEROL 65 >40 mg/dL 8 9:17 AM DIRECTOR OF ANNUAL GIVING [facility] NON-HDL CHOLESTEROL 109 <145 mg/dl 01/07/2018 9:17 AM DIRECTOR OF ANNUAL GIVING [facility] CHOL/HDL RATIO 2.68 <4.50 01/07/2018 9:17 AM DIRECTOR OF ANNUAL GIVING [facility] LDL CHOLESTEROL 60 <=130 mg/dL 01/07/2018 9:17 AM DIRECTOR OF ANNUAL GIVING [facility] PROVIDER ORDERED STATUS RANDOM 01/07/2018 9:17 AM DIRECTOR OF ANNUAL GIVING [facility] Blood BLOOD SPECIMEN / Unknown Venipuncture / Unknown 01/07/2018 8:35 AM DIRECTOR OF ANNUAL GIVING 01/07/2018 8:35 AM DIRECTOR OF ANNUAL GIVING us Glenn Francisco MD CHEMISTRY [place] [address] * SCAN-BONE DENSITOMETRY DEXA (06/30/2016 12:00 AM CDT) Anatomical Region Laterality Modality Other us Scanner OTHER Final Result * ANTI HCV (08/17/2014 11:11 AM CDT) HEPATITIS C ANTIBODY Non-Reacti ve Non-Reacti ve 08/17/2014 8:27 PM CDT [facility] Blood specimen (specimen) BLOOD SPECIMEN / Unknown Venipuncture / Unknown 08/17/2014 11:11 AM CDT 08/17/2014 11:11 AM CDT Narrative [facility] - 08/17/2014 8:27 PM CDT Antibodies to HCV not detected; does not exclude the possibility of exposure to HCV. Glenn Francisco MD SEND OUTS Final Re sult [facility] [address] [place] [address], * COLONOSCOPY SCREENING (01/09/2012) Glenn Francisco MD GI PROCEDURE ORD Final R esult from Last 3 Months or Most Recently Relevant to Health Maintenance Insurance [employer] [place] BLUE MR PB ONLY MEDICARE PART B HB ONLY [employer] [place] BLUE HB ONLY MEDICARE PART A HB ONLY [facility] Advance Directives Documents on File Type Date Recorded Patient Medical Receptionist Medical Assistant Expl anation Healthcare Directive 03/09/2020 021 * [...] 7:42 AM 04/21/2014 12:02 PM Care Teams Food Demonstrator Relationship Specialty Start Date End Date Glenn Francisco MD [address] [place] [address] PCP - General Family Practice 07/07/18
--- OUTSIDE RECORDS SUMMARY | 2024-05-03 10:45 | XMS_ITS | Continuity of Care Document ---
Author Organization [facility] Address [address] [place] [address] Phone Care Team Providers Care Inside Sales Account Executive Name Role Phone Kb SRIVASTAVA, Mario Unavailable Unavailable Allergies, Adverse Reactions, Alerts Substance Reaction Status Criticality POLYMYXIN B SULFATE Active No Infor mation neomycin Active No Information dexamethasone Active No Information Medications Medication Instructions Dosage Effective Dates (start - stop) Status Comments Xeljanz 5 mg tablet Take 1 tablet by mouth twice a day - Active sulfaSALAzine 500 MG Oral Tablet TAKE 1 TABLET BY MOUTH ONCE DAILY AFTER A MEAL - Active OZEMPIC (unknown strength) inject by subcutaneous route every week on the same day of each week Not Available - Active terbinafine HCl 250 mg tablet 1 week on, 3 weeks off - Active glimepiride 2 mg tablet take 1 tablet by oral route every day 2 MG - Active REPATHA SURECLICK (unknown strength) inject 1 milliliter by subcutaneous route every 2 weeks in the abdomen, thigh, or outer area of upper arm (rotate sites) Not Available - Active CO Q-10 (unknown strength) take 1 Capsule by Oral route every day Not Available - Active VITAMIN B-12 (unknown strength) take 1 Tablet by Oral route every day Not Available - Active levothyroxine 88 mcg tablet take 1 tablet by oral route every day 88 MCG - Active ketoconazole 2 % topical cream apply by topical route 2 times every day to the affected area(s) 0.00 - Active [id number] AFFEINE (unknown strength) as needed Not Available - Active aspirin 81 mg tablet,delayed release take 1 tablet by oral route every day 81 MG - Active TheraCal D4000 250 mg calcium-1,000 unit tablet 2 tabs twice a day - Active Flonase Allergy Relief 50 mcg/actuation nasal spray,suspension inhale 1 - 2 spray by intranasal route every day in each nostril 50 MCG - Active lisinopril 30 mg tablet take 1 tablet by oral route every day 30 MG - Active Nitrostat 0.[address] 1 tablet by sublingual route at the 1st sign of attack; may repeat every 5 min until relief; if pain persists after 3 tablets in 15 min, prompt medical attention is recommended 0.4 MG - Active Zyrtec 10 mg tablet take 1 Tablet by oral route every day 10 MG - Active Procedures Procedure Date Office/Outpatient Visit, Est Complex e/m visit add on Routine Venipuncture Assay Of Serum Albumin Assay Of Creatinine Transferase (Ast) (Sgot) Alanine Amino (Alt) (Sgpt) Assay Of Ck (Cpk) Complete Cbc, Automated Office/Outpatient Visit, Est Complex e/m visit add on Routine Venipuncture Assay Of Serum Albumin Assay [...] [address], [place], [address], [place] tel:[phone] [facility] , No Information 5 Kb Martin. [facility] [address], [place], [address], [place]. tel:[phone] Office/Outpa tient Visit, Est [facility] , [address], [place], [address], [place] tel:[phone] [facility] , Rheumatoid arthritis (chief complaint) CounselingHi gh risk medication monitoringVi tamin D deficiencySe ropositive RAMyositisOs teopeniaFatt y (change of) liver, not elsewhere classifiedPa in 5 Kb Martin. [facility] [address], [place], [address], [place]. tel:[phone] Referring Provider: Mario Leary, [facility] [address], [place], [address]. tel:[phone] [facility] , [address], [place], [address], [place] tel:[phone] [facility] No Information 4 Kb Martin. [facility] [address], [place], [address], [place]. tel:[phone] Office/Outpa tient Visit, Est [facility] , [address], [place], [address], [place] tel:[phone] [facility] , Rheumatoid arthritis (chief complaint) CounselingHi gh risk medication monitoringVi tamin D deficiencySe ropositive RAMyositisOs teopeniaFatt y (change of) liver, not elsewhere classifiedPa in 4 Kb Martin. [facility] [address], [place], [address], [place]. tel:[phone] Referring Provider: Mario Leary, [facility] [address], [place], [address]. tel:[phone] Office/Outpa tient Visit, Est [facility] , [address], [place], [address], [place] tel:[phone] [facility] , Rheumatoid arthritis (chief complaint) CounselingHi gh risk medication monitoringVi tamin D deficiencySe ropositive RAMyositisOs teopeniaFatt y (change of) liver, not elsewhere classifiedPa in 4 Kb Martin. [facility] [address], [place], [address], [place]. tel:[phone] Referring Provider: Mario Leary, [facility] [address], [place], [address]. tel:[phone] Office/Outpa tient Visit, Est [facility] , [address], [place], [address], [place] tel:[phone] [facility] , Rheumatoid arthritis (chief complaint) CounselingHi gh risk medication monitoringVi tamin D deficiencySe ropositive RAMyositisOs teopeniaFatt y (change of) liver, not elsewhere classified 3 Kb Martin. [facility] [address], [place], [address], [place]. tel:[phone] Referring Provider: Mario Leary, [facility] [address], [place], [address]. tel:[phone] Office/Outpa tient Visit, Est [facility] , [address], [place], [address], [place] tel:[phone] [facility] , Rheumatoid arthritis (chief complaint) CounselingHi gh risk medication monitoringVi tamin D deficiencySe ropositive RAMyositisOs teopeniaFatt y (change of) liver, not elsewhere classified 3 Kb Martin. [facility] [address], [place], [address], [place]. tel:[phone] Referring Provider: Mario Leary, [facility] [address], [place], [address]. tel:[phone] Office/Outpa tient Visit, Est [facility] , [address], [place], [address], [place] tel:[phone] [facility] , Rheumatoid arthritis (chief complaint) CounselingHi gh risk medication monitoringVi tamin D deficiencySe ropositive RAMyositisOs teopeniaFatt y (change of) liver, not elsewhere classified 3 Kb Martin. [facility] [address], [place], [address], [place]. tel:[phone] Referring Provider: Mario Leary, [facility] [address], [place], [address]. tel:[phone] Office/Outpa tient Visit, Est [facility] , [address], [place], [address], [place] tel:[phone] [facility] , Rheumatoid arthritis (chief complaint) Vitamin D deficiencySe ropositive RAMyositisOs teopeniaCoun selingHigh risk medication monitoringFa tty (change of) liver, not elsewhere classified 3 Kb Martin. [facility] [address], [place], [address], [place]. tel:[phone] Referring Provider: Mario Leary, [facility] [address], [place], [address]. tel:[phone] Office/Outpa tient Visit, Est [facility] , [address], [place], [address], [place] tel:[phone] [facility] , Rheumatoid arthritis (chief complaint) Vitamin D deficiencySe ropositive RAMyositisOs teopeniaCoun selingHigh risk medication monitoringFa tty (change of) liver, not elsewhere classifiedOt her low back pain Oct-2 2 Kb Martin. [facility] [address], [place], [address], [place]. tel:[phone] Referring Provider: Mario Leary, [facility] [address], [place], [address]. tel:[phone] Office/Outpa tient Visit, Est [facility] , [address], [place], [address], [place] tel:[phone] [facility] , Rheumatoid arthritis (chief complaint) Vitamin D deficiencySe ropositive RAMyositisOs teopeniaCoun selingHigh risk medication monitoringFa tty (change of) liver, not elsewhere classified 2 Kb Martin. [facility] [address], [place], [address], [place]. tel:[phone] Referring Provider: Mario Leary, [facility] [address], [place], [address]. tel:[phone] Office/Outpa tient Visit, Est [facility] , [address], [place], [address], [place] tel:[phone] [facility] , Rheumatoid arthritis (chief complaint) Vitamin D deficiencySe ropositive RAMyositisOs teopeniaElev ated liver enzymesCouns elingHigh risk medication monitoring 2 Kb Martin. [facility] [address], [place], [address], [place]. tel:[phone] Referring Provider: Mario Leary, [facility] [address], [place], [address]. tel:[phone] Office/Outpa tient Visit, Est [facility] , [address], [place], [address], [place] tel:[phone] [facility] , Rheumatoid arthritis (chief complaint) Vitamin D deficiencySe ropositive RAOA of 1st [facility] jointMyositi sOsteopeniaE levated liver enzymesCouns elingHigh risk medication monitoring 1 Kb Martin. [facility] [address], [place], [address], [place]. tel:[phone] Referring Provider: Mario Leary, [facility] [address], [place], [address]. tel:[phone] Office/Outpa tient Visit, Est [facility] , [address], [place], [address], [place] tel:[phone] [facility] , Rheumatoid arthritis (chief complaint) Vitamin D deficiencySe ropositive RAOA of 1st [facility] jointMyositi sOsteopeniaE levated liver enzymesHigh risk medication monitoringCo unseling 1 Kb Martin. [facility] [address], [place], [address], [place]. tel:[phone] Referring Provider: Mario Leary, [facility] [address], [place], [address]. tel:[phone] Office/Outpa tient Visit, Est [facility] , [address], [place], [address], [place] tel:[phone] [facility] , Rheumatoid arthritis (chief complaint) Vitamin D deficiencySe ropositive RAOA of 1st [facility] jointMyositi sOsteopeniaE levated liver enzymesHigh risk medication monitoringCo unseling 1 Kb Martin. [facility] [address], [place], [address], [place]. tel:[phone] Referring Provider: Mario Leary, [facility] [address], [place], [address]. tel:[phone] Office/Outpa tient Visit, Est [facility] , [address], [place], [address], [place] tel:[phone] [facility] , Rheumatoid arthritis (chief complaint) Vitamin D deficiencySe ropositive RAOA of 1st [facility] jointMyositi sOsteopeniaE levated liver enzymesHigh risk medication monitoringCo unselingBack pain 0 Kb Martin. [facility] [address], [place], [address], [place]. tel:[phone] Referring Provider: Mario Leary, [facility] [address], [place], [address]. tel:[phone] Office/Outpa tient Visit, Est [facility] , [address], [place], [address], [place] tel:[phone] [facility] , Rheumatoid arthritis (chief complaint) Vitamin D deficiencySe ropositive RABilateral knee OAOA of 1st [facility] jointMyositi sOsteopeniaE levated liver enzymesHigh risk medication monitoring 0 Kb Martin. [facility] [address], [place], [address], [place]. tel:[phone] Referring Provider: Mario Leary, [facility] [address], [place], [address]. tel:[phone] Office/Outpa tient Visit, Est [facility] , [address], [place], [address], [place] tel:[phone] [facility] , Rheumatoid arthritis (chief complaint) Vitamin D deficiencySe ropositive RABilateral knee OAOA of 1st [facility] jointMyositi sOsteopeniaE levated liver enzymesHigh risk medication monitoringPl jorge fasciitis 0 Kbovidio Martin. [facility] [address], [place], [address], [place]. tel:[phone] Referring Provider: Mario Leary, [facility] [address], [place], [address]. tel:[phone] Office/Outpa tient Visit, Est [facility] , [address], [place], [address], [place] tel:[phone] [facility] , Rheumatoid arthritis (chief complaint) OsteopeniaEl evated liver enzymesHigh risk medication monitoringOA of 1st [facility] jointVitamin D deficiencySe ropositive RABilateral knee OAMyositis 9 Kb Mario. [facility] [address], [place], [address], [place]. tel:[phone] Referring Provider: Mario Leary, [facility] [address], [place], [address]. tel:[phone] Office/Outpa tient Visit, Est [facility] , [address], [place], [address], [place] tel:[phone] [facility] , Rheumatoid arthritis (chief complaint) Vitamin D deficiencySe ropositive RABilateral knee OAMyositisOs teopeniaElev ated liver enzymesHigh risk medication monitoringOA of 1st [facility] joint 9 Kb Martin. [facility] [address], [place], [address], [place]. tel:[phone] Referring Provider: Mario Leary, [facility] [address], [place], [address]. tel:[phone] Office/Outpa tient Visit, Est [facility] , [address], [place], [address], [place] tel:[phone] [facility] , Rheumatoid arthritis (chief complaint) Vitamin D deficiencySe ropositive RABilateral knee OAMyositisOs teopeniaElev ated liver enzymesHigh risk medication monitoring 9 Kb Martin. [facility] [address], [place], [address], [place]. tel:[phone] Referring Provider: Mario Leary, [facility] [address], [place], [address]. tel:[phone] Office/Outpa tient Visit, Est [facility] , [address], [place], [address], [place] tel:[phone] [facility] , Rheumatoid arthritis (chief complaint) Vitamin D deficiencySe ropositive RABilateral knee OAMyositisOs teopeniaElev ated liver enzymesHigh risk medication monitoringFa tigueLateral epicondyliti s, unspecified elbow 8 Kb Martin. [facility] [address], [place], [address], [place]. tel:[phone] Referring Provider: Mario Leary, [facility] [address], [place], [address]. tel:[phone] Office/Outpa tient Visit, Est [facility] , [address], [place], [address], [place] tel:[phone] [facility] , Rheumatoid arthritis (chief complaint) Vitamin D deficiencySe ropositive RABilateral knee OAMyositisOs teopeniaHigh risk medication monitoringEl evated liver enzymes 8 Kb Martin. [facility] [address], [place], [address], [place]. tel:[phone] Referring Provider: Mario Leary, [facility] [address], [place], [address]. tel:[phone] Office/Outpa tient Visit, Est [facility] , [address], [place], [address], [place] tel:[phone] [facility] , Rheumatoid arthritis (chief complaint) Seropositive RABilateral knee OAMyositisOs teopeniaHigh risk medication monitoringVi tamin D deficiency 8 Kb Martin. [facility] [address], [place], [address], [place]. tel:[phone] Referring Provider: Mario Leary, [facility] [address], [place], [address]. tel:[phone] Office/Outpa tient Visit, Est [facility] , [address], [place], [address], [place] tel:[phone] [facility] , Rheumatoid arthritis (chief complaint) Seropositive RABilateral knee OAMyositisOs teopeniaHigh risk medication monitoring 8 Kb Martin. [facility] [address], [place], [address], [place]. tel:[phone] Referring Provider: Mario Leary, [facility] [address], [place], [address]. tel:[phone] Office/Outpa tient Visit, Est [facility] , [address], [place], [address], [place] tel:[phone] [facility] , Rheumatoid arthritis (chief complaint) Seropositive RABilateral knee OAMyositisOs teopeniaHigh risk medication monitoring Kb Martin. [facility] [address], [place], [address], [place]. tel:[phone] Referring Provider: Mario Leary, [facility] [address], [place], [address]. tel:[phone] Office/Outpa tient Visit, Est [facility] , [address], [place], [address], [place] tel:[phone] [facility] , Rheumatoid arthritis (chief complaint) Seropositive RABilateral knee OAMyositisOs teopeniaHigh risk medication monitoring Kb Martin. [facility] [address], [place], [address], [place]. tel:[phone] Referring Provider: Mario Leary, [facility] [address], [place], [address]. tel:[phone] Office/Outpa tient Visit, Est [facility] , [address], [place], [address], [place] tel:[phone] [facility] , Rheumatoid arthritis (chief complaint) Seropositive RABilateral knee OAMyositisOs teopeniaHigh risk medication monitoring Kb Martin. [facility] [address], [place], [address], [place]. tel:[phone] Referring Provider: Mario Leary, [facility] [address], [place], [address]. tel:[phone] [facility] , [address], [place], [address], [place] tel:[phone] [facility] , Osteopenia Kb Martin. [facility] [address], [place], [address], [place]. tel:[phone] Referring Provider: Mario Leary, [facility] [address], [place], [address]. tel:[phone] Office/Outpa tient Visit, Est [facility] , [address], [place], [address], [place] tel:[phone] [facility] , Rheumatoid arthritis (chief complaint) Seropositive RABilateral knee OAMyositisOs teopeniaHigh risk medication monitoring Kb Martin. [facility] [address], [place], [address], [place]. tel:[phone] Referring Provider: Mario Leary, [facility] [address], [place], [address]. tel:[phone] Office/Outpa tient Visit, Est [facility] , [address], [place], [address], [place] tel:[phone] [facility] , Rheumatoid arthritis (chief complaint) Seropositive RABilateral knee OAMyositisOs teopeniaHigh risk medication monitoring 6 [facility] Mario. [facility] [address], [place], [address], [place]. tel:[phone] Referring Provider: Mario Leary, [facility] [address], [place], [address]. tel:[phone] Office/Outpa tient Visit, Est [facility] , [address], [place], [address], [place] tel:[phone] [facility] , Rheumatoid arthritis (chief complaint) Seropositive RAOsteopenia MyositisHigh risk medication monitoringBi lateral knee OABursitis of unspecified shoulderTroc hanteric bursitis of left hip 6 Kbovidio Martin. [facility] [address], [place], [address], [place]. tel:[phone] Referring Provider: Mario Leary, [facility] [address], [place], [address]. tel:[phone] Office/Outpa tient Visit, Est [facility] , [address], [place], [address], [place] tel:[phone] [facility] , Rheumatoid arthritis (chief complaint) Seropositive RAOsteopenia MyositisHigh risk medication monitoringBi lateral knee OA Apr- 6 [facility] Mario. [facility] [address], [place], [address], [place]. tel:[phone] Referring Provider: Mario Leary, [facility] [address], [place], [address]. tel:[phone] Office/Outpa tient Visit, Est [facility] , [address], [place], [address], [place] tel:[phone] [facility] , Rheumatoid arthritis (chief complaint) Seropositive RAOsteopenia MyositisHigh risk medication monitoringBi lateral knee OA 6 [facility] Mario. [facility] [address], [place], [address], [place]. tel:[phone] Referring Provider: Mario Leary, [facility] [address], [place], [address]. tel:[phone] [facility] , [address], [place], [address], [place] tel:[phone] [facility] Consultants , Seropositive RA 6 [facility] Mario. [facility] [address], [place], [address], [place]. tel:[phone] Referring Provider: Mario Leary, [facility] [address], [place], [address]. tel:[phone] [facility] , [address], [place], [address], [place] tel:[phone] [facility] , Seropositive RA 6 [facility] Mario. [facility] [address], [place], [address], [place]. tel:[phone] Referring Provider: Mario Leary, [facility] [address], [place], [address]. tel:[phone] Office/Outpa tient Visit, Est [facility] , [address], [place], [address], [place] tel:[phone] [facility] , Rheumatoid arthritis (chief complaint) Seropositive RAOsteopenia MyositisHigh risk medication monitoringBi lateral knee OA Kb Martin. [facility] [address], [place], [address], [place]. tel:[phone] Referring Provider: Mario Leary, [facility] [address], [place], [address]. tel:[phone] Office/Outpa tient Visit, Est [facility] , [address], [place], [address], [place] tel:[phone] [facility] , Rheumatoid arthritis (chief complaint) Rheumatoid ArthritisOst eoarthrosis, generalized, involving unspecified siteMyalgia and myositis, unspecifiedO steopeniaThe rapeutic Drug Monitoring 5 Kb Martin. [facility] [address], [place], [address], [place]. tel:[phone] Referring Provider: Mario Leary, [facility] [address], [place], [address]. tel:[phone] [facility] , [address], [place], [address], [place] tel:[phone] [facility] , Rheumatoid Arthritis Kb Martin. [facility] [address], [place], [address], [place]. tel:[phone] Referring Provider: Mario Leary, [facility] [address], [place], [address]. tel:[phone] [facility] , [address], [place], [address], [place] tel:[phone] [facility] , Rheumatoid Arthritis Diana Lopez. [facility] [address], [place], [address], [place]. tel:[phone] Referring Provider: John Gutierrez, [facility] [address], [place], [address]. tel:[phone] Office/Outpa tient Visit, Est [facility] , [address], [place], [address], [place] tel:[phone] [facility] , Rheumatoid arthritis (chief complaint) Rheumatoid ArthritisOst eoarthrosis, generalized, involving unspecified siteMyalgia and myositis, unspecifiedO steopeniaThe rapeutic Drug Monitoring Kb Martin. [facility] [address], [place], [address], [place]. tel:[phone] Referring Provider: Mario Leary, [facility] [address], [place], [address]. tel:[phone] [facility] , [address], [place], [address], [place] tel:[phone] [facility] , Rheumatoid Arthritis Kbovidio Martin. [facility] [address], [place], [address], [place]. tel:[phone] Referring Provider: Mario Leary, [facility] [address], [place], [address]. tel:[phone] [facility] , [address], [place], [address], [place] tel:[phone] [facility] , Rheumatoid Arthritis [facility] Mario. [facility] [address], [place], [address], [place]. tel:[phone] Office/Outpa tient Visit, Est [facility] , [address], [place], [address], [place] tel:[phone] [facility] , Rheumatoid arthritis (chief complaint) Rheumatoid ArthritisOst eoarthrosis, generalized, involving unspecified siteOsteopen iaMyalgia and myositis, unspecifiedT herapeutic Drug Monitoring [facility] Mario. [facility] [address], [place], [address], [place]. tel:[phone] Referring Provider: Mario Leary, [facility] [address], [place], [address]. tel:[phone] [facility] , [address], [place], [address], [place] tel:[phone] [facility] , Rheumatoid Arthritis Kbdenisa Martin. [facility] [address], [place], [address], [place]. tel:[phone] Referring Provider: Mario Leary, [facility] [address], [place], [address]. tel:[phone] [facility] , [address], [place], [address], [place] tel:[phone] [facility] , Rheumatoid Arthritis 0 4 Kb Martin. [facility] [address], [place], [address], [place]. tel:[phone] [facility] , [address], [place], [address], [place] tel:[phone] [facility] , Rheumatoid Arthritis 4 Kb Martin. [facility] [address], [place], [address], [place]. tel:[phone] Referring Provider: Mario Leary, [facility] [address], [place], [address]. tel:[phone] [facility] , [address], [place], [address], [place] tel:[phone] [facility] , Rheumatoid Arthritis 4 Kb Martin. [facility] [address], [place], [address], [place]. tel:[phone] Office/Outpa tient Visit, Est [facility] , [address], [place], [address], [place] tel:[phone] [facility] , Rheumatoid Arthritis (chief complaint) Rheumatoid ArthritisMya lgia and myositis, unspecifiedD isorder of bone and cartilage, unspecifiedT herapeutic Drug MonitoringAb normal Liver Enzymes Nov- 4 Kb Mario. [facility] [address], [place], [address], [place]. tel:[phone] Referring Provider: Mario Leary, [facility] [address], [place], [address]. tel:[phone] [facility] , [address], [place], [address], [place] [phone] [facility] , Rheumatoid Arthritis Oct- 4 Kb Mario. [facility] [address], [place], [address], [place]. tel:[phone] Referring Provider: Mario Leary, [facility] [address], [place], [address]. tel:[phone] [facility] , [address], [place], [address], [place] tel:[phone] [facility] , Rheumatoid Arthritis 4 [facility] Mario. [facility] [address], [place], [address], [place]. tel:[phone] Office/Outpa tient Visit, Est [facility] , [address], [place], [address], [place] tel:[phone] [facility] , Rheumatoid Arthritis (chief complaint) Rheumatoid ArthritisMya lgia and myositis, unspecifiedD isorder of bone and cartilage, unspecifiedA bnormal Liver EnzymesThera peutic Drug Monitoring 4 Kb Martin. [facility] [address], [place], [address], [place]. tel:[phone] Referring Provider: Mario Leary, [facility] [address], [place], [address]. tel:[phone] [facility] , [address], [place], [address], [place] tel:[phone] [facility] , Rheumatoid Arthritis 4 Kb Martin. [facility] [address], [place], [address], [place]. tel:[phone] Referring Provider: Mario Leary, [facility] [address], [place], [address]. tel:[phone] [facility] , [address], [place], [address], [place] tel:[phone] [facility] , Rheumatoid Arthritis 4 Kb Martin. [facility] [address], [place], [address], [place]. tel:[phone] Referring Provider: Mario Leary, [facility] [address], [place], [address]. tel:[phone] [facility] , [address], [place], [address], [place] tel:[phone] [facility] , Rheumatoid Arthritis 4 Kb Martin. [facility] , [facility] [address], [place], [address], [place]. tel:[phone] Office/Outpa tient Visit, Est [facility] , [address], [place], [address], [place] tel:[phone] [facility] , Rheumatoid Arthritis (chief complaint) Rheumatoid ArthritisMya lgia and myositis, unspecifiedT herapeutic Drug MonitoringDi sorder of bone and cartilage, unspecifiedA bnormal Liver Enzymes 4 Kb Martin. [facility] [address], [place], [address], [place]. tel:[phone] Referring Provider: Mario Leary, [facility] [address], [place], [address]. tel:[phone] [facility] , [address], [place], [address], [place] tel:[phone] [facility] , No Information 4 Kb Martin. [facility] [address], [place], [address], [place]. tel:[phone] Referring Provider: Mario Leary, [facility] [address], [place], [address]. tel:[phone] [facility] , [address], [place], [address], [place] tel:[phone] [facility] , Rheumatoid Arthritis 4 Kb Martin. [facility] [address], [place], [address], [place]. tel:[phone] Referring Provider: Mario Leary, [facility] [address], [place], [address]. tel:[phone] [facility] , [address], [place], [address], [place] tel:[phone] [facility] , Rheumatoid Arthritis 4 Kb Martin. [facility] [address], [place], [address], [place]. tel:[phone] Office/Outpa tient Visit, Est [facility] , [address], [place], [address], [place] tel:[phone] [facility] , Rheumatoid Arthritis (chief complaint) Rheumatoid ArthritisUns pecified disorder of synovium, tendon, and bursaTherape utic Drug MonitoringOt her specified counselingMy algia and myositis, unspecified 4 Kbovidio Martin. [facility] , [facility] [address], [place], [address], [place]. tel:[phone] Referring Provider: Mario Leary, [facility] [address], [place], [address]. tel:[phone] [facility] , [address], [place], [address], [place] tel:[phone] [facility] , Rheumatoid Arthritis 4 Kbovidio Martin. [facility] [address], [place], [address], [place]. tel:[phone] Referring Provider: Mario Leary, [facility] [address], [place], [address]. tel:[phone] [facility] , [address], [place], [address], [place] tel:[phone] [facility] , Rheumatoid Arthritis 4 Kb Martin. [facility] [address], [place], [address], [place]. tel:[phone] [facility] , [address], [place], [address], [place] tel:[phone] [facility] , Rheumatoid Arthritis 3 Kb Martin. [facility] [address], [place], [address], [place]. tel:[phone] Referring Provider: Mario Leary, [facility] [address], [place], [address]. tel:[phone] [facility] , [address], [place], [address], [place] tel:[phone] [facility] , Rheumatoid Arthritis 3 Kb Martin. [facility] [address], [place], [address], [place]. tel:[phone] Office/Outpa tient Visit, Est [facility] , [address], [place], [address], [place] tel:[phone] [facility] , Rheumatoid Arthritis (chief complaint) Rheumatoid ArthritisOth er specified counselingTh erapeutic Drug MonitoringMy algia and myositis, unspecified 2 3 Kb Martin. [facility] , [facility] [address], [place], [address], [place]. tel:[phone] Referring Provider: Mario Leary, [facility] [address], [place], [address]. tel:[phone] [facility] , [address], [place], [address], [place] tel:[phone] [facility] , Rheumatoid Arthritis 3 [facility] Mario. [facility] , [facility] [address], [place], [address], [place]. tel:[phone] Referring Provider: Mario Leary, [facility] [address], [place], [address]. tel:[phone] [facility] , [address], [place], [address], [place] tel:[phone] [facility] , Rheumatoid Arthritis [facility] Mario. [facility] [address], [place], [address], [place]. tel:[phone] [facility] , [address], [place], [address], [place] [phone] [facility] , Rheumatoid Arthritis [facility] Mario. [facility] [address], [place], [address], [place]. tel:[phone] [facility] , [address], [place], [address], [place] tel:[phone] [facility] , Rheumatoid Arthritis Kbovidio Martin. [facility] , [facility] [address], [place], [address], [place]. tel:[phone] Referring Provider: Mario Leary, [facility] [address], [place], [address]. tel:[phone] [facility] , [address], [place], [address], [place] tel:[phone] [facility] , Rheumatoid Arthritis Kb Martin. [facility] , [facility] [address], [place], [address], [place]. tel:[phone] Office/Outpa tient Visit, Est [facility] , [address], [place], [address], [place] tel:[phone] [facility] , Rheumatoid Arthritis (chief complaint) Rheumatoid ArthritisOth er specified confluence healthTh erapeutic Drug MonitoringMy algia and myositis, unspecified Kb Martin. [facility] , [facility] [address], [place], [address], [place]. tel:[phone] Referring Provider: Mario Leary, [facility] [address], [place], [address]. tel:[phone] [facility] , [address], [place], [address], [place] tel:[phone] [facility] , Rheumatoid Arthritis 3 Kb Martin. [facility] , [facility] [address], [place], [address], [place]. tel:[phone] Referring Provider: Mario Leary, [facility] , [facility] [address], [place], [address]. tel:[phone] [facility] , [address], [place], [address], [place] tel:[phone] [facility] , Rheumatoid Arthritis [facility] Mario. [facility] [address], [place], [address], [place]. tel:[phone] [facility] , [address], [place], [address], [place] tel:[phone] [facility] , No Information Apr-0 [facility] Mario. [facility] [address], [place], [address], [place]. tel:[phone] Referring Provider: Mario Leary, [facility] [address], [place], [address]. tel:[phone] [facility] , [address], [place], [address], [place] tel:[phone] [facility] , Rheumatoid Arthritis [facility] Mario. [facility] [address], [place], [address], [place]. tel:[phone] Office/Outpa tient Visit, Est [facility] , [address], [place], [address], [place] tel:[phone] [facility] , Rheumatoid Arthritis (chief complaint) Rheumatoid ArthritisOth er specified counselingTh erapeutic Drug MonitoringOs teoarthrosis , generalized, involving unspecified siteMyalgia and myositis, unspecified 3 Kb Martin. [facility] [address], [place], [address], [place]. tel:[phone] Referring Provider: Mario Leary, [facility] [address], [place], [address]. tel:[phone] [facility] , [address], [place], [address], [place] tel:[phone] [facility] , Rheumatoid Arthritis 3 Kbovidio Martin. [facility] , [facility] [address], [place], [address], [place]. tel:[phone] Referring Provider: Mario Leary, [facility] [address], [place], [address]. tel:[phone] [facility] , [address], [place], [address], [place] tel:[phone] [facility] , Rheumatoid Arthritis 3 Kb Martin. [facility] , [facility] [address], [place], [address], [place]. tel:[phone] [facility] , [address], [place], [address], [place] tel:[phone] [facility] , Monitor chronic high risk medications (chief complaint) No Information 3 Kb Martin. [facility] [address], [place], [address], [place]. tel:[phone] Referring Provider: Mario Kb A, [facility] [address], [place], [address]. [phone] [facility] , [address], [place], [address], [place] tel:[phone] [facility] , Rheumatoid Arthritis 2 Priscila Munguia. [address], [place], [id number], [place]. tel:[phone] Referring Provider: Ezra Davies, [address], [place], [address]. tel:[phone] [facility] , [address], [place], [address], [place] tel:[phone] [facility] , Rheumatoid Arthritis 2 Kb Martin. [facility] , [facility] [address], [place], [address], [place]. tel:[phone] [facility] , [address], [place], [address], [place] tel:[phone] [facility] , Rheumatoid Arthritis 2 Kb Mario. [facility] [address], [place], [address], [place]. tel:[phone] Office/Outpa tient Visit, Est [facility] , [address], [place], [address], [place] tel:[phone] [facility] , Rheumatoid Arthritis (chief complaint) Rheumatoid ArthritisOth er specified confluence healthTh erapeutic Drug MonitoringOs teoarthrosis , generalized, involving unspecified siteMyalgia and myositis, unspecified 2 Kb Mario. [facility] [address], [place], [address], [place]. tel:[phone] Referring Provider: Mario Leary, [facility] [address], [place], [address]. tel:[phone] [facility] , [address], [place], [address], [place] tel:[phone] [facility] , No Information 2 Kb Martin. [facility] , [facility] [address], [place], [address], [place]. tel:[phone] Referring Provider: Mario Leary, [facility] [address], [place], [address]. tel:[phone] [facility] , [address], [place], [address], [place] tel:[phone] [facility] , No Information 2 Kb Mario. [facility] [address], [place], [address], [place]. tel:[phone] Referring Provider: Mario Leary, [facility] [address], [place], [address]. tel:[phone] [facility] , [address], [place], [address], [place] tel:[phone] [facility] , Rheumatoid Arthritis 2 Kb Martin. [facility] [address], [place] [place], [address], [place]. tel:[phone] Office/Outpa tient Visit, [facility] , [address], [place], [address], [place] tel:[phone] [facility] , Rheumatoid Arthritis (chief complaint) Rheumatoid ArthritisThe rapeutic Drug MonitoringOt her specified counselingOs teoarthrosis , generalized, involving unspecified siteMyalgia and myositis, unspecifiedG ERD [address] [address], [place], [address], [place]. tel:[phone] Referring Provider: Glenn Cleaning [address], [address]. tel:[phone] Family History Family Member Type Diagnosis Age At Onset Problem (finding) No family hist ory of Rheumatoid arthritis Immunizations Vaccine Date Status Comments COVID-19 Pfizer administered Note: 2020 ; Source: Other Provider Payers Payer name Insurance type Covered green party ID Authoriza tion(s) [employer] Advantage/[employer] [id number] Social History Type Description Quantity Date Captured [...]
--- NOTE | 2024-05-03 11:04 | ED.CHESTPAIN ---
HPI - Chest Pain General Time Seen by Provider: 11:04 Date Seen: 05/03/24 Chief Complaint: Chest Pain Stated Complaint: Chest pain Time Seen by Provider: 05/03/24 10:45 Source: patient and family History of Present Illness HPI narrative: This 74-year-old female is coming over to the ER from cardiac stress testing where she had a Lexiscan and has ongoing chest pain. Patient has a history of coronary artery disease with a NSTEMI in 2016 with reportedly 2 stents being placed. She is unsure of the symptoms that she was having back in 2016, thought she was having more back issues. Her symptoms today are not relatable to prior symptoms, she does not really remember what symptoms she was having. With the infusion of the regadenoson during her Lexiscan, she did have some diaphoresis, felt dizzy or lightheaded, developed left-sided chest pain, had pain in both of her jaw those into her ears, felt worse on the right side of the jaw and ear which did continue but is starting to saad, also had mild generalized headache. Her chest pain has started to saad but was continuing with the post-stress imaging, patient was advised to be seen in the ED if her chest pain was not resolving. Patient has hyperlipidemia, type 2 diabetes without insulin use, hypertension. She also has rheumatoid arthritis. Patient had her stress test done today as she has been having some exertional as well as nonexertional chest discomfort. This has admittedly been going on since we maybe December. [place] var[place] through the airport [place] get to her gait. She also did bring up an episode of for 5 days where she felt dizzy in January, felt like she was going to fall over backwards when she would get up,? Vertigo equivalent. This has resolved and not come back. Patient is statin intolerant. complaint: chest pain Related Data Home Medications ?Medication ?Instructions ?Recorded ?Confirmed aspirin 81 mg chewable tablet 81 mg PO DAILY 11/01/21 04/28/24 dlhtwxhjlp-[id number]-veqcswwm 50 1 tab PO Q4-6H PRN 11/01/21 04/28/24 mg-325 mg-40 mg tablet cetirizine 10 mg tablet 10 mg PO DAILY 11/01/21 04/28/24 coenzyme Q10 100 mg capsule 100 mg PO QDAY 11/01/21 04/28/24 nitroglycerin 0.4 mg sublingual 0.4 mg sublingual ONCE 11/01/21 04/28/24 tablet tofacitinib 10 mg tablet 10 mg PO DAILY 11/01/21 04/28/24 mecobalamin (vitamin B12) 5,000 5,000 mcg PO QDAY 03/06/22 04/28/24 mcg disintegrating tablet evolocumab 140 mg/mL subcutaneous 140 mg subcut Q2W 07/29/22 04/28/24 pen injector (John Whitaker) sulfasalazine 500 mg tablet 1 g PO QDAY 07/29/22 04/28/24 isosorbide mononitrate 30 mg 30 mg PO QDAY 04/28/24 04/28/24 tablet,extended release 24 hr Previous Rx's ?Medication ?Instructions ?Recorded lancing device (lancing device #1 ea 11/06/21 with lancets) escitalopram oxalate 10 mg tablet 10 mg PO QDAY #90 tabs 07/29/22 (Lexapro) glimepiride 2 mg tablet 2 mg PO QAM #90 tabs 10/27/23 Diabetic Test Strips #300 ea 10/28/23 levothyroxine 88 mcg tablet 88 mcg PO DAILY #90 tabs 11/30/23 lisinopril 30 mg tablet 30 mg PO DAILY #90 tabs 11/30/23 semaglutide 1 mg/dose (4 mg/3 mL) 1 mg (0.75 mL) subcut QWEEK #3 mL 03/07/24 subcutaneous pen injector terbinafine HCl 250 mg tablet 250 mg PO DAILY #21 tabs 03/29/24 zolpidem 5 mg tablet (Ambien) 5 mg PO QHS PRN sleep #30 tabs 03/30/24 Allergies Allergy/AdvReac Type Severity Reaction Status Date / Time Wqhbdoc-UHQ-ShI Reductase Allergy Intermediate leg cramps Verified 09/14/23 10:18 Inhibitor dexamethasone (From Maxitrol) Allergy Mild Periorbital Verified 09/14/23 10:18 Edema neomycin (From Maxitrol) Allergy Mild Periorbital Verified 09/14/23 10:18 Edema polymyxin B (From Maxitrol) Allergy Mild Periorbital Verified 09/14/23 10:18 Edema Review of Systems Status of ROS Reports: 6 or more systems reviewed and unremarkable except as noted in History and below [facility] Medical History Mixed hyperlipidemia ?E78.2 - Mixed hyperlipidemia (ICD-10) Generalized anxiety disorder ?F41.1 - Generalized anxiety disorder (ICD-10) Major depression, recurrent ?F33.9 - Major depressive disorder, recurrent, unspecified (ICD-10) Type 2 diabetes mellitus, without long-term current use of insulin ?E11.9 - Type 2 diabetes mellitus without complications (ICD-10) Vitamin D deficiency ?E55.9 - Vitamin D deficiency, unspecified (ICD-10) Elevated CPK ?R74.8 - Abnormal levels of other serum enzymes (ICD-10) Insomnia ?G47.00 - Insomnia, unspecified (ICD-10) Osteopenia ?M85.80 - Other specified disorders of bone density and structure, unspecified site (ICD-10) Elevated LFTs ?R79.89 - Other specified abnormal findings of blood chemistry (ICD-10) Health care directive on file (10/13/18) ?Z78.9 - Other specified health status (ICD-10) ADEBAYO (obstructive sleep apnea) ?G47.33 - Obstructive sleep apnea (adult) (pediatric) (ICD-10) Tinnitus of both ears ?H93.13 - Tinnitus, bilateral (ICD-10) History of non-ST elevation myocardial infarction (NSTEMI) (08/2015) ?I25.2 - Old myocardial infarction (ICD-10) Allergic rhinitis ?J30.9 - Allergic rhinitis, unspecified (ICD-10) Seropositive rheumatoid arthritis ?M05.9 - Rheumatoid arthritis with rheumatoid factor, unspecified (ICD-10) History of migraine ?Z86.69 - Personal history of other diseases of the nervous system and sense organs (ICD-10) Hypothyroidism ?E03.9 - Hypothyroidism, unspecified (ICD-10) ASCVD (arteriosclerotic cardiovascular disease) ?I25.10 - Atherosclerotic heart disease of [place] coronary artery without angina pectoris (ICD-10) Essential hypertension ?I10 - Essential (primary) hypertension (ICD-10) Surgical History Status post trigger finger release (11/05/22) ?Z98.890 - Other specified postprocedural states (ICD-10) H/O left knee surgery ?Z98.890 - Other specified postprocedural states (ICD-10) History of cataract surgery ?Z98.49 - Cataract extraction status, unspecified eye (ICD-10) History of lumbar spinal fusion (03/22/20) ?Z98.1 - Arthrodesis status (ICD-10) History of gynecologic surgery (2014) ?Z98.890 - Other specified postprocedural states (ICD-10) History of heart artery stent (09/07/15) ?Z95.5 - Presence of coronary angioplasty implant and graft (ICD-10) History of total abdominal hysterectomy (~12/1997) ?Z90.710 - Acquired absence of both cervix and uterus (ICD-10) History of tonsillectomy and adenoidectomy (~1957) ?Z90.89 - Acquired absence of other organs (ICD-10) Social History Narrative: , reunited. 4 children. Retired. Nonsmoker. Rare EtOH. What is your current living situation?: I presently have a place to live Problems where you live: no known problems In the past 12 months, utilities in danger of being shut off: no In past 12 months, lack of transportation kept you from medical appts, meetings, work, or getting things needed for daily living: no In the past 12 mos, have been you worried that your food would run out before you had money to buy more?: never true In the past 12 mos, the food you bought just didn't last and you didn't have money to buy more?: never true Smoking Status: Former smoker Non-prescribed substance use: denies use How often does anyone, including family, friends and others, physically hurt you: never How often does anyone, including family, friends and others, threaten you with harm: never How often does anyone, including family, friends and others, scream or curse at you: never Exam Const Vital Signs, click to edit/add: Vital Signs - 24 hr 05/03/24 10:45 05/03/24 10:49 05/03/24 10:53 Temperature 97.7 F Pulse Rate 67 Pulse Rate [Pulse Oximeter] 69 Respiratory Rate 16 16 Blood Pressure Blood Pressure [Right Upper Arm] 137/55 L Pulse Oximetry 95 98 95 Oxygen Delivery Method Room Air 05/03/24 11:15 05/03/24 11:23 05/03/24 11:30 Temperature Pulse Rate 64 63 65 Pulse Rate [Pulse Oximeter] Respiratory Rate 12 19 Blood Pressure 136/74 Blood Pressure [Right Upper Arm] Pulse Oximetry 95 95 95 Oxygen Delivery Method 05/03/24 11:42 05/03/24 11:45 05/03/24 12:00 Temperature Pulse Rate 62 71 67 Pulse Rate [Pulse Oximeter] Respiratory Rate 12 13 Blood Pressure 149/80 H Blood Pressure [Right Upper Arm] Pulse Oximetry 94 94 98 Oxygen Delivery Method 05/03/24 12:01 05/03/24 12:15 Temperature Pulse Rate 63 58 L Pulse Rate [Pulse Oximeter] Respiratory Rate 14 Blood Pressure 172/88 H Blood Pressure [Right Upper Arm] Pulse Oximetry 98 95 Oxygen Delivery Method This 74-year-old female is alert, interactive, no apparent distress. Sclera clear, conjugate gaze, able speak in complete sentences. Symmetric facial function. Neck is supple, no adenopathy, no thyromegaly masses or nodules. No jugular venous distension. Lungs are clear, good air entry, no wheezing or crackles, no tachypnea, no accessory muscle use. CV regular rate and rhythm, no murmur, normal S1-S2, no S3-S4. Abdomen is soft, nontender, nondistended, no organomegaly or masses. No lower extremity edema. Patient was ambulatory into the ED of her own accord. Documenting provider has reviewed patient's vital signs: yes Course Course ED Course: Patient will be monitored on cardiac monitoring and pulse oximetry. Will get troponins and follow to ensure no ischemic disease. Patient did take an 81 mg aspirin this morning, will give her 3 other baby aspirins at this time. If ongoing chest pain, consider nitroglycerin and other interventions as indicated. Reevaluation(s) Time of Reevaluation #1: 11:35 Reevaluation #1: Patient has had point of care troponin come back at 0.00. She is still experiencing some very mild chest discomfort. Her jaw symptoms and headache have resolved. Will try 1 sublingual nitroglycerin. Time of Reevaluation #2: 13:41 Reevaluation #2: Patient's 2nd troponin which was point of care did come back at 0.00. She never did end up taking the nitroglycerin as by the time the nurse brought in, her chest pain had resolved. She has had no recurrence. We are going to let per discharge to home at this time and await the nuclear images to be reviewed. Discussed minimizing any exertional activity until we know the test results. She does tell me that she has an appointment with Dr. Francisco this . Hopefully the test will be read and she will have the results at that time. Vital Signs Vital signs: Initial Vital Signs Respiratory Effort Normal, Spontaneous, Non-Labored 05/03/24 10:41 Respiratory Depth Normal 05/03/24 10:41 Vital Signs Pulse Oximetry 95 05/03/24 10:45 Temperature 97.7 F 05/03/24 10:49 Pulse Rate 58 L 05/03/24 12:15 Respiratory Rate 14 05/03/24 12:01 Blood Pressure 172/88 H 05/03/24 12:01 Pulse Oximetry 95 05/03/24 12:15 Oxygen Delivery Method Room Air 05/03/24 10:49 Medications Administered Medications: Discontinued Medications Generic Name Dose Route Start Last Admin Trade Name Freq PRN Reason Stop Dose Admin Aspirin 243 mg 05/03/24 11:11 05/03/24 11:23 Aspirin 81 Mg Tab.Chew PO 05/03/24 11:12 243 mg ONCE ONE Administration MDM - Chest Pain Lab Data Attestation: I reviewed the patient's lab results. Labs: Lab Results 05/03/24 05/03/24 05/03/24 Range/Units 11:00 11:00 11:04 WBC 6.09 (4.50-11.00) K/uL RBC 4.60 (4.00-5.20) m/uL Hgb 13.7 (12.0-16.0) gm/dL Hct 41.0 (33.0-51.0) % MCV 89 (80-100) fL MCH 30 (26-34) pg MCHC 33 (32-36) gm/dL RDW Coeff of Jose 12.1 (11.5-15.5) % Plt Count 210 (140-440) K/uL Neut % (Auto) 39.7 L (42.0-72.0) % Lymph % (Auto) 48.9 H (20-44) % [place] % (Auto) 9.9 (0.0-11.0) % Eos % (Auto) 1.0 (0.0-7.0) % Baso % (Auto) 0.2 (0.0-3.0) % Neut # (Auto) 2.40 (1.7-7.0) K/uL Lymph # (Auto) 3.00 H (0.90-2.90) K/uL [place] # (Auto) 0.60 (0.00-0.90) K/UL Eos # (Auto) 0.06 (0.00-0.50) K/uL Baso # (Auto) 0.01 (0.00-0.30) K/uL Abs Immat Gran (auto) 0.02 (0.00-0.30) K/uL Imm/Tot Granulo (auto) 0.3 % Sodium 135 (135-149) mmol/L Potassium 3.7 (3.6-5.1) mmol/L Chloride 101 (96-114) mmol/L Carbon Dioxide 24 (20-32) mmol/L Anion Gap 10 (7-15) mEq/L BUN 23 (7-30) mg/dL Creatinine 1.0 (0.5-1.5) mg/dL Estimated Creat Clear 52.07 Estimated GFR 60 ml/min Glucose 139 H (60-115) mg/dL Calcium 9.6 (8.4-10.6) mg/dL Troponin I < 0.01 L Cancelled (0.01-0.04) ng/mL POC Troponin I 0.00 L (0.01-0.04) ng/ml 05/03/24 Range/Units 13:33 WBC (4.50-11.00) K/uL RBC (4.00-5.20) m/uL Hgb (12.0-16.0) gm/dL Hct (33.0-51.0) % MCV (80-100) fL MCH (26-34) pg MCHC (32-36) gm/dL RDW Coeff of Jose (11.5-15.5) % Plt Count (140-440) K/uL Neut % (Auto) (42.0-72.0) % Lymph % (Auto) (20-44) % [place] % (Auto) (0.0-11.0) % Eos % (Auto) (0.0-7.0) % Baso % (Auto) (0.0-3.0) % Neut # (Auto) (1.7-7.0) K/uL Lymph # (Auto) (0.90-2.90) K/uL [place] # (Auto) (0.00-0.90) K/UL Eos # (Auto) (0.00-0.50) K/uL Baso # (Auto) (0.00-0.30) K/uL Abs Immat Gran (auto) (0.00-0.30) K/uL Imm/Tot Granulo (auto) % Sodium (135-149) mmol/L Potassium (3.6-5.1) mmol/L Chloride (96-114) mmol/L Carbon Dioxide (20-32) mmol/L Anion Gap (7-15) mEq/L BUN (7-30) mg/dL Creatinine (0.5-1.5) mg/dL Estimated Creat Clear Estimated GFR ml/min Glucose (60-115) mg/dL Calcium (8.4-10.6) mg/dL Troponin I (0.01-0.04) ng/mL POC Troponin I 0.00 L (0.01-0.04) ng/ml ECG Data Attestation: I personally reviewed and interpreted this ECG as follows: (Normal sinus rhythm, 64 beats per minute. LVH by voltage criteria in aVL. Flipped T-waves in lead 3, nonspecific change AVF, flipped in V1 but otherwise no other T-wave changes or ST segment changes.) ECG interpretation date: 05/03/24 ECG interpretation time: 11:01 Prior ECG tracings: available for review Interpretation: Normal sinus rhythm, 61 beats per minute. Voltage criteria for LVH. Flipped T-wave only in V1 now. No ST segment changes. This EKG was from 1:00 p.m. today. Discharge Plan Discharge Clinical Impression: History of CAD (coronary artery disease) Chest pain Qualifiers: Chest pain type: unspecified Qualified Code(s): R07.9 - Chest pain, unspecified Patient Disposition: Home, Self-Care Condition: Stable Instructions: Chest Pain (ED) Additional Instructions: Minimize any exertional activity at this time. Keep follow-up appointment with Dr. Francisco on as scheduled; hopefully the nuclear images will be read by then and he will have a report for you on the stress test. Continue with your current medicines including your daily aspirin. If you have concerns for recurrent chest pain or symptoms signifying cardiac disease, do recommend re-evaluation. Activity Level: Activity as Tolerated Discharge Diet: Heart Healthy (2 gm sodium, low fat) Prescriptions: No Action coenzyme Q10 100 mg capsule 100 mg PO QDAY aspirin 81 mg tablet,chewable 81 mg PO DAILY nitroglycerin 0.4 mg tablet, sublingual 0.4 mg sublingual ONCE Rx Instructions: PRN CHEST PAIN cetirizine 10 mg tablet 10 mg PO DAILY agnpwvcqco-fmosihf-zlukhcbw 50-325-40 mg tablet 1 tab PO Q4-6H PRN tofacitinib 10 mg tablet 10 mg PO DAILY (DME) lancing device [lancing device with lancets] [facility] See Rx Instructions .Route Qty: 1 12RF Rx Instructions: Tests BID mecobalamin (vitamin B12) 5,000 mcg tablet,disintegrating 5,000 mcg PO QDAY Repatha SureClick 140 mg/mL pen injector 140 mg subcut Q2W sulfasalazine 500 mg tablet 1 g PO QDAY escitalopram oxalate [Lexapro] 10 mg tablet 10 mg PO QDAY Qty: 90 1RF Rx Instructions: 1/2 QD x 6 days then 1 QD isosorbide mononitrate 30 mg tablet extended release 24 hr 30 mg PO QDAY glimepiride 2 mg tablet 2 mg PO QAM Qty: 90 1RF Rx Instructions: administer with breakfast (DME) Diabetic Test Strips [facility] See Rx Instructions .Route Qty: 300 3RF Rx Instructions: Use to test blood glucose 3 times daily levothyroxine 88 mcg tablet 88 mcg PO DAILY Qty: 90 2RF lisinopril 30 mg tablet 30 mg PO DAILY Qty: 90 2RF semaglutide 1 mg/dose (4 mg/3 mL) pen injector 1 mg subcut QWEEK Qty: 3 1RF terbinafine HCl 250 mg tablet 250 mg PO DAILY Qty: 21 1RF Rx Instructions: 1 QD x 7 days, repeat monthly x 6 months zolpidem [Ambien] 5 mg tablet 5 mg PO QHS PRN (Reason: sleep) Qty: 30 2RF Follow Up/Referrals: Glenn Francisco MD [Primary Care Provider] - Stand Alone Forms: [employer] Info Instructions
[2024-05-03] MEDS: ASPIRIN 81 MG TAB.CHEW 243 MG PO (11:23)
[2024-05-03 11:25] LABS: Chloride* 101 mmol/L (96-114); Sodium* 135 mmol/L (135-149)
[2024-05-03 11:26] LABS: Potassium* 3.7 mmol/L (3.6-5.1)
[2024-05-03 11:27] LABS: Basophils Absolute Auto 0.01 K/uL (0.00-0.30); Basophils Percent Auto 0.2 % (0.0-3.0); Eosinophils Absolute Auto 0.06 K/uL (0.00-0.50); Hemoglobin* 13.7 gm/dL (12.0-16.0); Immature Granulocytes Abs Auto 0.02 K/uL (0.00-0.30); Immature Granulocytes Pct Auto 0.3 %; Lymphocytes Percent Auto 48.9 % (20-44); Mean Corpuscular HGB Conc 33 gm/dL (32-36); Mean Corpuscular Hemoglobin 30 pg (26-34); Mean Corpuscular Volume 89 fL (80-100); Monocytes Percent Auto 9.9 % (0.0-11.0); Neutrophils Percent Auto 39.7 % (42.0-72.0); Platelet Count* 210 K/uL (140-440); RDW Coefficient of Variation % 12.1 % (11.5-15.5); White Blood Count* 6.09 K/uL (4.50-11.00)
[2024-05-03 11:28] LABS: Blood Urea Nitrogen* 23 mg/dL (7-30); Carbon Dioxide* 24 mmol/L (20-32); Est. Creatinine Clearance* 52.07; Estimated Glomerular Filt Rate 60 ml/min
[2024-05-03 11:29] LABS: Anion Gap 10 mEq/L (7-15); Calcium* 9.6 mg/dL (8.4-10.6); Glucose* 139 mg/dL (60-115)
[2024-05-03 11:30] LABS: Slide Review Reflex No
--- OUTSIDE RECORDS SUMMARY | 2024-05-03 11:35 | XMS_ITS | Continuity of Care Document ---
Author Organization [facility] Address [address] [place] [address] Phone Care Team Providers Care Rabbit Fancier Name Role Phone Kb SRIVASTAVA, Mario Unavailable [...] of each week Not Available - Active glimepiride 2 mg tablet take 1 tablet by oral route every day 2 MG - Active terbinafine HCl 250 mg tablet 1 week on, 3 weeks off - Active REPATHA SURECLICK (unknown strength) inject [...] route every day 81 MG - Active ZPTPSEDSLH-IHGXZGZ-O AFFEINE (unknown strength) as needed Not Available - Active ketoconazole 2 % topical cream apply by topical route 2 times every day to the affected area(s) 0.00 - Active levothyroxine 88 mcg tablet take 1 tablet by oral route every day 88 MCG - Active TheraCal D4000 250 mg calcium-1,000 [...] [address], [place], [address], [place] tel:[phone] [facility] , No Information 5 Kb Martin. [facility] [address], [place], [address], [place]. tel:[phone] Office/Outpa tient Visit, Est [facility] , [address], [place], [address], [place] tel:[phone] [facility] , Rheumatoid arthritis (chief complaint) CounselingHi gh risk medication monitoringVi tamin D deficiencySe ropositive RAMyositisOs teopeniaFatt y (change of) liver, not elsewhere classifiedPa in 5 Kb Martin. [facility] [address], [place], [address], [place]. tel:[phone] Referring Provider: Mario Leary, [facility] [address], [place], [address]. tel:[phone] [facility] , [address], [place], [address], [place] tel:[phone] [facility] No Information 4 Kb Martin. [facility] [address], [place], [address], [place]. tel:[phone] Office/Outpa tient Visit, Est [facility] , [address], [place], [address], [place] tel:[phone] [facility] , Rheumatoid arthritis (chief complaint) CounselingHi gh risk medication monitoringVi tamin D deficiencySe ropositive RAMyositisOs teopeniaFatt y (change of) liver, not elsewhere classifiedPa in 4 Kb Martin. [facility] [address], [place], [address], [place]. tel:[phone] Referring Provider: Mario Leary, [facility] [address], [place], [address]. tel:[phone] Office/Outpa tient Visit, Est [facility] , [address], [place], [address], [place] tel:[phone] [facility] , Rheumatoid arthritis (chief complaint) CounselingHi gh risk medication monitoringVi tamin D deficiencySe ropositive RAMyositisOs teopeniaFatt y (change of) liver, not elsewhere classifiedPa in 4 Kb Martin. [facility] [address], [place], [address], [place]. tel:[phone] Referring Provider: Mario Leary, [facility] [address], [place], [address]. tel:[phone] Office/Outpa tient Visit, Est [facility] , [address], [place], [address], [place] tel:[phone] [facility] , Rheumatoid arthritis (chief complaint) CounselingHi gh risk medication monitoringVi tamin D deficiencySe ropositive RAMyositisOs teopeniaFatt y (change of) liver, not elsewhere classified 3 Kb Martin. [facility] [address], [place], [address], [place]. tel:[phone] Referring Provider: Mario Leary, [facility] [address], [place], [address]. tel:[phone] Office/Outpa tient Visit, Est [facility] , [address], [place], [address], [place] tel:[phone] [facility] , Rheumatoid arthritis (chief complaint) CounselingHi gh risk medication monitoringVi tamin D deficiencySe ropositive RAMyositisOs teopeniaFatt y (change of) liver, not elsewhere classified 3 Kb Martin. [facility] [address], [place], [address], [place]. tel:[phone] Referring Provider: Mario Leary, [facility] [address], [place], [address]. tel:[phone] Office/Outpa tient Visit, Est [facility] , [address], [place], [address], [place] tel:[phone] [facility] , Rheumatoid arthritis (chief complaint) CounselingHi gh risk medication monitoringVi tamin D deficiencySe ropositive RAMyositisOs teopeniaFatt y (change of) liver, not elsewhere classified 3 Kb Martin. [facility] [address], [place], [address], [place]. tel:[phone] Referring Provider: Mario Leary, [facility] [address], [place], [address]. tel:[phone] Office/Outpa tient Visit, Est [facility] , [address], [place], [address], [place] tel:[phone] [facility] , Rheumatoid arthritis (chief complaint) Vitamin D deficiencySe ropositive RAMyositisOs teopeniaCoun selingHigh risk medication monitoringFa tty (change of) liver, not elsewhere classified 3 Kb Martin. [facility] [address], [place], [address], [place]. tel:[phone] Referring Provider: Mario Leary, [facility] [address], [place], [address]. tel:[phone] Office/Outpa tient Visit, Est [facility] , [address], [place], [address], [place] tel:[phone] [facility] , Rheumatoid arthritis (chief complaint) Vitamin D deficiencySe ropositive RAMyositisOs teopeniaCoun selingHigh risk medication monitoringFa tty (change of) liver, not elsewhere classifiedOt her low back pain Oct-2 2 Kb Martin. [facility] [address], [place], [address], [place]. tel:[phone] Referring Provider: Mario Leary, [facility] [address], [place], [address]. tel:[phone] Office/Outpa tient Visit, Est [facility] , [address], [place], [address], [place] tel:[phone] [facility] , Rheumatoid arthritis (chief complaint) Vitamin D deficiencySe ropositive RAMyositisOs teopeniaCoun selingHigh risk medication monitoringFa tty (change of) liver, not elsewhere classified 2 Kb Martin. [facility] [address], [place], [address], [place]. tel:[phone] Referring Provider: Mario Leary, [facility] [address], [place], [address]. tel:[phone] Office/Outpa tient Visit, Est [facility] , [address], [place], [address], [place] tel:[phone] [facility] , Rheumatoid arthritis (chief complaint) Vitamin D deficiencySe ropositive RAMyositisOs teopeniaElev ated liver enzymesCouns elingHigh risk medication monitoring 2 Kb Martin. [facility] [address], [place], [address], [place]. tel:[phone] Referring Provider: Mario Leary, [facility] [address], [place], [address]. tel:[phone] Office/Outpa tient Visit, Est [facility] , [address], [place], [address], [place] tel:[phone] [facility] , Rheumatoid arthritis (chief complaint) Vitamin D deficiencySe ropositive RAOA of 1st [facility] jointMyositi sOsteopeniaE levated liver enzymesCouns elingHigh risk medication monitoring 1 Kb Martin. [facility] [address], [place], [address], [place]. tel:[phone] Referring Provider: Mario Leary, [facility] [address], [place], [address]. tel:[phone] Office/Outpa tient Visit, Est [facility] , [address], [place], [address], [place] tel:[phone] [facility] , Rheumatoid arthritis (chief complaint) Vitamin D deficiencySe ropositive RAOA of 1st [facility] jointMyositi sOsteopeniaE levated liver enzymesHigh risk medication monitoringCo unseling 1 Kb Martin. [facility] [address], [place], [address], [place]. tel:[phone] Referring Provider: Mario Leary, [facility] [address], [place], [address]. tel:[phone] Office/Outpa tient Visit, Est [facility] , [address], [place], [address], [place] tel:[phone] [facility] , Rheumatoid arthritis (chief complaint) Vitamin D deficiencySe ropositive RAOA of 1st [facility] jointMyositi sOsteopeniaE levated liver enzymesHigh risk medication monitoringCo unseling 1 Kb Martin. [facility] [address], [place], [address], [place]. tel:[phone] Referring Provider: Mario Leary, [facility] [address], [place], [address]. tel:[phone] Office/Outpa tient Visit, Est [facility] , [address], [place], [address], [place] tel:[phone] [facility] , Rheumatoid arthritis (chief complaint) Vitamin D deficiencySe ropositive RAOA of 1st [facility] jointMyositi sOsteopeniaE levated liver enzymesHigh risk medication monitoringCo unselingBack pain 0 Kb Martin. [facility] [address], [place], [address], [place]. tel:[phone] Referring Provider: Mario Leary, [facility] [address], [place], [address]. tel:[phone] Office/Outpa tient Visit, Est [facility] , [address], [place], [address], [place] tel:[phone] [facility] , Rheumatoid arthritis (chief complaint) Vitamin D deficiencySe ropositive RABilateral knee OAOA of 1st [facility] jointMyositi sOsteopeniaE levated liver enzymesHigh risk medication monitoring 0 Kb Martin. [facility] [address], [place], [address], [place]. tel:[phone] Referring Provider: Mario Leary, [facility] [address], [place], [address]. tel:[phone] Office/Outpa tient Visit, Est [facility] , [address], [place], [address], [place] tel:[phone] [facility] , Rheumatoid arthritis (chief complaint) Vitamin D deficiencySe ropositive RABilateral knee OAOA of 1st [facility] jointMyositi sOsteopeniaE levated liver enzymesHigh risk medication monitoringPl jorge fasciitis 0 Kbovidio Martin. [facility] [address], [place], [address], [place]. tel:[phone] Referring Provider: Mario Leary, [facility] [address], [place], [address]. tel:[phone] Office/Outpa tient Visit, Est [facility] , [address], [place], [address], [place] tel:[phone] [facility] , Rheumatoid arthritis (chief complaint) OsteopeniaEl evated liver enzymesHigh risk medication monitoringOA of 1st [facility] jointVitamin D deficiencySe ropositive RABilateral knee OAMyositis 9 Kb Mario. [facility] [address], [place], [address], [place]. tel:[phone] Referring Provider: Mario Leary, [facility] [address], [place], [address]. tel:[phone] Office/Outpa tient Visit, Est [facility] , [address], [place], [address], [place] tel:[phone] [facility] , Rheumatoid arthritis (chief complaint) Vitamin D deficiencySe ropositive RABilateral knee OAMyositisOs teopeniaElev ated liver enzymesHigh risk medication monitoringOA of 1st [facility] joint 9 Kb Martin. [facility] [address], [place], [address], [place]. tel:[phone] Referring Provider: Mario Leary, [facility] [address], [place], [address]. tel:[phone] Office/Outpa tient Visit, Est [facility] , [address], [place], [address], [place] tel:[phone] [facility] , Rheumatoid arthritis (chief complaint) Vitamin D deficiencySe ropositive RABilateral knee OAMyositisOs teopeniaElev ated liver enzymesHigh risk medication monitoring 9 Kb Martin. [facility] [address], [place], [address], [place]. tel:[phone] Referring Provider: Mario Leary, [facility] [address], [place], [address]. tel:[phone] Office/Outpa tient Visit, Est [facility] , [address], [place], [address], [place] tel:[phone] [facility] , Rheumatoid arthritis (chief complaint) Vitamin D deficiencySe ropositive RABilateral knee OAMyositisOs teopeniaElev ated liver enzymesHigh risk medication monitoringFa tigueLateral epicondyliti s, unspecified elbow 8 Kb Martin. [facility] [address], [place], [address], [place]. tel:[phone] Referring Provider: Mario Leary, [facility] [address], [place], [address]. tel:[phone] Office/Outpa tient Visit, Est [facility] , [address], [place], [address], [place] tel:[phone] [facility] , Rheumatoid arthritis (chief complaint) Vitamin D deficiencySe ropositive RABilateral knee OAMyositisOs teopeniaHigh risk medication monitoringEl evated liver enzymes 8 Kb Martin. [facility] [address], [place], [address], [place]. tel:[phone] Referring Provider: Mario Leary, [facility] [address], [place], [address]. tel:[phone] Office/Outpa tient Visit, Est [facility] , [address], [place], [address], [place] tel:[phone] [facility] , Rheumatoid arthritis (chief complaint) Seropositive RABilateral knee OAMyositisOs teopeniaHigh risk medication monitoringVi tamin D deficiency 8 Kb Martin. [facility] [address], [place], [address], [place]. tel:[phone] Referring Provider: Mario Leary, [facility] [address], [place], [address]. tel:[phone] Office/Outpa tient Visit, Est [facility] , [address], [place], [address], [place] tel:[phone] [facility] , Rheumatoid arthritis (chief complaint) Seropositive RABilateral knee OAMyositisOs teopeniaHigh risk medication monitoring 8 Kb Maritn. [facility] [address], [place], [address], [place]. tel:[phone] Referring Provider: Mario Leary, [facility] [address], [place], [address]. tel:[phone] Office/Outpa tient Visit, Est [facility] , [address], [place], [address], [place] tel:[phone] [facility] , Rheumatoid arthritis (chief complaint) Seropositive RABilateral knee OAMyositisOs teopeniaHigh risk medication monitoring Kb Martin. [facility] [address], [place], [address], [place]. tel:[phone] Referring Provider: Mario Leary, [facility] [address], [place], [address]. tel:[phone] Office/Outpa tient Visit, Est [facility] , [address], [place], [address], [place] tel:[phone] [facility] , Rheumatoid arthritis (chief complaint) Seropositive RABilateral knee OAMyositisOs teopeniaHigh risk medication monitoring Kb Martin. [facility] [address], [place], [address], [place]. tel:[phone] Referring Provider: Mario Leary, [facility] [address], [place], [address]. tel:[phone] Office/Outpa tient Visit, Est [facility] , [address], [place], [address], [place] tel:[phone] [facility] , Rheumatoid arthritis (chief complaint) Seropositive RABilateral knee OAMyositisOs teopeniaHigh risk medication monitoring Kb Martin. [facility] [address], [place], [address], [place]. tel:[phone] Referring Provider: Mario Leary, [facility] [address], [place], [address]. tel:[phone] [facility] , [address], [place], [address], [place] tel:[phone] [facility] , Osteopenia Kb Martin. [facility] [address], [place], [address], [place]. tel:[phone] Referring Provider: Mario Leary, [facility] [address], [place], [address]. tel:[phone] Office/Outpa tient Visit, Est [facility] , [address], [place], [address], [place] tel:[phone] [facility] , Rheumatoid arthritis (chief complaint) Seropositive RABilateral knee OAMyositisOs teopeniaHigh risk medication monitoring Kb Martin. [facility] [address], [place], [address], [place]. tel:[phone] Referring Provider: Mario Leary, [facility] [address], [place], [address]. tel:[phone] Office/Outpa tient Visit, Est [facility] , [address], [place], [address], [place] tel:[phone] [facility] , Rheumatoid arthritis (chief complaint) Seropositive RABilateral knee OAMyositisOs teopeniaHigh risk medication monitoring 6 [facility] Mario. [facility] [address], [place], [address], [place]. tel:[phone] Referring Provider: Mario Leary, [facility] [address], [place], [address]. tel:[phone] Office/Outpa tient Visit, Est [facility] , [address], [place], [address], [place] tel:[phone] [facility] , Rheumatoid arthritis (chief complaint) Seropositive RAOsteopenia MyositisHigh risk medication monitoringBi lateral knee OABursitis of unspecified shoulderTroc hanteric bursitis of left hip 6 Kbovidio Martin. [facility] [address], [place], [address], [place]. tel:[phone] Referring Provider: Mario Leary, [facility] [address], [place], [address]. tel:[phone] Office/Outpa tient Visit, Est [facility] , [address], [place], [address], [place] tel:[phone] [facility] , Rheumatoid arthritis (chief complaint) Seropositive RAOsteopenia MyositisHigh risk medication monitoringBi lateral knee OA Apr- 6 [facility] Mario. [facility] [address], [place], [address], [place]. tel:[phone] Referring Provider: Mario Leary, [facility] [address], [place], [address]. tel:[phone] Office/Outpa tient Visit, Est [facility] , [address], [place], [address], [place] tel:[phone] [facility] , Rheumatoid arthritis (chief complaint) Seropositive RAOsteopenia MyositisHigh risk medication monitoringBi lateral knee OA 6 [facility] Mario. [facility] [address], [place], [address], [place]. tel:[phone] Referring Provider: Mario Leary, [facility] [address], [place], [address]. tel:[phone] [facility] , [address], [place], [address], [place] tel:[phone] [facility] , Seropositive RA 6 [facility] Mario. [facility] [address], [place], [address], [place]. tel:[phone] Referring Provider: Mario Leary, [facility] [address], [place], [address]. tel:[phone] [facility] , [address], [place], [address], [place] tel:[phone] [facility] , Seropositive RA 6 [facility] Mario. [facility] [address], [place], [address], [place]. tel:[phone] Referring Provider: Mario Leary, [facility] [address], [place], [address]. tel:[phone] Office/Outpa tient Visit, Est [facility] , [address], [place], [address], [place] tel:[phone] [facility] , Rheumatoid arthritis (chief complaint) Seropositive RAOsteopenia MyositisHigh risk medication monitoringBi lateral knee OA Kb Martin. [facility] [address], [place], [address], [place]. tel:[phone] Referring Provider: Mario Leary, [facility] [address], [place], [address]. tel:[phone] Office/Outpa tient Visit, Est [facility] , [address], [place], [address], [place] tel:[phone] [facility] , Rheumatoid arthritis (chief complaint) Rheumatoid ArthritisOst eoarthrosis, generalized, involving unspecified siteMyalgia and myositis, unspecifiedO steopeniaThe rapeutic Drug Monitoring 5 Kb Martin. [facility] , [facility] [address], [place], [address], [place]. tel:[phone] Referring Provider: Mario Leary, [facility] [address], [place], [address]. tel:[phone] [facility] , [address], [place], [address], [place] tel:[phone] [facility] , Rheumatoid Arthritis Kb Martin. [facility] , [facility] [address], [place], [address], [place]. tel:[phone] Referring Provider: Mario Leary, [facility] , [facility] [address], [place], [address]. tel:[phone] [facility] , [address], [place], [address], [place] tel:[phone] [facility] , Rheumatoid Arthritis Diana Lopez. [facility] , [facility] [address], [place], [address], [place]. tel:[phone] Referring Provider: John Gutierrez, [facility] , [facility] [address], [place], [address]. tel:[phone] Office/Outpa tient Visit, Est [facility] , [address], [place], [address], [place] tel:[phone] [facility] , Rheumatoid arthritis (chief complaint) Rheumatoid ArthritisOst eoarthrosis, generalized, involving unspecified siteMyalgia and myositis, unspecifiedO steopeniaThe rapeutic Drug Monitoring Kb Martin. [facility] , [facility] [address], [place], [address], [place]. tel:[phone] Referring Provider: Mario Leary, [facility] , [facility] [address], [place], [address]. tel:[phone] [facility] , [address], [place], [address], [place] tel:[phone] [facility] , Rheumatoid Arthritis Kbovidio Martin. [facility] , [facility] [address], [place], [address], [place]. tel:[phone] Referring Provider: Mario Leary, [facility] , [facility] [address], [place], [address]. tel:[phone] [facility] , [address], [place], [address], [place] tel:[phone] [facility] , Rheumatoid Arthritis [facility] Mario. [facility] , [facility] [address], [place], [address], [place]. tel:[phone] Office/Outpa tient Visit, Est [facility] , [address], [place], [address], [place] tel:[phone] [facility] , Rheumatoid arthritis (chief complaint) Rheumatoid ArthritisOst eoarthrosis, generalized, involving unspecified siteOsteopen iaMyalgia and myositis, unspecifiedT herapeutic Drug Monitoring [facility] Mario. [facility] , [facility] [address], [place], [address], [place]. tel:[phone] Referring Provider: Mario Leary, [facility] , [facility] [address], [place], [address]. tel:[phone] [facility] , [address], [place], [address], [place] tel:[phone] [facility] , Rheumatoid Arthritis Kbdenisa Martin. [facility] , [facility] [address], [place], [address], [place]. tel:[phone] Referring Provider: Mario Leary, [facility] , [facility] [address], [place], [address]. tel:[phone] [facility] , [address], [place], [address], [place] tel:[phone] [facility] , Rheumatoid Arthritis 0 4 Kb Martin. [facility] , [facility] [address], [place], [address], [place]. tel:[phone] [facility] , [address], [place], [address], [place] tel:[phone] [facility] , Rheumatoid Arthritis 4 Kb Martin. [facility] , [facility] [address], [place], [address], [place]. tel:[phone] Referring Provider: Mario Leary, [facility] , [facility] [address], [place], [address]. tel:[phone] [facility] , [address], [place], [address], [place] tel:[phone] [facility] , Rheumatoid Arthritis 4 Kb Martin. [facility] , [facility] [address], [place], [address], [place]. tel:[phone] Office/Outpa tient Visit, Est [facility] , [address], [place], [address], [place] tel:[phone] [facility] , Rheumatoid Arthritis (chief complaint) Rheumatoid ArthritisMya lgia and myositis, unspecifiedD isorder of bone and cartilage, unspecifiedT herapeutic Drug MonitoringAb normal Liver Enzymes Nov- 4 Kb Mario. [facility] , [facility] [address], [place], [address], [place]. tel:[phone] Referring Provider: Mario Leary, [facility] , [facility] [address], [place], [address]. tel:[phone] [facility] , [address], [place], [address], [place] [phone] [facility] , Rheumatoid Arthritis Oct- 4 Kb Mario. [facility] , [facility] [address], [place], [address], [place]. tel:[phone] Referring Provider: Mario Leary, [facility] , [facility] [address], [place], [address]. tel:[phone] [facility] , [address], [place], [address], [place] tel:[phone] [facility] , Rheumatoid Arthritis 4 [facility] Mario. [facility] , [facility] [address], [place], [address], [place]. tel:[phone] Office/Outpa tient Visit, Est [facility] , [address], [place], [address], [place] tel:[phone] [facility] , Rheumatoid Arthritis (chief complaint) Rheumatoid ArthritisMya lgia and myositis, unspecifiedD isorder of bone and cartilage, unspecifiedA bnormal Liver EnzymesThera peutic Drug Monitoring 4 Kb Martin. [facility] , [facility] [address], [place], [address], [place]. tel:[phone] Referring Provider: Mario Leary, [facility] , [facility] [address], [place], [address]. tel:[phone] [facility] , [address], [place], [address], [place] tel:[phone] [facility] , Rheumatoid Arthritis 4 Kb Martin. [facility] , [facility] [address], [place], [address], [place]. tel:[phone] Referring Provider: Mario Leary, [facility] , [facility] [address], [place], [address]. tel:[phone] [facility] , [address], [place], [address], [place] tel:[phone] [facility] , Rheumatoid Arthritis 4 Kb Martin. [facility] , [facility] [address], [place], [address], [place]. tel:[phone] Referring Provider: Mario Leary, [facility] , [facility] [address], [place], [address]. tel:[phone] [facility] , [address], [place], [address], [place] tel:[phone] [facility] , Rheumatoid Arthritis 4 Kb Martin. [facility] , [facility] [address], [place], [address], [place]. tel:[phone] Office/Outpa tient Visit, Est [facility] , [address], [place], [address], [place] tel:[phone] [facility] , Rheumatoid Arthritis (chief complaint) Rheumatoid ArthritisMya lgia and myositis, unspecifiedT herapeutic Drug MonitoringDi sorder of bone and cartilage, unspecifiedA bnormal Liver Enzymes 4 Kb Martin. [facility] , [facility] [address], [place], [address], [place]. tel:[phone] Referring Provider: Mario Leary, [facility] , [facility] [address], [place], [address]. tel:[phone] [facility] , [address], [place], [address], [place] tel:[phone] [facility] , No Information 4 Kb Martin. [facility] , [facility] [address], [place], [address], [place]. tel:[phone] Referring Provider: Mario Leary, [facility] , [facility] [address], [place], [address]. tel:[phone] [facility] , [address], [place], [address], [place] tel:[phone] [facility] , Rheumatoid Arthritis 4 Kb Martin. [facility] , [facility] [address], [place], [address], [place]. tel:[phone] Referring Provider: Mario Leary, [facility] , [facility] [address], [place], [address]. tel:[phone] [facility] , [address], [place], [address], [place] tel:[phone] [facility] , Rheumatoid Arthritis 4 Kb Martin. [facility] , [facility] [address], [place], [address], [place]. tel:[phone] Office/Outpa tient Visit, Est [facility] , [address], [place], [address], [place] tel:[phone] [facility] , Rheumatoid Arthritis (chief complaint) Rheumatoid ArthritisUns pecified disorder of synovium, tendon, and bursaTherape utic Drug MonitoringOt her specified counselingMy algia and myositis, unspecified 4 Kbovidio Martin. [facility] , [facility] [address], [place], [address], [place]. tel:[phone] Referring Provider: Mario Leary, [facility] , [facility] [address], [place], [address]. tel:[phone] [facility] , [address], [place], [address], [place] tel:[phone] [facility] , Rheumatoid Arthritis 4 Kbovidio Martin. [facility] , [facility] [address], [place], [address], [place]. tel:[phone] Referring Provider: Mario Leary, [facility] , [facility] [address], [place], [address]. tel:[phone] [facility] , [address], [place], [address], [place] tel:[phone] [facility] , Rheumatoid Arthritis 4 Kb Martin. [facility] , [facility] [address], [place], [address], [place]. tel:[phone] [facility] , [address], [place], [address], [place] tel:[phone] [facility] , Rheumatoid Arthritis 3 Kb Martin. [facility] , [facility] [address], [place], [address], [place]. tel:[phone] Referring Provider: Mario Leary, [facility] , [facility] [address], [place], [address]. tel:[phone] [facility] , [address], [place], [address], [place] tel:[phone] [facility] , Rheumatoid Arthritis 3 Kb Martin. [facility] , [facility] [address], [place], [address], [place]. tel:[phone] Office/Outpa tient Visit, Est [facility] , [address], [place], [address], [place] tel:[phone] [facility] , Rheumatoid Arthritis (chief complaint) Rheumatoid ArthritisOth er specified counselingTh erapeutic Drug MonitoringMy algia and myositis, unspecified 2 3 Kb Martin. [facility] , [facility] [address], [place], [address], [place]. tel:[phone] Referring Provider: Mario Leary, [facility] , [facility] [address], [place], [address]. tel:[phone] [facility] , [address], [place], [address], [place] tel:[phone] [facility] , Rheumatoid Arthritis 3 [facility] Mario. [facility] , [facility] [address], [place], [address], [place]. tel:[phone] Referring Provider: Mario Leary, [facility] , [facility] [address], [place], [address]. tel:[phone] [facility] , [address], [place], [address], [place] tel:[phone] [facility] , Rheumatoid Arthritis [facility] Mario. [facility] , [facility] [address], [place], [address], [place]. tel:[phone] [facility] , [address], [place], [address], [place] tel:[phone] [facility] , Rheumatoid Arthritis [facility] Mario. [facility] , [facility] [address], [place], [address], [place]. tel:[phone] [facility] , [address], [place], [address], [place] tel:[phone] [facility] , Rheumatoid Arthritis Kbovidio Martin. [facility] , [facility] [address], [place], [address], [place]. tel:[phone] Referring Provider: Mario Leary, [facility] , [facility] [address], [place], [address]. tel:[phone] [facility] , [address], [place], [address], [place] tel:[phone] [facility] , Rheumatoid Arthritis Kb Martin. [facility] , [facility] [address], [place], [address], [place]. tel:[phone] Office/Outpa tient Visit, Est [facility] , [address], [place], [address], [place] tel:[phone] [facility] , Rheumatoid Arthritis (chief complaint) Rheumatoid ArthritisOth er specified [facility] centerTh erapeutic Drug MonitoringMy algia and myositis, unspecified Kb Martin. [facility] , [facility] [address], [place], [address], [place]. tel:[phone] Referring Provider: Mario Leary, [facility] , [facility] [address], [place], [address]. tel:[phone] [facility] , [address], [place], [address], [place] tel:[phone] [facility] , Rheumatoid Arthritis 3 Kb Martin. [facility] , [facility] [address], [place], [address], [place]. tel:[phone] Referring Provider: Mario Leary, [facility] , [facility] [address], [place], [address]. tel:[phone] [facility] , [address], [place], [address], [place] tel:[phone] [facility] , Rheumatoid Arthritis [facility] Mario. [facility] , [facility] [address], [place], [address], [place]. tel:[phone] [facility] , [address], [place], [address], [place] tel:[phone] [facility] , No Information Apr-0 [facility] Mario. [facility] , [facility] [address], [place], [address], [place]. tel:[phone] Referring Provider: Mario Leary, [facility] , [facility] [address], [place], [address]. tel:[phone] [facility] , [address], [place], [address], [place] tel:[phone] [facility] , Rheumatoid Arthritis [facility] Mario. [facility] , [facility] [address], [place], [address], [place]. tel:[phone] Office/Outpa tient Visit, Est [facility] , [address], [place], [address], [place] tel:[phone] [facility] , Rheumatoid Arthritis (chief complaint) Rheumatoid ArthritisOth er specified counselingTh erapeutic Drug MonitoringOs teoarthrosis , generalized, involving unspecified siteMyalgia and myositis, unspecified 3 Kb Martin. [facility] , [facility] [address], [place], [address], [place]. tel:[phone] Referring Provider: Mario Leary, [facility] , [facility] [address], [place], [address]. tel:[phone] [facility] , [address], [place], [address], [place] tel:[phone] [facility] , Rheumatoid Arthritis 3 Kbovidio Martin. [facility] , [facility] [address], [place], [address], [place]. tel:[phone] Referring Provider: Mario Leary, [facility] , [facility] [address], [place], [address]. tel:[phone] [facility] , [address], [place], [address], [place] tel:[phone] [facility] , Rheumatoid Arthritis 3 Kb Martin. [facility] , [facility] [address], [place], [address], [place]. tel:[phone] [facility] , [address], [place], [address], [place] tel:[phone] [facility] , Monitor chronic high risk medications (chief complaint) No Information 3 Kb Martin. [facility] , [facility] [address], [place], [address], [place]. tel:[phone] Referring Provider: Mario Kb A, [facility] , [facility] [address], [place], [address]. [phone] [facility] , [address], [place], [address], [place] tel:[phone] [facility] , Rheumatoid Arthritis 2 Priscila Munguia. [address], [place], [id number], [place]. tel:[phone] Referring Provider: Ezra Davies, [address], [place], [address]. tel:[phone] [facility] , [address], [place], [address], [place] tel:[phone] [facility] , Rheumatoid Arthritis 2 Kb Martin. [facility] , [facility] [address], [place], [address], [place]. tel:[phone] [facility] , [address], [place], [address], [place] tel:[phone] [facility] , Rheumatoid Arthritis 2 Kb Mario. [facility] , [facility] [address], [place], [address], [place]. tel:[phone] Office/Outpa tient Visit, Est [facility] , [address], [place], [address], [place] tel:[phone] [facility] , Rheumatoid Arthritis (chief complaint) Rheumatoid ArthritisOth er specified [facility] centerTh erapeutic Drug MonitoringOs teoarthrosis , generalized, involving unspecified siteMyalgia and myositis, unspecified 2 Kb Mario. [facility] , [facility] [address], [place], [address], [place]. tel:[phone] Referring Provider: Mario Leary, [facility] , [facility] [address], [place], [address]. tel:[phone] [facility] , [address], [place], [address], [place] tel:[phone] [facility] , No Information 2 Kb Martin. [facility] , [facility] [address], [place], [address], [place]. tel:[phone] Referring Provider: Mario Leary, [facility] , [facility] [address], [place], [address]. tel:[phone] [facility] , [address], [place], [address], [place] tel:[phone] [facility] , No Information 2 Kb Mario. [facility] , [facility] [address], [place], [address], [place]. tel:[phone] Referring Provider: Mario Leary, [facility] , [facility] [address], [place], [address]. tel:[phone] [facility] , [address], [place], [address], [place] tel:[phone] [facility] , Rheumatoid Arthritis 2 Kb Martin. [facility] , [facility] [address], [place], [address], [place]. tel:[phone] Office/Outpa tient Visit, Est [facility] , [address], [place], [address], [place] tel:[phone] [facility] , Rheumatoid Arthritis (chief complaint) Rheumatoid ArthritisThe rapeutic Drug MonitoringOt her specified counselingOs teoarthrosis , generalized, involving unspecified siteMyalgia and myositis, unspecifiedG ERD 2 Kb Martin. [facility] , [facility] [address], [place], [address], [place]. tel:[phone] Referring Provider: Glenn Cleaning [address], [address]. tel:[phone] Family History Family Member Type Diagnosis Age At Onset Problem (finding) No family hist ory of Rheumatoid arthritis Immunizations Vaccine Date Status Comments COVID-19 Pfizer administered Note: 2020 ; Source: Other Provider Payers Payer name Insurance type Covered democrat ID Authoriza tion(s) [employer] Advantage/[employer] Blue [id number] Social History Type Description Quantity Date Captured [...]
--- OUTSIDE RECORDS SUMMARY | 2024-05-03 11:35 | XMS_ITS | Clinical Summary ---
Author Organization [facility] Address [address] [place] [address] Care Team Providers Care Flatwork Tier Name Role Phone Unavailable Primary Care Provider Unavailabl e Source Comments Patient records contain information from all sites at [facility]. For routine questions regarding patient records, call [phone] during business hours, M-F 8:00 AM - 5:00 PM Central Time. 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
--- OUTSIDE RECORDS SUMMARY | 2024-05-03 11:35 | XMS_ITS | Continuity of Care Document ---
Author Organization [facility] Address [address] [place] [address] Phone Care Team Providers Care Events And Promotions Assistant Name Role Phone Leyla SRIVASTAVA, PhD, Javi Unavailable Unavai lable Allergies, Adverse Reactions, Alerts Substance Reaction Status Criticality tizanidine Active No Information gluten Active No Information Fccbvzp-DOU-HbN Reductase Inhibitors Acti ve No Information POLYMYXIN [...] C, [address], [place], [id number], [place] tel:[phone] [facility] - [facility] Specialty [place] Arthrodesis status Leyla Caldwell. [facility], [address], [place], [address], [place]. tel:[phone] Referring Provider: Glenn Francisco, [address], [address]. tel:[phone] Office/Outpat ient Visit,Est, Mod [facility], [address], [place], [id number], [place] tel:[phone] [facility] Arthrodesis status Leyla Caldwell. [facility] [place], [address], [place], [address], [place]. [phone] Referring Provider: Glenn Francisco, [facility] [address] [place], [address]. tel:[phone] [facility], [address], [place], [id number], [place] tel:[phone] [facility] Arthrodesis status Leyla Caldwell. [facility] [place], [address], [place], [address], [place]. [phone] Referring Provider: Glenn Francisco, [facility] [address] [place], [address]. tel:[phone] [facility], [address], [place], [id number], [place] tel:[phone] [facility] Arthrodesis status Leyla Caldwell. [facility] [place], [address], [place], [address], [place]. [phone] Referring Provider: Glenn Francisco, [facility] [address] [place], [address]. tel:[phone] [facility], [address], [place], [id number], [place] tel:[phone] [facility] No Information Chris Bailey. [facility] [place], [address], [facility] [place], [id number] , [place]. [phone] Referring Provider: Glenn Francisco, [facility] [address] [place], [address]. tel:[phone] [facility], [address], [place], [id number], [place] tel:[phone] [facility] No Information Leyla Caldwell. [facility], [address], [place], [address], [place]. tel:[phone] Ref[facility]: [facility] [address] [place], [address]. tel:[phone] Office/Outpat ient Visit,[facility], [facility], [address], [place], [place], [id number], [place] tel:[phone] [facility] - [place] Spondylolisth esis, lumbar region Leyla Caldwell. [facility], [address], [place], [address], [place]. tel:[phone] Referring Provider: [facility] [address] [place], [address]. tel:[phone] [facility], [address], [facility] [place], [place], [id number], [place] tel:[phone] [facility] - [place] back pain Leyla Caldwell. [facility], [address], [place], [address], [place]. tel:[phone] Family History Family Member Type Diagnosis Age At Onset No Information Payers Payer name Insurance type Covered constitution party ID Lia longoria([place]) [place] [id number] Medicare [facility] [id number] 1 Social History Type Description Quantity Date [...]
[2024-05-03 11:41] LABS: Troponin I* < 0.01 ng/mL (0.01-0.04)
== END 2024-05-03 14:06 | disposition home or self-care (01) ==
PROVIDERS: Emergency Provider Family Medicine; PCP Family Medicine
DX: R07.9 Chest pain, unspecified (principal); Z82.49 Family history of ischemic heart disease and other diseases of the circulatory system
CPT/HCPCS: 36415; 80048; 84484; 85025; 93005; 94761; 99284; A9270

== ENCOUNTER 2024-05-05 10:17 | Outpatient (CLI) | payer MEDICARE, BC, SELFPAY ==
[2024-05-05 13:31] LABS: Estimated Glomerular Filt Rate 60 ml/min
== END 2024-05-05 10:18 | disposition home or self-care (01) ==
LOC: NPINS 10:20
PROVIDERS: PCP Family Medicine; Visit Provider Internal Medicine
DX: I25.10 Atherosclerotic heart disease of native coronary artery without angina pectoris (principal)
CPT/HCPCS: 82565

== ENCOUNTER 2024-09-22 08:27 | Outpatient (CLI) | payer MEDICARE, BC, SELFPAY ==
--- NOTE | 2024-09-22 08:45 | CRLHL7_ITS ---
For Patients: As a result of the Century Cures Act, medical imaging exams and procedure reports are released immediately into your electronic medical record. You may view this report before your referring provider. If you have questions, please contact your health care provider. INDICATION: BILATERAL SCREENING MAMMOGRAM, ASYMPTOMATIC 74 Y/O FEMALE COMPARISON: 03/04/2023, 01/27/2022, 01/25/2021 TECHNIQUE: Digital mammogram in CC and MLO projections including computer-aided detection (CAD) and tomosynthesis. BREAST COMPOSITION: There are scattered areas of fibroglandular density. FINDINGS: No suspicious findings. ASSESSMENT: BI-RADS 1 Negative RECOMMENDATION: Annual screening mammogram. A lay language report of this examination will be provided to the patient. Dictated by: Shaniqua Mooney MD @ 09/24/2024 14:28:01 (Electronically Signed)
== END 2024-09-22 08:28 | disposition home or self-care (01) ==
LOC: MAMMO 08:28
PROVIDERS: PCP Family Medicine; Visit Provider Family Medicine
DX: Z12.31 Encounter for screening mammogram for malignant neoplasm of breast (principal)
CPT/HCPCS: 77063; 77067

== ENCOUNTER 2024-11-21 11:52 | Outpatient (CLI) | payer MEDICARE, BC, SELFPAY | END 2024-11-21 11:53 | disposition home or self-care (01) | PROVIDERS: PCP Family Medicine; Visit Provider Family Medicine | DX: I10 Essential (primary) hypertension (principal); E03.9 Hypothyroidism, unspecified; E78.2 Mixed hyperlipidemia | CPT/HCPCS: 80048; 80061; 84443 ==